=== PATIENT | female | born 1950 | race Caucasian/White ===

== ENCOUNTER 2020-01-03 11:23 | Inpatient (IN) | payer MEDICARE, MEDICAID ==
[~2020-01-03] VITALS: Ht 154.9 cm; Wt 124.0 kg
[2020-01-03 12:15] LABS: BARBITURATES NEG (NEG); BENZODIAZEPINES NEG (NEG); CANNABINOIDS NEG (NEG); COCAINE NEG (NEG); METHADONE NEG (NEG); OPIATES NEG (NEG); PHENCYCLIDINE NEG (NEG)
[2020-01-03 12:16] LABS: AMPHETAMINE/METHAMPHETAMINE NEG (NEG)
[2020-01-03 12:16] LABS: BASO % 0 % (0-3); EOS # 0.3 x10^3/uL (0.0-0.7); EOS % 4 % (0-3); HEMOGLOBIN 13.1 g/dL (12.0-15.5); LYMPH % 13 % (24-48); MEAN CORPUSCULAR HEMOGLOBIN 30 pg (25-35); MEAN CORPUSCULAR HGB CONC 33 g/dL (31-37); MEAN CORPUSCULAR VOLUME 93 fL (79-100); MONO # 0.6 x10^3/uL (0.0-1.1); MONO % 8 % (0-9); NEUT # 5.6 x10^3uL (1.8-7.7); NEUT % 75 % (31-73); PLATELET COUNT 199 x10^3/uL (140-400); RED BLOOD COUNT 4.32 x10^6/uL (3.50-5.40); RED CELL DISTRIBUTION WIDTH 14.8 % (11.5-14.5); WHITE BLOOD COUNT 7.5 x10^3/uL (4.0-11.0)
[2020-01-03 12:20] LABS: CALCIUM 8.3 mg/dL (8.5-10.1); CREATININE 0.8 mg/dL (0.6-1.0); GFR 71.5; POTASSIUM 3.3 mmol/L (3.5-5.1)
--- NOTE | 2020-01-03 12:27 | PHYS DOC ---
Past History Past Medical History: Arthritis, Cancer, Constipation, Depression, GERD, Hypertension, Hypothyroid, IBS, Schizophrenia, Other Additional Past Medical Histor: uterian cancer Past Surgical History: Appendectomy, Tonsillectomy, Other Additional Past Surgical Histo: exploratory abd; cystocele; uncertain if had hysterectomy Smoking: Non-smoker Alcohol Use: None Drug Use: None Adult General Chief Complaint Chief Complaint: PSYCH EVALUATION HPI HPI Patient is a pleasant 69-year-old female who presents to the ED for medical clearance before admission to the [facility] unit. Patient states that her only complaint is regarding a small skin tear on the right lower extremity that occurred as a result of a fall approximately 1 month prior. Patient is morbidly obese with chronic venous stasis and lower extremity edema at baseline. She wears 3 L O2 by nasal cannula at baseline and is currently at her baseline without increase of shortness of breath, work of breathing, or cough. She currently denies chest pain, patient's, fever, chills, urinary complaints, or changes in bowel or bladder habits. She denies active or passive suicidal ideation or homicidal ideation. She denies auditory or visual hallucination. Review of Systems Review of Systems Constitutional: Denies fever or chills Eyes: Denies redness or eye pain HENT: Denies nasal congestion or sore throat Respiratory: Denies cough or increase in shortness of breath Cardiovascular: Denies chest pain or palpitations GI: Denies abdominal pain, nausea, or vomiting : Denies dysuria or hematuria Musculoskeletal: Reports chronic back and joint pain. Reports chronic lower extremity edema. Integument: Reports right lower extremity skin tear. Denies rash. Neurologic: Denies headache, focal weakness or sensory changes Complete systems were reviewed and found to be within normal limits, except as documented in this note. Allergies Allergies Allergies Coded Allergies Type Severity Reaction Last Updated Verified Penicillins Allergy Unknown 01/03/20 Yes Sulfa (Sulfonamide Antibiotics) Allergy Unknown 01/03/20 Yes Physical Exam Physical Exam Constitutional: Morbidly obese female in hospital bed. Patient is pleasant and conversational during exam. In no acute distress and nontoxic in appearance HENT: Normocephalic, atraumatic, oropharynx moist Eyes: Conjunctiva normal, no discharge Cardiovascular: Heart rate normal, regular rhythm Lungs & Thorax: Diminished at bases,. No wheezing present. Poor inspiratory effort. No acute respiratory distress Abdomen: Soft, no tenderness Skin: Small skin tear noted to the lateral aspect of right leg. Dressing in place. Mild drainage present. Extremities: Bilateral lower extremity edema with discoloration consistent with chronic venous stasis dermatitis. Neurologic: Alert and oriented, no focal deficits noted Psychologic: Affect normal, judgment normal Current Patient Data Vital Signs Vital Signs Date Time Temp Pulse Resp B/P (MAP) Pulse Ox O2 Delivery O2 Flow Rate FiO2 01/03/20 11:37 98.3 77 18 145/81 (102) 98 Room Air EKG EKG 1157: Normal sinus rhythm with rate of 85. Normal axis. QT 374. QTC 445. QRS 86. No ST segment elevation or depression. Radiology/Procedures Radiology/Procedures PROCEDURE: CHEST AP ONLY CHEST AP ONLY History: Cough Comparison: None. Findings: Single view of the chest is submitted. There is mild right perihilar opacity which may be mild infiltrate. There is no dependent pleural fluid or pneumothorax. Cardiac silhouette is borderline in size. There is some degenerative change of the acromioclavicular joints bilaterally. Impression: 1. There is right perihilar opacity which may be infiltrate for which short-term follow-up treatment such as in 2-3 months may be beneficial. Electronically signed by: Domenic Gaspar MD (01/03/2020 12:56 PM) [id number] Course & Med Decision Making Course & Med Decision Making Pertinent Labs and Imaging studies reviewed. (See chart for details) Female presents to ED for medical clearance from [facility] with plan for admittance to [facility]. Nontoxic. EKG stable. Labs obtained and posted to chart. Hypokalemia addressed. UA with signs of infection. Empiric antibiotic given. Patient deemed medically cleared for inpatient psychiatric services. Will continued planned admission to senior behavioral unit for admission for further evaluation and treatment. with Dr. Morrow. Discussed findings and plan with patient, who acknowledges understanding and agreement. Dragon Disclaimer Dragon Disclaimer This electronic medical record was generated, in whole or in part, using a voice recognition dictation system. Departure Departure: Impression: Primary Impression: Medical clearance for psychiatric admission Additional Impressions: Hypokalemia Acute UTI Disposition: ADMITTED INPATIENT ([facility]) Condition: STABLE Referrals: CAS NICOLE DO (PCP) Problem Qualifiers CLARA KOHLER DO Jan 03, 2020 12:27
[2020-01-03 12:30] LABS: ACETAMIN < 2.0 mcg/mL (10-30); SALIC 0.9 mg/dL (2.8-20.0)
[2020-01-03 12:32] LABS: BILIRUBIN,URINE NEG (NEG); CLARITY,URINE CLEAR; COLOR,URINE YELLOW; GLUCOSE,URINE NEG (NEG)
[2020-01-03 12:33] LABS: BACTERIA,URINE 0 /HPF (0-FEW); NITRITE,URINE NEG (NEG); RBC,URINE OCC /HPF (0-2); SQUAMOUS EPITHELIAL CELL,UR MANY /LPF; UROBILINOGEN,URINE 0.2 mg/dL (0.2 mg/dL)
[2020-01-03 12:36] LABS: ALBUMIN 3.2 g/dL (3.4-5.0); ALBUMIN/GLOBULIN RATIO 0.8 (1.0-1.7); TOTAL BILIRUBIN 0.2 mg/dL (0.2-1.0); TOTAL PROTEIN 7.3 g/dL (6.4-8.2)
--- NOTE | 2020-01-03 12:59 | RAD ---
CHEST AP ONLY History: Cough Comparison: None. Findings: Single view of the chest is submitted. There is mild right perihilar opacity which may be mild infiltrate. There is no dependent pleural fluid or pneumothorax. Cardiac silhouette is borderline in size. There is some degenerative change of the acromioclavicular joints bilaterally. Impression: 1. There is right perihilar opacity which may be infiltrate for which short-term follow-up treatment such as in 2-3 months may be beneficial. Electronically signed by: Domenic Gaspar MD (01/03/2020 12:56 PM) [id number]
[2020-01-03] MEDS ORDERED: CEPHALEXIN 250 MG CAPSULE PO ONE (13:00)
[2020-01-03] MEDS ORDERED: POTASSIUM CHLORIDE 20 MEQ TABLET.ER. PO ONE ×2 (13:15)
--- NOTE | 2020-01-03 13:30 | EKG ---
[address] [address] Test Date: 2020-01-03 Test Time: 11:57:19 Pat Name: JASON FERMIN Department: Room: Gender: F [employer] Recovery: : 1950 Requested By: CLARA KOHLER Order Number: [id number] Reading MD: Carrillo Sanz Measurements Intervals [place] Rate: 85 P: 20 CO: 118 QRS: 16 QRSD: 86 T: 56 QT: 374 QTc: 445 Interpretive Statements SINUS RHYTHM NORMAL ECG Electronically Signed On 01-27-2020 8:36:43 CDT by Carrillo Sanz
[2020-01-03] MEDS: POLYVINYL ALCOHOL 1.4% OPHTH SOLUTION 15ML BOTTLE. OU SCH ×2 (14:00→21:00)
[2020-01-03] MEDS ORDERED: ACETAMINOPHEN 325 MG TABLET PO PRN (14:00)
[2020-01-03] MEDS: ACETAMINOPHEN 325 MG TABLET PO SCH ×2 (14:00→21:34)
[2020-01-03] MEDS ORDERED: MAG HYDROX/AL HYDROX/SIMETH 30 ML ORAL.SUSP PO PRN (14:00)
[2020-01-03] MEDS ORDERED: POLY15DR27 EACHEYE (14:01)
[2020-01-03] MEDS ORDERED: LEVO50TA5 PO (14:20)
[2020-01-03] MEDS ORDERED: TOPI100T8 PO (14:20)
[2020-01-03] MEDS ORDERED: METO5TAB4 PO (14:20)
[2020-01-03] MEDS ORDERED: POTA20TA4 PO (14:20)
[2020-01-03] MEDS ORDERED: LORA10TA55 PO (14:20)
[2020-01-03] MEDS ORDERED: ASPI81TA50 PO (14:20)
[2020-01-03] MEDS ORDERED: QUET100T4 PO (14:20)
[2020-01-03] MEDS ORDERED: ACET325T9 PO ×2 (14:20)
[2020-01-03] MEDS ORDERED: DULO60CA98 PO (14:20)
[2020-01-03] MEDS ORDERED: BENZ1TAB5 PO (14:20)
[2020-01-03] MEDS ORDERED: DIPH25CA58 PO (14:20)
[2020-01-03] MEDS ORDERED: LINA145C PO (14:20)
[2020-01-03] MEDS ORDERED: SPIR25TA5 PO (14:20)
[2020-01-03] MEDS ORDERED: MIRT30TA93 PO (14:20)
[2020-01-03] MEDS ORDERED: LATA2.5D3 EACHEYE (14:20)
[2020-01-03] MEDS ORDERED: MAG355OR12 PO (14:20)
[2020-01-03] MEDS ORDERED: MAGNESIUM HYDROXIDE 2,400 MG/30 ML ORAL.SUSP. PO PRN (14:30)
[2020-01-03] MEDS ORDERED: METHYL SALICYLATE/MENTHOL TOPICAL OINTMENT 57GM TUBE. TP PRN (14:30)
[2020-01-03 15:45] VITALS: BP 154/66
[2020-01-03 16:21] VITALS: BP 154/66
[2020-01-03] MEDS: LUBIPROSTONE 24 MCG CAPSULE PO SCH (18:00)
--- NOTE | 2020-01-03 21:25 | PDOC ---
Exam Note: David Note: Please also refer to the separate dictated note~for this date of service dictated separately. Discussed the patient with Nursing staff reviewed the chart.~Reviewed interim history and current functioning. Reviewed vital signs,~Labs/ Radiology~and current medications noted below. Continue current treatment with the changes noted in the dictated addendum note Assessment: Vital Signs/I&O: Vital Signs Date Time Temp Pulse Resp B/P (MAP) Pulse Ox O2 Delivery O2 Flow Rate FiO2 01/03/20 16:21 97.7 77 20 154/66 (95) 100 Room Air 3.0 Labs: Laboratory Tests Test 01/03/20 11:45 01/03/20 11:50 01/03/20 12:04 Urine Collection Type Unknown Urine Color Yellow Urine Clarity Clear Urine pH 7.0 Urine Specific [place] 1.015 Urine Protein Neg (NEG-TRACE) Urine Glucose (UA) Neg mg/dL (NEG) Urine Ketones (Stick) Neg mg/dL (NEG) Urine Blood Neg (NEG) Urine Nitrite Neg (NEG) Urine Bilirubin Neg (NEG) Urine Urobilinogen Dipstick 0.2 mg/dL (0.2 mg/dL) Urine Leukocyte Esterase Trace (NEG) Urine RBC Occ /HPF (0-2) Urine WBC 11-20 /HPF (0-4) Urine Squamous Epithelial Cells Many /LPF Urine Bacteria 0 /HPF (0-FEW) Urine Opiates Screen Neg (NEG) Urine Methadone Screen Neg (NEG) Urine Barbiturates Neg (NEG) Urine Phencyclidine Screen Neg (NEG) Urine Amphetamine/Methamphetamine Neg (NEG) Urine Benzodiazepines Screen Neg (NEG) Urine Cocaine Screen Neg (NEG) Urine Cannabinoids Screen Neg (NEG) Urine Ethyl Alcohol Neg (NEG) White Blood Count 7.5 x10^3/uL (4.0-11.0) Red Blood Count 4.32 x10^6/uL (3.50-5.40) Hemoglobin 13.1 g/dL (12.0-15.5) Hematocrit 40.0 % (36.0-47.0) Mean Corpuscular Volume 93 fL (79-100) Mean Corpuscular Hemoglobin 30 pg (25-35) Mean Corpuscular Hemoglobin Concent 33 g/dL (31-37) Red Cell Distribution Width 14.8 % (11.5-14.5) H Platelet Count 199 x10^3/uL (140-400) Neutrophils (%) (Auto) 75 % (31-73) H Lymphocytes (%) (Auto) 13 % (24-48) L Monocytes (%) (Auto) 8 % (0-9) Eosinophils (%) (Auto) 4 % (0-3) H Basophils (%) (Auto) 0 % (0-3) Neutrophils # (Auto) 5.6 x10^3uL (1.8-7.7) Lymphocytes # (Auto) 1.0 x10^3/uL (1.0-4.8) Monocytes # (Auto) 0.6 x10^3/uL (0.0-1.1) Eosinophils # (Auto) 0.3 x10^3/uL (0.0-0.7) Basophils # (Auto) 0.0 x10^3/uL (0.0-0.2) Sodium Level 138 mmol/L (136-145) Potassium Level 3.3 mmol/L (3.5-5.1) L Chloride Level 98 mmol/L (98-107) Carbon Dioxide Level 31 mmol/L (21-32) Anion Gap 9 (6-14) Blood Urea Nitrogen 14 mg/dL (7-20) Creatinine 0.8 mg/dL (0.6-1.0) Estimated GFR (Cockcroft-Gault) 71.5 BUN/Creatinine Ratio 18 (6-20) Glucose Level 94 mg/dL (70-99) Calcium Level 8.3 mg/dL (8.5-10.1) L Magnesium Level 2.0 mg/dL (1.8-2.4) Total Bilirubin 0.2 mg/dL (0.2-1.0) Aspartate Amino Transferase (AST) 18 U/L (15-37) Alanine Aminotransferase (ALT) 18 U/L (14-59) Alkaline Phosphatase 78 U/L (46-116) Creatine Kinase 105 U/L (26-192) Creatine Kinase MB (Mass) 2.3 ng/mL (0.0-3.6) Creatine Kinase MB Relative Index 2.2 % (0-4) Troponin I Quantitative 0.049 ng/mL (0-0.055) Total Protein 7.3 g/dL (6.4-8.2) Albumin 3.2 g/dL (3.4-5.0) L Albumin/Globulin Ratio 0.8 (1.0-1.7) L Salicylates Level 0.9 mg/dL (2.8-20.0) L Salicylate Last Dose Date Unknown Salicylate Last Dose Time Unknown Acetaminophen Level < 2.0 mcg/mL (10-30) L Acetaminophen Last Dose Date Unknown Acetaminophen Last Dose Time Unknown Ethyl Alcohol Level < 10 mg/dL (0-10) Prothrombin Time 10.2 SEC (9.4-11.4) Prothrombin Time INR 1.0 (0.9-1.1) Activated Partial Thromboplast Time 27 SEC (23-33) Current Medications: Meds: Current Medications Medications (Trade) Dose Ordered Sig/Carlos Route PRN Reason Start Time Stop Time Status Last Admin Dose Admin Cephalexin HCl (Keflex) 500 mg 1X ONCE PO 01/03/20 13:00 01/03/20 13:01 DC 01/03/20 13:17 Potassium Chloride (Klor-Con) 40 meq 1X ONCE PO 01/03/20 13:15 01/03/20 13:16 DC 01/03/20 13:18 Lubiprostone (Amitiza) 24 mcg BIDWMEALS PO 01/03/20 18:00 01/03/20 18:00 I have reviewed the current psychotropics carefully including drug interactions. Risk benefit ratio favors no change other than as noted in my dictated progress note. Diagnosis: Problems: (1) Medical clearance for psychiatric admission (2) Anxiety disorder (3) Schizoaffective disorder, chronic condition with acute exacerbation (4) Impulse control disorder TERRENCE DANIEL MD Jan 03, 2020 21:25
[2020-01-03] MEDS: QUEtiapine 100 MG TABLET. PO SCH (21:34)
[2020-01-03] MEDS: TOPIRAMATE 100 MG TABLET. PO SCH (21:34)
[2020-01-03] MEDS: DULoxetine HCL 60 MG CAPSULE.DR PO SCH (21:34)
[2020-01-03] MEDS: MIRTAZAPINE ODT 30 MG TAB.RAPDIS. PO SCH (21:34)
[2020-01-03] MEDS: BENZTROPINE MESYLATE 1 MG TABLET PO SCH (21:34)
[2020-01-03] MEDS: LATANOPROST 0.005% OPHTH SOLUTION 2.5ML BOTTLE. OU SCH (21:34)
[2020-01-04 05:07] LABS: HEMOGLOBIN A1C 5.5 % (4.8-5.6)
[2020-01-04] MEDS: LEVOTHYROXINE 50 MCG TABLET PO SCH (06:17)
[2020-01-04 06:36] VITALS: BP 136/81
[2020-01-04 08:07] LABS: THYROXINE 9.4 ug/dL (4.5-12.0)
[2020-01-04] MEDS: ACETAMINOPHEN 325 MG TABLET PO SCH ×3 (08:43→21:24)
[2020-01-04] MEDS: ASPIRIN ENTERIC COATED 81 MG TABLET.DR. PO SCH (08:43)
[2020-01-04] MEDS: LUBIPROSTONE 24 MCG CAPSULE PO SCH ×2 (08:43→17:00)
[2020-01-04] MEDS: QUEtiapine 100 MG TABLET. PO SCH ×2 (08:43→21:25)
[2020-01-04] MEDS: TOPIRAMATE 100 MG TABLET. PO SCH ×2 (08:43→21:22)
[2020-01-04] MEDS: POLYVINYL ALCOHOL 1.4% OPHTH SOLUTION 15ML BOTTLE. OU SCH ×3 (08:44→21:30)
[2020-01-04] MEDS: SPIRONOLACTONE 25 MG TABLET PO SCH (08:44)
[2020-01-04] MEDS: BENZTROPINE MESYLATE 1 MG TABLET PO SCH ×2 (08:44→21:37)
[2020-01-04] MEDS: CETIRIZINE HCL 10 MG TABLET PO SCH (08:44)
[2020-01-04] MEDS ORDERED: POTASSIUM CHLORIDE 20 MEQ TABLET.ER. PO SCH (09:00)
[2020-01-04 10:15] LABS: THYROID STIM HORMONE (TSH) 2.314 uIU/mL (0.358-3.740)
[2020-01-04] MEDS: POTASSIUM CHLORIDE 20 MEQ TABLET.ER. PO SCH ×2 (13:03→21:29)
--- NOTE | 2020-01-04 14:14 | CONS ---
DATE OF CONSULTATION: REASON FOR CONSULTATION: Medical management. HISTORY OF PRESENT ILLNESS: The patient is a 69-year-old female patient, a resident at [facility], who was admitted on account of increased anger, verbal aggression towards staff, refusing cares, argumentative, urinating on the floor, marked mood lability, threatening staff and peers, all this in a background of schizophrenia and major depressive disorder. Medically, she has multiple medical problems including hypertension, gastroesophageal reflux disease, irritable bowel syndrome, constipation, osteoporosis, glaucoma, hypothyroidism, hypokalemia, hypocalcemia and gait abnormality and muscle weakness. PAST PSYCHIATRIC HISTORY: Significant for major depressive disorder as well as schizophrenia. PAST SURGICAL HISTORY: Unremarkable. ALLERGIES: SHE IS ALLERGIC TO PENICILLIN, SULFA DRUGS AND ERYTHROMYCIN. MEDICATIONS: She is currently on following medications: She is on diphenhydramine 50 mg every 6 hours, loratadine 10 mg daily, spironolactone 25 mg daily, aspirin 81 mg once a day, acetaminophen 650 mg every 4 hours as needed, topiramate 150 mg twice a day for migraine headache, duloxetine 60 mg at bedtime, mirtazapine 30 mg at bedtime, Seroquel 100 mg twice a day, benztropine mesylate 1 mg twice a day, potassium chloride 40 mEq once a day, metolazone 5 mg once a week, latanoprost 1 drop to both eyes at bedtime, artificial tears 1 drop to both eyes 3 times a day, Maalox 30 mL every 4 hours, linaclotide for Linzess 145 mcg once a day, levothyroxine sodium 50 mcg once a day. FAMILY HISTORY: Noncontributory. SOCIAL HISTORY: She has been a resident at [facility] for almost 10 years. She does not smoke or drink alcohol. She said that she worked for about 5 years for a [employer]. PHYSICAL EXAMINATION: GENERAL: When I saw her, she was sitting comfortably in her wheelchair, in no apparent respiratory distress. No pallor, jaundice, cyanosis or thyromegaly. No jugular venous distention. No lower limb edema. She does have chronic bilateral lower extremity lymphedema. VITAL SIGNS: Her heart rate was 82, blood pressure 136/81, temperature was 97.8, respiratory rate was 18 and oxygen saturation was 95% on 2 liters of oxygen. HEAD, EYES, EARS, NOSE AND THROAT: Showed normocephalic, atraumatic. NECK: Supple. CARDIAC: Normal first and second heart sounds. No gallop or murmur. CHEST: Clear to auscultation. No crepitation or rhonchi. ABDOMEN: Markedly distended, soft, nontender. NEUROLOGIC: She is awake, alert, responding appropriately. All cranial nerves intact. She moves upper extremities to much greater extent than lower extremities. She is mostly bed-bound. She is able to ambulate with a walker with assistance. LABORATORY DATA: Her lab work showed a white cell count 7500, hemoglobin 13, hematocrit 40, MCV 93 and platelet count 199,000. Her prothrombin time, INR and aPTT were normal. Her chemistry showed that her serum sodium was 138, potassium 3.3, chloride 98, bicarbonate 31, anion gap of 9, BUN 14, creatinine 0.8, estimated GFR was 71 mL per minute. Her glucose was 94. Calcium was 8.3, magnesium was 2. Total bilirubin, AST, ALT, alkaline phosphatase were normal. Total protein was 7.3, albumin was 3.2. Her hemoglobin A1c was 5.5%. Serum iron was 26, TIBC was 231 and iron saturation was 111, all consistent with anemia of chronic disease. Her serum triglycerides 150, total cholesterol 122, LDL cholesterol 55, VLDL was 30, HDL cholesterol 37, the ratio was 3. TSH, total T4 and total T3 are all within normal range. Her urinalysis showed the urine was yellow, clear with a pH of 7, specific gravity of 1.015. The urine was negative for protein, glucose, ketones, blood, nitrite. There is a trace of leukocyte esterase. Occasional rbc's, 11-20 wbc's, and no bacteria. Her toxic screen was essentially negative. IMPRESSION: In summary, this is a 69-year-old female patient, a resident at [facility], who was admitted on account of increased anger, verbal aggression towards staff, refusing cares, argumentative, urinating on the floor with marked mood lability and threatening staff and peers, all this in a background of schizophrenia and major depressive disorder. Medically, she has multiple medical problems; however, she generally seemed to be stable. She does have hypokalemia despite being on 40 mEq of potassium chloride daily; however, her calcium is normal, although she carries a diagnosis of hypothyroidism, she is both clinically and biochemically euthyroid. PLAN: My plan is to increase her potassium may be to 3 times a day and other than that she seemed to be medically stable. I will follow all her lab works that are still pending at the time of this dictation and make any necessary recommendation. Thank you, Dr. Rico for allowing me to participate in the care of this patient. JENNIFER ARRIAGA MD DR: YOANA/macario JOB#: [id number] / [id number]
[2020-01-04 15:57] VITALS: BP 149/81
--- NOTE | 2020-01-04 21:19 | PDOC ---
Exam Note: David Note: Please also refer to the separate dictated note~for this date of service dictated separately.~Patient seen individually. Discussed the patient with Nursing staff reviewed the chart.~Reviewed interim history and current functioning. Reviewed vital signs,~Labs/ Radiology~and current medications noted below. Continue current treatment with the changes noted in the dictated addendum note Assessment: Vital Signs/I&O: Vital Signs Date Time Temp Pulse Resp B/P (MAP) Pulse Ox O2 Delivery O2 Flow Rate FiO2 01/04/20 15:57 97.4 89 16 149/81 (103) 98 01/04/20 06:36 Nasal Cannula 2.0 I & O 01/03/20 01/03/20 01/04/20 15:00 23:00 07:00 Intake Total 360 ml Balance 360 ml Current Medications: Meds: Current Medications Medications (Trade) Dose Ordered Sig/Carlos Route PRN Reason Start Time Stop Time Status Last Admin Dose Admin Aspirin (Aspirin Enteric Coated) 81 mg DAILY PO 01/04/20 09:00 01/04/20 08:43 Levothyroxine Sodium (Synthroid) 50 mcg DAILY06 PO 01/04/20 06:00 01/04/20 06:17 Potassium Chloride (Klor-Con) 40 meq DAILY PO 01/04/20 09:00 01/04/20 12:18 DC 01/04/20 08:44 Spironolactone (Aldactone) 25 mg DAILY PO 01/04/20 09:00 01/04/20 08:44 Cetirizine HCl (ZyrTEC) 10 mg DAILY PO 01/04/20 09:00 01/04/20 08:44 Potassium Chloride (Klor-Con) 20 meq TID PO 01/04/20 14:00 01/04/20 13:03 I have reviewed the current psychotropics carefully including drug interactions. Risk benefit ratio favors no change other than as noted in my dictated progress note. Diagnosis: Problems: (1) Anxiety disorder (2) Schizoaffective disorder, chronic condition with acute exacerbation (3) Impulse control disorder TERRENCE DANIEL MD Jan 04, 2020 21:19
[2020-01-04] MEDS: MIRTAZAPINE ODT 30 MG TAB.RAPDIS. PO SCH (21:24)
[2020-01-04] MEDS: DULoxetine HCL 60 MG CAPSULE.DR PO SCH (21:30)
[2020-01-04] MEDS: LATANOPROST 0.005% OPHTH SOLUTION 2.5ML BOTTLE. OU SCH (21:30)
--- NOTE | 2020-01-04 21:54 | HP ---
ADMIT DATE: 01/03/2020 PSYCHIATRIC ADMISSION HISTORY/EVALUATION The patient was seen individually evening of 01/03/2020. IDENTIFYING DATA: The patient is a 69-year-old female referred to us from [facility] by Dr. Lowry, her primary care physician on account of increasing anger, verbal aggression towards staff, refusing cares, argumentative, urinating on the floor, having marked mood lability, threatening staff and peers. This is within the context of a diagnosis of schizophrenia versus schizoaffective disorder, bipolar type. She had failed outpatient psychiatric interventions. Behaviors were deemed dangerous, unmanageable at the facility, resulting in this referral. CHIEF COMPLAINT: "I am okay." HISTORY OF PRESENT ILLNESS: The patient has a long history of schizoaffective disorder, bipolar type. She has been residing at the above facility for some time, but recently getting more agitated with marked mood lability, sleep and appetite changes, paranoia, agitation and aggression. No active suicidal or homicidal ideation. Cognitively, she is reasonably intact. PAST PSYCHIATRIC HISTORY: As above. MEDICAL HISTORY: Hypertension, GERD, irritable bowel syndrome, chronic constipation, osteoporosis, frequent falls, left knee pain, CHF, glaucoma, hypothyroidism, hypokalemia, hypocalcemia, gait abnormality and muscle weakness. ACCU-CHEKS: Negative. DIET: Regular. CODE STATUS: Full code. ALLERGIES: PENICILLIN and SULFA. Ambulates in wheelchair, transfers herself. CURRENT PSYCHOTROPICS: Cogentin 1 mg b.i.d., Cymbalta 60 mg at bedtime, Remeron 30 mg at bedtime, Seroquel 100 mg b.i.d. FAMILY HISTORY: Noncontributory. SOCIAL HISTORY: No history of alcohol, drug abuse, physical, sexual or elder abuse. She is not known to be a perpetrator. REACTION TO HOSPITALIZATION: The patient accepting of it. ASSETS: Supportive living at the above facility. MENTAL STATUS EXAMINATION: The patient was seen individually evening of 01/03/2020. She is in a wheelchair, oriented to herself, situations. Speech is coherent, has some latency. Abstraction fair, computation impaired, language function intact, attention span short. Mood and affect remains somewhat labile and she is paranoid, suspicious and distractible. No active suicidal or homicidal ideation. LABORATORY DATA: Reviewed. IMPRESSION: Schizoaffective disorder, bipolar type, mixed with psychotic features; anxiety disorder, unspecified; impulse control disorder. Rest as above. PLAN: Admit to Geropsychiatry Unit at [facility]. The patient will be seen daily individually from a psychiatric standpoint by myself, medical followup with Dr. Bragg. May consider reducing Cogentin given her history of chronic constipation. May consider adding a mood stabilizer with her schizoaffective disorder, bipolar type diagnosis and then adjusting Seroquel. We will make all these decisions post baseline assessment. TERRENCE DANIEL MD DR: GILDA/macario JOB#: [id number] / [id number]
[2020-01-05] MEDS: LEVOTHYROXINE 50 MCG TABLET PO SCH (06:19)
[2020-01-05 06:25] VITALS: BP_SYST 106; BP_SYST 157; BP_DIAS 62; BP_DIAS 87
[2020-01-05] MEDS: ASPIRIN ENTERIC COATED 81 MG TABLET.DR. PO SCH (08:17)
[2020-01-05] MEDS: TOPIRAMATE 100 MG TABLET. PO SCH ×2 (08:17→20:27)
[2020-01-05] MEDS: POTASSIUM CHLORIDE 20 MEQ TABLET.ER. PO SCH ×3 (08:18→20:29)
[2020-01-05] MEDS: DIVALPROEX 125 MG CAP.SPRINK PO SCH ×2 (08:18→20:29)
[2020-01-05] MEDS: ACETAMINOPHEN 325 MG TABLET PO SCH ×3 (08:18→20:26)
[2020-01-05] MEDS: QUEtiapine 100 MG TABLET. PO SCH ×2 (08:18→20:28)
[2020-01-05] MEDS: CETIRIZINE HCL 10 MG TABLET PO SCH (08:19)
[2020-01-05] MEDS: BENZTROPINE MESYLATE 1 MG TABLET PO SCH ×2 (08:19→20:28)
[2020-01-05] MEDS: SPIRONOLACTONE 25 MG TABLET PO SCH (08:19)
[2020-01-05] MEDS: POLYVINYL ALCOHOL 1.4% OPHTH SOLUTION 15ML BOTTLE. OU SCH ×3 (09:00→20:26)
[2020-01-05] MEDS: LUBIPROSTONE 24 MCG CAPSULE PO SCH ×2 (12:27→17:09)
[2020-01-05 15:33] VITALS: BP 136/85
[2020-01-05] MEDS: LATANOPROST 0.005% OPHTH SOLUTION 2.5ML BOTTLE. OU SCH (20:25)
[2020-01-05] MEDS: MIRTAZAPINE ODT 30 MG TAB.RAPDIS. PO SCH (20:28)
[2020-01-05] MEDS: DULoxetine HCL 60 MG CAPSULE.DR PO SCH (20:29)
--- NOTE | 2020-01-05 22:13 | PN ---
DATE: 01/04/2020 PSYCHIATRIC PROGRESS NOTE This late entry 01/04/2020 covers elements not covered in my initial note. SUBJECTIVE: I met with the patient evening of 01/04/2020. Per OSMANI Lopez, the patient slept 8-1/4 hours previous night. She has been helpful with her ADLs. REVIEW OF SYSTEMS: Ambulation impaired, in wheelchair. No CV, , pulmonary, eye, ENT system symptoms on review. MENTAL STATUS EXAM: Reasonably oriented. Speech is coherent, met with her at length in her room. Abstraction fair, computation impaired, language function intact, attention span short. Mood and affect somewhat anxious, slightly paranoid. LABORATORY DATA: Reviewed. IMPRESSION: Schizoaffective disorder, bipolar type, mixed with psychotic features. Rest unchanged. PLAN: She is on no mood stabilizer. We will start Depakote 250 b.i.d. Check CBC, CMP, valproic acid level in 3 days. She is on Cogentin 1 mg b.i.d. as a history of chronic constipation. No clear indication for the Cogentin. We will reduce to 0.5 mg twice a day. Maintain Seroquel 100 mg b.i.d., Remeron 30 mg at bedtime for now. Adjust further as clinically indicated. She does get a little short of breath, is on O2 at 2 liters during the day, 3 liters at night. MAN Dilan DANIEL MD DR: GILDA/macario JOB#: [id number] / [id number]
--- NOTE | 2020-01-05 22:40 | PDOC ---
Exam Note: David Note: Please also refer to the separate dictated note~for this date of service dictated separately.~Patient seen individually. Discussed the patient with Nursing staff reviewed the chart.~Reviewed interim history and current functioning. Reviewed vital signs,~Labs/ Radiology~and current medications noted below. Continue current treatment with the changes noted in the dictated addendum note Assessment: Vital Signs/I&O: Vital Signs Date Time Temp Pulse Resp B/P (MAP) Pulse Ox O2 Delivery O2 Flow Rate FiO2 01/05/20 15:33 98.2 87 18 136/85 (102) 98 01/05/20 06:25 2.0 01/04/20 06:36 Nasal Cannula I & O 0 01/04/20 01/04/20 01/05/20 15:00 23:00 07:00 Intake Total 600 ml 0 ml 400 ml Balance 600 ml 0 ml 400 ml Current Medications: Meds: Current Medications Medications (Trade) Dose Ordered Sig/Carlos Route PRN Reason Start Time Stop Time Status Last Admin Dose Admin Divalproex Sodium (Depakote Sprinkles) 250 mg BID PO 01/05/20 09:00 01/05/20 20:29 I have reviewed the current psychotropics carefully including drug interactions. Risk benefit ratio favors no change other than as noted in my dictated progress note. Diagnosis: Problems: (1) Acute UTI (2) Medical clearance for psychiatric admission (3) Anxiety disorder (4) Schizoaffective disorder, chronic condition with acute exacerbation (5) Impulse control disorder TERRENCE DANIEL MD Jan 05, 2020 22:40
[2020-01-06] MEDS: diphenhydrAMINE HCL 25 MG CAPSULE PO PRN (05:59)
[2020-01-06] MEDS: LEVOTHYROXINE 50 MCG TABLET PO SCH (05:59)
[2020-01-06 06:24] VITALS: BP 139/82
[2020-01-06] MEDS: DIVALPROEX 125 MG CAP.SPRINK PO SCH ×2 (08:38→20:14)
[2020-01-06] MEDS: POTASSIUM CHLORIDE 20 MEQ TABLET.ER. PO SCH ×3 (08:38→20:13)
[2020-01-06] MEDS: CETIRIZINE HCL 10 MG TABLET PO SCH (08:39)
[2020-01-06] MEDS: TOPIRAMATE 100 MG TABLET. PO SCH ×2 (08:39→20:15)
[2020-01-06] MEDS: QUEtiapine 100 MG TABLET. PO SCH ×2 (08:39→20:15)
[2020-01-06] MEDS: SPIRONOLACTONE 25 MG TABLET PO SCH (08:39)
[2020-01-06] MEDS: ACETAMINOPHEN 325 MG TABLET PO SCH ×3 (08:39→20:16)
[2020-01-06] MEDS: POLYVINYL ALCOHOL 1.4% OPHTH SOLUTION 15ML BOTTLE. OU SCH ×3 (08:40→20:12)
[2020-01-06] MEDS: ASPIRIN ENTERIC COATED 81 MG TABLET.DR. PO SCH (08:40)
[2020-01-06] MEDS: LUBIPROSTONE 24 MCG CAPSULE PO SCH ×2 (08:40→17:29)
[2020-01-06] MEDS: BENZTROPINE MESYLATE 1 MG TABLET PO SCH ×2 (08:40→20:13)
[2020-01-06 16:15] VITALS: BP 170/84
[2020-01-06] MEDS: LATANOPROST 0.005% OPHTH SOLUTION 2.5ML BOTTLE. OU SCH (20:12)
[2020-01-06] MEDS: DULoxetine HCL 60 MG CAPSULE.DR PO SCH (20:14)
[2020-01-06] MEDS: MIRTAZAPINE ODT 30 MG TAB.RAPDIS. PO SCH (20:15)
--- NOTE | 2020-01-06 20:38 | PN ---
DATE: 01/05/2020 PSYCHIATRIC PROGRESS NOTE This late entry 01/05/2020 covers the elements not covered in my initial note. SUBJECTIVE: I met with the patient in the evening of 01/05/2020. Per OSMANI Stoddard, the patient slept 5-1/2 hours previous night. She has been somewhat withdrawn, anxious, restless, somewhat obsessive, spends much time in her room, which is where I met with her. REVIEW OF SYSTEMS: Ambulation impaired, in wheelchair. No CV, , pulmonary, eye system symptoms on review. Complains of some tiredness, difficulty ambulating. Reliability fair. MENTAL STATUS EXAM: Oriented to herself and situation. Speech has some latency, coherent. Abstraction fair, computation impaired, language function intact, attention span short. Mood and affect withdrawn. LABORATORY DATA: Reviewed. IMPRESSION: Schizoaffective disorder, bipolar type, mixed. Rest unchanged. PLAN: No change from initial note. TERRENCE DANIEL MD DR: GILDA/macario JOB#: [id number] / [id number]
--- NOTE | 2020-01-06 21:47 | PDOC ---
Exam Note: David Note: Please also refer to the separate dictated note~for this date of service dictated separately.~Patient seen individually. Discussed the patient with Nursing staff reviewed the chart.~Reviewed interim history and current functioning. Reviewed vital signs,~Labs/ Radiology~and current medications noted below. Continue current treatment with the changes noted in the dictated addendum note Assessment: Vital Signs/I&O: Vital Signs Date Time Temp Pulse Resp B/P (MAP) Pulse Ox O2 Delivery O2 Flow Rate FiO2 01/06/20 16:15 98.0 88 16 170/84 (112) 96 2.0 01/04/20 06:36 Nasal Cannula I & O 01/05/20 01/05/20 01/06/20 15:00 23:00 07:00 Intake Total 600 ml 360 ml 100 ml Balance 600 ml 360 ml 100 ml Current Medications: Meds: Current Medications Medications (Trade) Dose Ordered Sig/Carlos Route PRN Reason Start Time Stop Time Status Last Admin Dose Admin Quetiapine Fumarate (SEROquel) 200 mg QHS PO 01/06/20 21:00 01/06/20 20:15 I have reviewed the current psychotropics carefully including drug interactions. Risk benefit ratio favors no change other than as noted in my dictated progress note. Diagnosis: Problems: (1) Anxiety disorder (2) Schizoaffective disorder, chronic condition with acute exacerbation (3) Impulse control disorder (4) Schizoaffective disorder, bipolar type TERRENCE DANIEL MD Jan 06, 2020 21:47
[2020-01-07 06:26] VITALS: BP 145/81
[2020-01-07] MEDS: LEVOTHYROXINE 50 MCG TABLET PO SCH (06:37)
[2020-01-07] MEDS: TOPIRAMATE 100 MG TABLET. PO SCH ×2 (07:23→21:09)
[2020-01-07] MEDS: ACETAMINOPHEN 325 MG TABLET PO SCH ×3 (07:24→21:08)
[2020-01-07] MEDS: SPIRONOLACTONE 25 MG TABLET PO SCH (07:25)
[2020-01-07] MEDS: CETIRIZINE HCL 10 MG TABLET PO SCH (07:25)
[2020-01-07] MEDS: POTASSIUM CHLORIDE 20 MEQ TABLET.ER. PO SCH ×3 (07:25→21:10)
[2020-01-07] MEDS: BENZTROPINE MESYLATE 1 MG TABLET PO SCH ×2 (07:26→21:10)
[2020-01-07] MEDS: LUBIPROSTONE 24 MCG CAPSULE PO SCH ×2 (07:26→17:22)
[2020-01-07] MEDS: ASPIRIN ENTERIC COATED 81 MG TABLET.DR. PO SCH (07:26)
[2020-01-07] MEDS: DIVALPROEX 125 MG CAP.SPRINK PO SCH ×2 (07:26→21:10)
[2020-01-07] MEDS: POLYVINYL ALCOHOL 1.4% OPHTH SOLUTION 15ML BOTTLE. OU SCH ×3 (07:27→21:11)
[2020-01-07 16:06] VITALS: BP 149/67
[2020-01-07] MEDS ORDERED: NYSTATIN TOPICAL POWDER 15GM BOTTLE. TP PRN (17:30)
--- NOTE | 2020-01-07 20:05 | PN ---
DATE: 01/06/2020 PSYCHIATRIC PROGRESS NOTE This late entry 01/06/2020 covers elements not covered in my initial note. SUBJECTIVE: I met with the patient evening of 01/06/2020. Per OSMANI Melendez, the patient slept 10 hours previous night. She has been anxious, restless at times, more so with cares, somewhat withdrawn at other times, had bowel movement x 1. Somewhat sedated during the day questionably due to Seroquel partly. REVIEW OF SYSTEMS: Ambulation impaired, in wheelchair. No CV, , pulmonary, eye system symptoms on review. MENTAL STATUS EXAM: Reasonably oriented. Speech has some latency, coherent. Abstraction fair, computation impaired, language function intact, attention span short. Mood and affect somewhat withdrawn, labile at times. LABORATORY DATA: Reviewed. IMPRESSION: Unchanged from initial note. PLAN: Change Seroquel from 100 mg b.i.d. to 200 mg at bedtime due to daytime sedation. Rest unchanged from initial note including Cymbalta, Remeron. Cogentin has been reduced. TERRENCE DANIEL MD DR: GILDA/macario JOB#: [id number] / [id number]
[2020-01-07] MEDS: MIRTAZAPINE ODT 30 MG TAB.RAPDIS. PO SCH (21:08)
[2020-01-07] MEDS: DULoxetine HCL 60 MG CAPSULE.DR PO SCH (21:08)
[2020-01-07] MEDS: QUEtiapine 100 MG TABLET. PO SCH (21:08)
[2020-01-07] MEDS: LATANOPROST 0.005% OPHTH SOLUTION 2.5ML BOTTLE. OU SCH (21:11)
--- NOTE | 2020-01-07 21:42 | PDOC ---
Exam Note: David Note: Please also refer to the separate dictated note~for this date of service dictated separately.~Patient seen individually. Discussed the patient with Nursing staff reviewed the chart.~Reviewed interim history and current functioning. Reviewed vital signs,~Labs/ Radiology~and current medications noted below. Continue current treatment with the changes noted in the dictated addendum note Assessment: Vital Signs/I&O: Vital Signs Date Time Temp Pulse Resp B/P (MAP) Pulse Ox O2 Delivery O2 Flow Rate FiO2 01/07/20 16:06 97.1 89 16 149/67 (94) 96 01/06/20 16:15 2.0 01/04/20 06:36 Nasal Cannula I & O 0 01/06/20 01/06/20 01/07/20 15:00 23:00 07:00 Intake Total 840 ml 340 ml Balance 840 ml 340 ml Current Medications: I have reviewed the current psychotropics carefully including drug interactions. Risk benefit ratio favors no change other than as noted in my dictated progress note. Diagnosis: Problems: (1) Schizoaffective disorder, bipolar type (2) Anxiety disorder (3) Schizoaffective disorder, chronic condition with acute exacerbation (4) Impulse control disorder TERRENCE DANIEL MD Jan 07, 2020 21:42
[2020-01-08] MEDS: LEVOTHYROXINE 50 MCG TABLET PO SCH (05:40)
[2020-01-08 06:24] VITALS: BP 153/80
[2020-01-08 06:49] LABS: BASO % 1 % (0-3); EOS # 0.2 x10^3/uL (0.0-0.7); EOS % 5 % (0-3); HEMATOCRIT 40.8 % (36.0-47.0); HEMOGLOBIN 13.1 g/dL (12.0-15.5); LYMPH # 0.9 x10^3/uL (1.0-4.8); LYMPH % 19 % (24-48); MEAN CORPUSCULAR HEMOGLOBIN 30 pg (25-35); MEAN CORPUSCULAR HGB CONC 32 g/dL (31-37); MEAN CORPUSCULAR VOLUME 95 fL (79-100); MONO # 0.2 x10^3/uL (0.0-1.1); MONO % 5 % (0-9); NEUT # 3.3 x10^3uL (1.8-7.7); NEUT % 70 % (31-73); PLATELET COUNT 164 x10^3/uL (140-400); RED BLOOD COUNT 4.32 x10^6/uL (3.50-5.40); RED CELL DISTRIBUTION WIDTH 14.9 % (11.5-14.5); WHITE BLOOD COUNT 4.7 x10^3/uL (4.0-11.0)
[2020-01-08 07:06] LABS: ALBUMIN 2.8 g/dL (3.4-5.0); ALBUMIN/GLOBULIN RATIO 0.7 (1.0-1.7); ALK PHOS 73 U/L (46-116); ALT (SGPT) 14 U/L (14-59); ANION GAP 4 (6-14); AST (SGOT) 12 U/L (15-37); BLOOD UREA NITROGEN 16 mg/dL (7-20); BUN/CREATININE RATIO 20 (6-20); CALCIUM 8.2 mg/dL (8.5-10.1); CARBON DIOXIDE 32 mmol/L (21-32); CHLORIDE 106 mmol/L (98-107); CREATININE 0.8 mg/dL (0.6-1.0); GFR 71.5; GLUCOSE 147 mg/dL (70-99); POTASSIUM 4.2 mmol/L (3.5-5.1); SODIUM 142 mmol/L (136-145); TOTAL BILIRUBIN 0.2 mg/dL (0.2-1.0); TOTAL PROTEIN 6.7 g/dL (6.4-8.2)
[2020-01-08 07:07] LABS: VAL ACID 22 mcg/mL (50-100)
[2020-01-08] MEDS: LUBIPROSTONE 24 MCG CAPSULE PO SCH ×2 (08:39→17:23)
[2020-01-08] MEDS: DIVALPROEX 125 MG CAP.SPRINK PO SCH ×2 (08:40→20:00)
[2020-01-08] MEDS: POTASSIUM CHLORIDE 20 MEQ TABLET.ER. PO SCH ×3 (08:40→20:01)
[2020-01-08] MEDS: POLYVINYL ALCOHOL 1.4% OPHTH SOLUTION 15ML BOTTLE. OU SCH ×3 (08:40→20:03)
[2020-01-08] MEDS: CETIRIZINE HCL 10 MG TABLET PO SCH (08:41)
[2020-01-08] MEDS: ASPIRIN ENTERIC COATED 81 MG TABLET.DR. PO SCH (08:41)
[2020-01-08] MEDS: SPIRONOLACTONE 25 MG TABLET PO SCH (08:41)
[2020-01-08] MEDS: TOPIRAMATE 100 MG TABLET. PO SCH ×2 (08:41→20:02)
[2020-01-08] MEDS: ACETAMINOPHEN 325 MG TABLET PO SCH ×3 (08:41→20:01)
[2020-01-08] MEDS: BENZTROPINE MESYLATE 1 MG TABLET PO SCH ×2 (08:41→20:03)
[2020-01-08] MEDS: metOLazone 5 MG TABLET PO SCH (08:42)
--- NOTE | 2020-01-08 13:26 | PN ---
DATE: 01/07/2020 PSYCHIATRIC PROGRESS NOTE This late entry 01/07/2020 covers elements not covered in my initial note. SUBJECTIVE: I met with the patient evening of 01/07/2020. Per OSMANI Hoover, the patient slept 6-1/4 hours previous night. She has been restless, attention seeking in the morning, listening to music on her tablet in the afternoon, did better, attended groups. We will check labs morning of 01/08/2020 to adjust the Depakote. REVIEW OF SYSTEMS: Ambulation impaired, in wheelchair. No CV, , pulmonary, eye, ENT system symptoms on review. MENTAL STATUS EXAM: Oriented to herself and situation. Speech is coherent, has some latency. Abstraction fair, computation impaired, language function intact, attention span short. Mood and affect somewhat anxious, labile. LABORATORY DATA: Reviewed. IMPRESSION: Schizoaffective disorder, bipolar type, mixed with psychotic features; anxiety disorder, unspecified. Rest unchanged. PLAN: Check labs and then make further adjustments in her psychotropics. Rest unchanged for now. TERRENCE DANIEL MD DR: GILDA/macario JOB#: [id number] / [id number]
[2020-01-08 15:41] VITALS: BP 138/83
[2020-01-08] MEDS: MIRTAZAPINE ODT 30 MG TAB.RAPDIS. PO SCH (20:01)
[2020-01-08] MEDS: QUEtiapine 100 MG TABLET. PO SCH (20:01)
[2020-01-08] MEDS: DULoxetine HCL 60 MG CAPSULE.DR PO SCH (20:01)
[2020-01-08] MEDS: LATANOPROST 0.005% OPHTH SOLUTION 2.5ML BOTTLE. OU SCH (20:03)
--- NOTE | 2020-01-08 21:55 | PDOC ---
Exam Note: David Note: Please also refer to the separate dictated note~for this date of service dictated separately.~Patient seen individually. Discussed the patient with Nursing staff reviewed the chart.~Reviewed interim history and current functioning. Reviewed vital signs,~Labs/ Radiology~and current medications noted below. Continue current treatment with the changes noted in the dictated addendum note Assessment: Vital Signs/I&O: Vital Signs Date Time Temp Pulse Resp B/P (MAP) Pulse Ox O2 Delivery O2 Flow Rate FiO2 01/08/20 15:41 97.6 84 18 138/83 (101) 96 01/06/20 16:15 2.0 01/04/20 06:36 Nasal Cannula I & O 01/07/20 01/07/20 01/08/20 15:00 23:00 07:00 Intake Total 1080 ml 340 ml Balance 1080 ml 340 ml Labs: Laboratory Tests Test 01/08/20 06:39 White Blood Count 4.7 x10^3/uL (4.0-11.0) Red Blood Count 4.32 x10^6/uL (3.50-5.40) Hemoglobin 13.1 g/dL (12.0-15.5) Hematocrit 40.8 % (36.0-47.0) Mean Corpuscular Volume 95 fL (79-100) Mean Corpuscular Hemoglobin 30 pg (25-35) Mean Corpuscular Hemoglobin Concent 32 g/dL (31-37) Red Cell Distribution Width 14.9 % (11.5-14.5) H Platelet Count 164 x10^3/uL (140-400) Neutrophils (%) (Auto) 70 % (31-73) Lymphocytes (%) (Auto) 19 % (24-48) L Monocytes (%) (Auto) 5 % (0-9) Eosinophils (%) (Auto) 5 % (0-3) H Basophils (%) (Auto) 1 % (0-3) Neutrophils # (Auto) 3.3 x10^3uL (1.8-7.7) Lymphocytes # (Auto) 0.9 x10^3/uL (1.0-4.8) L Monocytes # (Auto) 0.2 x10^3/uL (0.0-1.1) Eosinophils # (Auto) 0.2 x10^3/uL (0.0-0.7) Basophils # (Auto) 0.0 x10^3/uL (0.0-0.2) Sodium Level 142 mmol/L (136-145) Potassium Level 4.2 mmol/L (3.5-5.1) Chloride Level 106 mmol/L (98-107) Carbon Dioxide Level 32 mmol/L (21-32) Anion Gap 4 (6-14) L Blood Urea Nitrogen 16 mg/dL (7-20) Creatinine 0.8 mg/dL (0.6-1.0) Estimated GFR (Cockcroft-Gault) 71.5 BUN/Creatinine Ratio 20 (6-20) Glucose Level 147 mg/dL (70-99) H Calcium Level 8.2 mg/dL (8.5-10.1) L Total Bilirubin 0.2 mg/dL (0.2-1.0) Aspartate Amino Transferase (AST) 12 U/L (15-37) L Alanine Aminotransferase (ALT) 14 U/L (14-59) Alkaline Phosphatase 73 U/L (46-116) Total Protein 6.7 g/dL (6.4-8.2) Albumin 2.8 g/dL (3.4-5.0) L Albumin/Globulin Ratio 0.7 (1.0-1.7) L Valproic Acid Level 22 mcg/mL (50-100) L Valproic Acid Last Dose Date 01/07/20 Valproic Acid Last Dose Time 2100 Current Medications: Meds: Current Medications Medications (Trade) Dose Ordered Sig/Carlos Route PRN Reason Start Time Stop Time Status Last Admin Dose Admin Metolazone (Zaroxolyn) 5 mg WEEKLY PO 01/08/20 09:00 01/08/20 08:42 Divalproex Sodium (Depakote Sprinkles) 500 mg BID PO 01/08/20 21:00 01/08/20 20:00 I have reviewed the current psychotropics carefully including drug interactions. Risk benefit ratio favors no change other than as noted in my dictated progress note. Diagnosis: Problems: (1) Schizoaffective disorder, bipolar type (2) Anxiety disorder (3) Schizoaffective disorder, chronic condition with acute exacerbation (4) Impulse control disorder TERRENCE DANIEL MD Jan 08, 2020 21:54
[2020-01-09] MEDS: LEVOTHYROXINE 50 MCG TABLET PO SCH (05:11)
[2020-01-09 07:00] VITALS: BP 142/80
[2020-01-09] MEDS: POTASSIUM CHLORIDE 20 MEQ TABLET.ER. PO SCH ×3 (08:17→20:36)
[2020-01-09] MEDS: ASPIRIN ENTERIC COATED 81 MG TABLET.DR. PO SCH (08:17)
[2020-01-09] MEDS: BENZTROPINE MESYLATE 1 MG TABLET PO SCH ×2 (08:18→20:36)
[2020-01-09] MEDS: LUBIPROSTONE 24 MCG CAPSULE PO SCH ×2 (08:18→16:58)
[2020-01-09] MEDS: POLYVINYL ALCOHOL 1.4% OPHTH SOLUTION 15ML BOTTLE. OU SCH ×3 (08:18→20:33)
[2020-01-09] MEDS: ACETAMINOPHEN 325 MG TABLET PO SCH ×3 (08:18→20:35)
[2020-01-09] MEDS: SPIRONOLACTONE 25 MG TABLET PO SCH (08:18)
[2020-01-09] MEDS: DIVALPROEX 125 MG CAP.SPRINK PO SCH ×2 (08:18→20:37)
[2020-01-09] MEDS: CETIRIZINE HCL 10 MG TABLET PO SCH (08:19)
[2020-01-09] MEDS: TOPIRAMATE 100 MG TABLET. PO SCH ×2 (08:19→20:34)
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
[2020-01-09 16:35] VITALS: BP 135/77
[2020-01-09] MEDS: QUEtiapine 100 MG TABLET. PO SCH (20:33)
[2020-01-09] MEDS: LATANOPROST 0.005% OPHTH SOLUTION 2.5ML BOTTLE. OU SCH (20:33)
[2020-01-09] MEDS: DULoxetine HCL 60 MG CAPSULE.DR PO SCH (20:33)
[2020-01-09] MEDS: MIRTAZAPINE ODT 30 MG TAB.RAPDIS. PO SCH (20:36)
--- NOTE | 2020-01-09 21:46 | PDOC ---
Exam Note: David Note: Please also refer to the separate dictated note~for this date of service dictated separately.~Patient seen individually. Discussed the patient with Nursing staff reviewed the chart.~Reviewed interim history and current functioning. Reviewed vital signs,~Labs/ Radiology~and current medications noted below. Continue current treatment with the changes noted in the dictated addendum note Assessment: Vital Signs/I&O: Vital Signs Date Time Temp Pulse Resp B/P (MAP) Pulse Ox O2 Delivery O2 Flow Rate FiO2 01/09/20 16:35 98.2 82 20 135/77 (96) 96 01/06/20 16:15 2.0 01/04/20 06:36 Nasal Cannula I & O 0 01/08/20 01/08/20 01/09/20 15:00 23:00 07:00 Intake Total 1140 ml 900 ml Balance 1140 ml 900 ml Current Medications: I have reviewed the current psychotropics carefully including drug interactions. Risk benefit ratio favors no change other than as noted in my dictated progress note. Diagnosis: Problems: (1) Schizoaffective disorder, bipolar type (2) Acute UTI (3) Medical clearance for psychiatric admission (4) Anxiety disorder (5) Schizoaffective disorder, chronic condition with acute exacerbation (6) Impulse control disorder TERRENCE DANIEL MD Jan 09, 2020 21:46
[2020-01-10] MEDS: LEVOTHYROXINE 50 MCG TABLET PO SCH (05:03)
[2020-01-10 05:30] VITALS: BP 137/91
[2020-01-10] MEDS: LUBIPROSTONE 24 MCG CAPSULE PO SCH ×2 (08:18→17:42)
[2020-01-10] MEDS: POLYVINYL ALCOHOL 1.4% OPHTH SOLUTION 15ML BOTTLE. OU SCH ×3 (08:18→20:23)
[2020-01-10] MEDS: CETIRIZINE HCL 10 MG TABLET PO SCH (08:19)
[2020-01-10] MEDS: DIVALPROEX 125 MG CAP.SPRINK PO SCH ×2 (08:19→20:24)
[2020-01-10] MEDS: ACETAMINOPHEN 325 MG TABLET PO SCH ×3 (08:19→20:25)
[2020-01-10] MEDS: POTASSIUM CHLORIDE 20 MEQ TABLET.ER. PO SCH ×3 (08:20→20:24)
[2020-01-10] MEDS: SPIRONOLACTONE 25 MG TABLET PO SCH (08:20)
[2020-01-10] MEDS: TOPIRAMATE 100 MG TABLET. PO SCH ×2 (08:20→20:26)
[2020-01-10] MEDS: ASPIRIN ENTERIC COATED 81 MG TABLET.DR. PO SCH (08:21)
[2020-01-10] MEDS: BENZTROPINE MESYLATE 1 MG TABLET PO SCH ×2 (08:21→20:25)
[2020-01-10 15:46] VITALS: BP 146/68
[2020-01-10] MEDS: LATANOPROST 0.005% OPHTH SOLUTION 2.5ML BOTTLE. OU SCH (20:23)
[2020-01-10] MEDS: DULoxetine HCL 60 MG CAPSULE.DR PO SCH (20:24)
[2020-01-10] MEDS: QUEtiapine 100 MG TABLET. PO SCH (20:25)
[2020-01-10] MEDS: MIRTAZAPINE ODT 30 MG TAB.RAPDIS. PO SCH (20:26)
[2020-01-10] MEDS: POLYVINYL ALCOHOL/POVIDONE/PF OPHTH SOLUTION DROPERETTE. OU SCH (21:00)
--- NOTE | 2020-01-10 21:31 | PDOC ---
Exam Note: David Note: Please also refer to the separate dictated note~for this date of service dictated separately.~Patient seen individually. Discussed the patient with Nursing staff reviewed the chart.~Reviewed interim history and current functioning. Reviewed vital signs,~Labs/ Radiology~and current medications noted below. Continue current treatment with the changes noted in the dictated addendum note Assessment: Vital Signs/I&O: Vital Signs Date Time Temp Pulse Resp B/P (MAP) Pulse Ox O2 Delivery O2 Flow Rate FiO2 01/10/20 15:46 97.6 61 16 146/68 (94) 92 01/10/20 05:30 Nasal Cannula 2.0 I & O 01/09/20 01/09/20 01/10/20 15:00 23:00 07:00 Intake Total 960 ml 600 ml Balance 960 ml 600 ml Current Medications: I have reviewed the current psychotropics carefully including drug interactions. Risk benefit ratio favors no change other than as noted in my dictated progress note. Diagnosis: Problems: (1) Schizoaffective disorder, bipolar type (2) Acute UTI (3) Anxiety disorder (4) Schizoaffective disorder, chronic condition with acute exacerbation (5) Impulse control disorder TERRENCE DANIEL MD Jan 10, 2020 21:31
--- NOTE | 2020-01-10 23:33 | PN ---
DATE: 01/08/2020 PSYCHIATRIC PROGRESS NOTE This late entry 01/08/2020 covers elements not covered in my initial note. SUBJECTIVE: I met with the patient in the evening in her room. Per OSMANI Melendez, the patient slept 8-1/4 hours previous night. She has been somewhat withdrawn, sleepy at times. Valproic acid level 22, on Depakote 250 b.i.d., we will increase to 500 b.i.d. Check CBC, CMP, valproic acid level, ammonia level in 3 days. Adjust to reach therapeutic level. She continues to be somewhat paranoid with ongoing mood lability. REVIEW OF SYSTEMS: Ambulation impaired, in wheelchair. No CV, , PULMONARY, EYE system symptoms on review. MENTAL STATUS EXAM: Reasonably oriented. Speech is coherent, abstraction fair, computation impaired, language function intact, attention span short. Mood and affect somewhat withdrawn. LABORATORY DATA: Reviewed. IMPRESSION: Schizoaffective disorder, bipolar type, mixed with psychotic features. Rest unchanged. PLAN: No change from initial note other than what is noted above. MAN Dilan DANIEL MD DR: GILDA/macario JOB#: [id number] / [id number]
[2020-01-11] MEDS: LEVOTHYROXINE 50 MCG TABLET PO SCH (06:00)
[2020-01-11] MEDS: LUBIPROSTONE 24 MCG CAPSULE PO SCH ×2 (08:00→16:56)
[2020-01-11] MEDS: ASPIRIN ENTERIC COATED 81 MG TABLET.DR. PO SCH (09:00)
[2020-01-11] MEDS: POLYVINYL ALCOHOL/POVIDONE/PF OPHTH SOLUTION DROPERETTE. OU SCH ×3 (09:00→19:23)
[2020-01-11] MEDS: DIVALPROEX 125 MG CAP.SPRINK PO SCH ×2 (09:00→19:21)
[2020-01-11] MEDS: BENZTROPINE MESYLATE 1 MG TABLET PO SCH ×2 (09:00→19:22)
[2020-01-11] MEDS: POTASSIUM CHLORIDE 20 MEQ TABLET.ER. PO SCH ×3 (09:00→19:23)
[2020-01-11] MEDS: POLYVINYL ALCOHOL 1.4% OPHTH SOLUTION 15ML BOTTLE. OU SCH ×3 (09:00→19:20)
[2020-01-11] MEDS: TOPIRAMATE 100 MG TABLET. PO SCH ×2 (09:00→19:21)
[2020-01-11] MEDS: CETIRIZINE HCL 10 MG TABLET PO SCH (09:00)
[2020-01-11] MEDS: ACETAMINOPHEN 325 MG TABLET PO SCH ×3 (09:00→19:23)
[2020-01-11] MEDS: SPIRONOLACTONE 25 MG TABLET PO SCH (09:00)
--- NOTE | 2020-01-11 09:01 | PN ---
DATE: 01/10/2020 PSYCHIATRIC PROGRESS NOTE This late entry 01/10/2020 covers the elements not covered in my initial note. SUBJECTIVE: I met with the patient in the evening at length in her room. She slept 9 hours previous night. She appears somewhat obsessive, particular about things, wanting them exactly the way she does. Her oxygen was disconnected. She was quite upset about this, nursing staff did replace it per OSMANI Morin. REVIEW OF SYSTEMS: Ambulation impaired, in wheelchair, shortness of breath. No CV, GI, , eye system symptoms on review. MENTAL STATUS EXAM: Reasonably oriented. Speech has some latency, coherent. Abstraction fair, computation impaired, language function intact. Mood and affect somewhat labile, anxious. LABORATORY DATA: Reviewed. IMPRESSION: Unchanged from initial note. PLAN: No change from initial note. She remains on oxygen 3 L at night, 2 liters during the day. TERRENCE DANIEL MD DR: GILDA/macario JOB#: [id number] / [id number]
--- NOTE | 2020-01-11 09:01 | PN ---
DATE: 01/09/2020 PSYCHIATRIC PROGRESS NOTE This late entry January 08 covers elements not covered in my initial note. SUBJECTIVE: I met with the patient evening of January 08 and staffed at treatment team meeting earlier in the day and snf staff attended this conference. Reviewed the patient's history, diagnosis, current medications, discharge plans. Appetite 75%, sleeping average 7 hours, compliant with medications, yelling at staff at times, urinated on the floor. She does well when she is given a ken[place] to hear music and play games on. REVIEW OF SYSTEMS: Ambulation impaired, in wheelchair. Vague somatic symptoms. No CV, , pulmonary, eye system symptoms on review. MENTAL STATUS EXAM: Oriented to herself and situation. Speech is coherent. Abstraction fair. Computation impaired. Language function intact. Mood and affect remain somewhat labile. LABORATORY DATA: Reviewed. IMPRESSION: Unchanged from initial note. PLAN: No change from initial note. Depakote is being adjusted since the last level was subtherapeutic at 22 on January 07. Repeat labs on January 11. Rest unchanged from initial note. MAN Dilan DANIEL MD DR: GILDA/macario JOB#: [id number] / [id number]
[2020-01-11] MEDS: diphenhydrAMINE HCL 25 MG CAPSULE PO PRN (15:39)
[2020-01-11 16:30] VITALS: BP 127/82
[2020-01-11] MEDS: LATANOPROST 0.005% OPHTH SOLUTION 2.5ML BOTTLE. OU SCH (19:20)
[2020-01-11] MEDS: QUEtiapine 100 MG TABLET. PO SCH (19:21)
[2020-01-11] MEDS: MIRTAZAPINE ODT 30 MG TAB.RAPDIS. PO SCH (19:22)
[2020-01-11] MEDS: DULoxetine HCL 60 MG CAPSULE.DR PO SCH (19:22)
--- NOTE | 2020-01-11 21:49 | PN ---
DATE: 01/11/2020 SUBJECTIVE: The patient was seen today, met with the staff, chart reviewed and also covering for Dr. Rico. The patient has morbid obesity, having problems with ADLs. The patient has a tendency to become aggressive towards staff and also exhibiting significant mood swings and also exhibiting obsessive compulsive behaviors. The patient has difficulty walking and uses wheelchair. The patient is constantly having shortness of breath. OBSERVATION: Temperature 97.5, blood pressure 128/81, pulse 72, respirations 12, O2 sat 96%. Slept about 7 hours last night. The patient's appetite is fair. MEDICATIONS: The patient's current medications include Depakote 500 mg twice a day, Seroquel 200 mg at night, Cogentin 0.5 mg b.i.d., Topamax 150 mg b.i.d., mirtazapine 30 mg at night, Cymbalta 60 mg at night. The patient's lab reviewed. The patient denies of any side effects to medications. OBSERVATION: VITAL SIGNS: Temperature 97.5, blood pressure 128/81, pulse 72, respirations 20, O2 sat 96%. ASSESSMENT: Schizoaffective disorder, bipolar type, generalized anxiety disorder. PLAN: Continue with the treatment. LENGTH OF STAY: 5-7 days. TUYET PETTY MD DR: LATESHA/macario JOB#: [id number] / [id number]
[2020-01-12] MEDS: LEVOTHYROXINE 50 MCG TABLET PO SCH (05:25)
[2020-01-12 05:30] VITALS: BP 154/83
[2020-01-12 07:39] LABS: BASO % 1 % (0-3); EOS # 0.3 x10^3/uL (0.0-0.7); EOS % 6 % (0-3); HEMATOCRIT 40.5 % (36.0-47.0); HEMOGLOBIN 13.4 g/dL (12.0-15.5); LYMPH # 0.8 x10^3/uL (1.0-4.8); LYMPH % 18 % (24-48); MEAN CORPUSCULAR HEMOGLOBIN 31 pg (25-35); MEAN CORPUSCULAR HGB CONC 33 g/dL (31-37); MEAN CORPUSCULAR VOLUME 93 fL (79-100); MONO # 0.4 x10^3/uL (0.0-1.1); MONO % 9 % (0-9); NEUT % 67 % (31-73); PLATELET COUNT 147 x10^3/uL (140-400); RED BLOOD COUNT 4.37 x10^6/uL (3.50-5.40); RED CELL DISTRIBUTION WIDTH 14.5 % (11.5-14.5); WHITE BLOOD COUNT 4.4 x10^3/uL (4.0-11.0)
[2020-01-12 07:46] LABS: ALBUMIN 2.9 g/dL (3.4-5.0); ALBUMIN/GLOBULIN RATIO 0.7 (1.0-1.7); CALCIUM 8.3 mg/dL (8.5-10.1); CREATININE 0.8 mg/dL (0.6-1.0); GFR 71.5; TOTAL BILIRUBIN 0.2 mg/dL (0.2-1.0); TOTAL PROTEIN 6.8 g/dL (6.4-8.2)
[2020-01-12 08:12] LABS: VAL ACID 46 mcg/mL (50-100)
[2020-01-12] MEDS: POLYVINYL ALCOHOL/POVIDONE/PF OPHTH SOLUTION DROPERETTE. OU SCH ×3 (09:06→20:23)
[2020-01-12] MEDS: LATANOPROST 0.005% OPHTH SOLUTION 2.5ML BOTTLE. OU SCH ×2 (09:06→13:10)
[2020-01-12] MEDS: POTASSIUM CHLORIDE 20 MEQ TABLET.ER. PO SCH ×3 (09:07→20:26)
[2020-01-12] MEDS: DIVALPROEX 125 MG CAP.SPRINK PO SCH ×2 (09:07→20:23)
[2020-01-12] MEDS: ACETAMINOPHEN 325 MG TABLET PO SCH ×3 (09:07→20:25)
[2020-01-12] MEDS: POLYVINYL ALCOHOL 1.4% OPHTH SOLUTION 15ML BOTTLE. OU SCH ×3 (09:07→20:23)
[2020-01-12] MEDS: SPIRONOLACTONE 25 MG TABLET PO SCH (09:07)
[2020-01-12] MEDS: BENZTROPINE MESYLATE 1 MG TABLET PO SCH ×2 (09:08→20:24)
[2020-01-12] MEDS: LUBIPROSTONE 24 MCG CAPSULE PO SCH ×2 (09:08→17:17)
[2020-01-12] MEDS: ASPIRIN ENTERIC COATED 81 MG TABLET.DR. PO SCH (09:08)
[2020-01-12] MEDS: TOPIRAMATE 100 MG TABLET. PO SCH ×2 (09:08→20:24)
[2020-01-12] MEDS: CETIRIZINE HCL 10 MG TABLET PO SCH (09:08)
[2020-01-12 15:40] VITALS: BP 131/74
[2020-01-12] MEDS: MIRTAZAPINE ODT 30 MG TAB.RAPDIS. PO SCH (20:23)
[2020-01-12] MEDS: DULoxetine HCL 60 MG CAPSULE.DR PO SCH (20:27)
[2020-01-12] MEDS: QUEtiapine 100 MG TABLET. PO SCH (20:27)
--- NOTE | 2020-01-12 23:47 | PN ---
DATE: 01/12/2020 SUBJECTIVE: The patient was seen today, met with the staff, chart reviewed, also covering for Dr. Rico. Staff reports no major behavior problems. She is cooperative with the staff and compliant with the medications and assessments. OBSERVATION: VITAL SIGNS: Temperature 97.6, blood pressure 154/83, pulse 77, respirations 20, O2 sat 98%. GENERAL: Slept about 6 hours last night. The patient denies of any physical complaints. The patient's appetite improved. The patient denies of any side effects to the medications. CURRENT MEDICATIONS: Include Depakote 500 mg b.i.d. p.o., Seroquel ____ mg at night, Cogentin 0.5 mg b.i.d., Topamax 100 mg b.i.d., mirtazapine 30 mg at night and Cymbalta 60 mg at night. ASSESSMENT: 1. Schizoaffective disorder, bipolar type. 2. Generalized anxiety disorder. PLAN: Continue with the treatment. LENGTH OF STAY: 5-7 days. TUYET PETTY MD DR: LATESHA/macario JOB#: [id number] / [id number]
[2020-01-13] MEDS: LEVOTHYROXINE 50 MCG TABLET PO SCH (05:22)
[2020-01-13 06:00] VITALS: BP 147/78
[2020-01-13] MEDS: LUBIPROSTONE 24 MCG CAPSULE PO SCH ×2 (08:56→16:43)
[2020-01-13] MEDS: POLYVINYL ALCOHOL/POVIDONE/PF OPHTH SOLUTION DROPERETTE. OU SCH ×3 (08:56→20:07)
[2020-01-13] MEDS: DIVALPROEX 125 MG CAP.SPRINK PO SCH ×2 (08:56→20:08)
[2020-01-13] MEDS: ASPIRIN ENTERIC COATED 81 MG TABLET.DR. PO SCH (08:57)
[2020-01-13] MEDS: POLYVINYL ALCOHOL 1.4% OPHTH SOLUTION 15ML BOTTLE. OU SCH ×3 (08:57→20:07)
[2020-01-13] MEDS: TOPIRAMATE 100 MG TABLET. PO SCH ×2 (08:57→20:10)
[2020-01-13] MEDS: BENZTROPINE MESYLATE 1 MG TABLET PO SCH ×2 (08:57→20:11)
[2020-01-13] MEDS: SPIRONOLACTONE 25 MG TABLET PO SCH (08:57)
[2020-01-13] MEDS: LATANOPROST 0.005% OPHTH SOLUTION 2.5ML BOTTLE. OU SCH (08:57)
[2020-01-13] MEDS: POTASSIUM CHLORIDE 20 MEQ TABLET.ER. PO SCH ×3 (08:57→20:09)
[2020-01-13] MEDS: ACETAMINOPHEN 325 MG TABLET PO SCH ×3 (08:57→20:10)
[2020-01-13] MEDS: CETIRIZINE HCL 10 MG TABLET PO SCH (08:57)
[2020-01-13 16:38] VITALS: BP 149/82
[2020-01-13] MEDS: DULoxetine HCL 60 MG CAPSULE.DR PO SCH (20:09)
[2020-01-13] MEDS: MIRTAZAPINE ODT 30 MG TAB.RAPDIS. PO SCH (20:09)
[2020-01-13] MEDS: QUEtiapine 100 MG TABLET. PO SCH (20:11)
--- NOTE | 2020-01-13 21:54 | PDOC ---
Exam Note: David Note: Please also refer to the separate dictated note~for this date of service dictated separately.~Patient seen individually. Discussed the patient with Nursing staff reviewed the chart.~Reviewed interim history and current functioning. Reviewed vital signs,~Labs/ Radiology~and current medications noted below. Continue current treatment with the changes noted in the dictated addendum note Assessment: Vital Signs/I&O: Vital Signs Date Time Temp Pulse Resp B/P (MAP) Pulse Ox O2 Delivery O2 Flow Rate FiO2 01/13/20 16:38 98.1 79 20 149/82 (104) 98 01/12/20 05:30 Room Air 01/11/20 16:30 2.0 I & O 01/12/20 01/12/20 01/13/20 15:00 23:00 07:00 Intake Total 720 ml 480 ml 120 ml Balance 720 ml 480 ml 120 ml Current Medications: Meds: Current Medications Medications (Trade) Dose Ordered Sig/Carlos Route PRN Reason Start Time Stop Time Status Last Admin Dose Admin Divalproex Sodium (Depakote Sprinkles) 750 mg QHS PO 01/13/20 21:00 01/13/20 20:08 I have reviewed the current psychotropics carefully including drug interactions. Risk benefit ratio favors no change other than as noted in my dictated progress note. Diagnosis: Problems: (1) Schizoaffective disorder, bipolar type (2) Hypokalemia (3) Anxiety disorder (4) Schizoaffective disorder, chronic condition with acute exacerbation (5) Impulse control disorder TERRENCE DANIEL MD Jan 13, 2020 21:54
[2020-01-14] MEDS: LEVOTHYROXINE 50 MCG TABLET PO SCH (05:46)
[2020-01-14 05:47] VITALS: BP 138/83
[2020-01-14] MEDS: ACETAMINOPHEN 325 MG TABLET PO SCH ×3 (09:56→20:40)
[2020-01-14] MEDS: POLYVINYL ALCOHOL 1.4% OPHTH SOLUTION 15ML BOTTLE. OU SCH ×3 (09:56→20:41)
[2020-01-14] MEDS: LUBIPROSTONE 24 MCG CAPSULE PO SCH ×2 (09:57→17:34)
[2020-01-14] MEDS: TOPIRAMATE 100 MG TABLET. PO SCH ×2 (09:57→20:41)
[2020-01-14] MEDS: ASPIRIN ENTERIC COATED 81 MG TABLET.DR. PO SCH (09:57)
[2020-01-14] MEDS: BENZTROPINE MESYLATE 1 MG TABLET PO SCH ×2 (09:58→20:42)
[2020-01-14] MEDS: POTASSIUM CHLORIDE 20 MEQ TABLET.ER. PO SCH ×3 (09:58→20:41)
[2020-01-14] MEDS: SPIRONOLACTONE 25 MG TABLET PO SCH (09:59)
[2020-01-14] MEDS: POLYVINYL ALCOHOL/POVIDONE/PF OPHTH SOLUTION DROPERETTE. OU SCH ×3 (09:59→20:42)
[2020-01-14] MEDS: CETIRIZINE HCL 10 MG TABLET PO SCH (09:59)
[2020-01-14] MEDS: DIVALPROEX 125 MG CAP.SPRINK PO SCH ×2 (10:02→20:40)
[2020-01-14 16:04] VITALS: BP 163/86
[2020-01-14] MEDS: DULoxetine HCL 60 MG CAPSULE.DR PO SCH (20:41)
[2020-01-14] MEDS: QUEtiapine 100 MG TABLET. PO SCH (20:41)
[2020-01-14] MEDS: LATANOPROST 0.005% OPHTH SOLUTION 2.5ML BOTTLE. OU SCH (20:41)
[2020-01-14] MEDS: MIRTAZAPINE ODT 30 MG TAB.RAPDIS. PO SCH (20:42)
--- NOTE | 2020-01-14 21:47 | PDOC ---
Exam Note: David Note: Please also refer to the separate dictated note~for this date of service dictated separately.~Patient seen individually. Discussed the patient with Nursing staff reviewed the chart.~Reviewed interim history and current functioning. Reviewed vital signs,~Labs/ Radiology~and current medications noted below. Continue current treatment with the changes noted in the dictated addendum note Assessment: Vital Signs/I&O: Vital Signs Date Time Temp Pulse Resp B/P (MAP) Pulse Ox O2 Delivery O2 Flow Rate FiO2 01/14/20 16:04 98.2 82 16 163/86 (111) 100 2.0 01/14/20 05:47 Nasal Cannula I & O 01/13/20 01/13/20 01/14/20 15:00 23:00 07:00 Intake Total 840 ml 220 ml Balance 840 ml 220 ml Current Medications: Meds: Current Medications Medications (Trade) Dose Ordered Sig/Carlos Route PRN Reason Start Time Stop Time Status Last Admin Dose Admin Divalproex Sodium (Depakote Sprinkles) 500 mg DAILY PO 01/14/20 09:00 01/14/20 10:02 I have reviewed the current psychotropics carefully including drug interactions. Risk benefit ratio favors no change other than as noted in my dictated progress note. Diagnosis: Problems: (1) Schizoaffective disorder, bipolar type (2) Medical clearance for psychiatric admission (3) Anxiety disorder (4) Schizoaffective disorder, chronic condition with acute exacerbation (5) Impulse control disorder TERRENCE DANIEL MD Jan 14, 2020 21:47
[2020-01-15] MEDS: LEVOTHYROXINE 50 MCG TABLET PO SCH (04:59)
[2020-01-15 05:54] VITALS: BP 135/83
[2020-01-15] MEDS: DIVALPROEX 125 MG CAP.SPRINK PO SCH ×2 (08:27→20:25)
[2020-01-15] MEDS: ASPIRIN ENTERIC COATED 81 MG TABLET.DR. PO SCH (08:27)
[2020-01-15] MEDS: ACETAMINOPHEN 325 MG TABLET PO SCH ×3 (08:28→20:26)
[2020-01-15] MEDS: TOPIRAMATE 100 MG TABLET. PO SCH ×2 (08:28→20:28)
[2020-01-15] MEDS: POTASSIUM CHLORIDE 20 MEQ TABLET.ER. PO SCH ×3 (08:28→20:25)
[2020-01-15] MEDS: POLYVINYL ALCOHOL 1.4% OPHTH SOLUTION 15ML BOTTLE. OU SCH ×3 (08:29→20:27)
[2020-01-15] MEDS: SPIRONOLACTONE 25 MG TABLET PO SCH (08:29)
[2020-01-15] MEDS: POLYVINYL ALCOHOL/POVIDONE/PF OPHTH SOLUTION DROPERETTE. OU SCH ×3 (08:29→20:28)
[2020-01-15] MEDS: LUBIPROSTONE 24 MCG CAPSULE PO SCH ×2 (08:29→17:40)
[2020-01-15] MEDS: metOLazone 5 MG TABLET PO SCH (08:30)
[2020-01-15] MEDS: CETIRIZINE HCL 10 MG TABLET PO SCH (08:30)
[2020-01-15] MEDS: BENZTROPINE MESYLATE 1 MG TABLET PO SCH ×2 (08:30→20:26)
--- NOTE | 2020-01-15 09:45 | PN ---
DATE: 01/13/2020 PSYCHIATRIC PROGRESS NOTE This late entry 01/13/2020 covers elements not covered in my initial note. SUBJECTIVE: I met with the patient evening of 01/13/2020 and reviewed information from Dr. Camacho who covered for me over the past couple of days. Previous evening, the patient was quite agitated in the shower, was in a onesie. Continues to have mood lability, some paranoia and anxiety. REVIEW OF SYSTEMS: Ambulation impaired, in wheelchair. No CV, , pulmonary, eye system symptoms on review. She has vague somatic symptoms. MENTAL STATUS EXAM: Oriented to herself and situation. Speech coherent, can be pressured at times. Abstraction fair, computation impaired, language function intact, attention span short. Mood and affect remains somewhat grandiose, labile. LABORATORY DATA: Reviewed. IMPRESSION: Schizoaffective disorder, bipolar type, mixed with psychotic features. Rest unchanged anxiety disorder, unspecified. PLAN: Valproic acid level is 46 on Depakote 500 b.i.d. We will increase to 500 a.m., 750 at bedtime. Check CBC, CMP, valproic acid level in 3 days. Continue rest of the psychotropics unchanged. TERRENCE DANIEL MD DR: GILDA/macario JOB#: [id number] / [id number]
[2020-01-15] MEDS: diphenhydrAMINE HCL 25 MG CAPSULE PO PRN ×2 (13:41→20:34)
[2020-01-15 16:38] VITALS: BP 144/82
--- NOTE | 2020-01-15 19:54 | PN ---
DATE: 01/14/2020 PSYCHIATRIC PROGRESS NOTE This late entry January 13, covers elements not covered in my initial note. SUBJECTIVE: I met with the patient evening of January 13. Per OSMANI De La Rosa, the patient slept 9 hours previous night. She has been paranoid, delusional, believes staff, have been dragging her around, refuses showers. REVIEW OF SYSTEMS: Ambulation impaired, in wheelchair. No CV, , pulmonary, eye system symptoms on review. She has vague somatic symptoms. MENTAL STATUS EXAM: Oriented to herself, situation. Speech coherent, can be pressured at times. Abstraction fair, computation impaired, language function intact, attention span short. Mood and affect remain somewhat grandiose, labile. LABORATORY DATA: Reviewed. IMPRESSION: Schizoaffective disorder, bipolar type, mixed with psychotic features versus bipolar disorder, mixed with psychotic features. Rest unchanged. PLAN: Continue psychotropics from initial note. Adjust the Seroquel further as clinically indicated. Depakote is being adjusted. Repeat valproic acid level to reach therapeutic level. MAN Dilan DANIEL MD DR: GILDA/macario JOB#: [id number] / [id number]
[2020-01-15] MEDS: LATANOPROST 0.005% OPHTH SOLUTION 2.5ML BOTTLE. OU SCH (20:25)
[2020-01-15] MEDS: MIRTAZAPINE ODT 30 MG TAB.RAPDIS. PO SCH (20:26)
[2020-01-15] MEDS: DULoxetine HCL 30 MG CAPSULE.DR PO SCH (20:26)
[2020-01-15] MEDS: QUEtiapine 100 MG TABLET. PO SCH (20:27)
[2020-01-15] MEDS: NYSTATIN TOPICAL POWDER 15GM BOTTLE. TP SCH (20:28)
--- NOTE | 2020-01-15 22:07 | PDOC ---
Exam Note: David Note: Please also refer to the separate dictated note~for this date of service dictated separately.~Patient seen individually. Discussed the patient with Nursing staff reviewed the chart.~Reviewed interim history and current functioning. Reviewed vital signs,~Labs/ Radiology~and current medications noted below. Continue current treatment with the changes noted in the dictated addendum note Assessment: Vital Signs/I&O: Vital Signs Date Time Temp Pulse Resp B/P (MAP) Pulse Ox O2 Delivery O2 Flow Rate FiO2 01/15/20 16:38 98.1 93 16 144/82 (102) 98 2.0 01/14/20 05:47 Nasal Cannula I & O 01/14/20 01/14/20 01/15/20 15:00 23:00 07:00 Intake Total 1080 ml 100 ml Balance 1080 ml 100 ml Current Medications: Meds: Current Medications Medications (Trade) Dose Ordered Sig/Carlos Route PRN Reason Start Time Stop Time Status Last Admin Dose Admin Nystatin (Nystop) 1 lala BID TP 01/15/20 21:00 01/15/20 20:28 Duloxetine HCl (Cymbalta) 30 mg QHS PO 01/15/20 21:00 01/15/20 20:26 Quetiapine Fumarate (SEROquel) 250 mg QHS PO 01/15/20 21:00 01/15/20 20:27 I have reviewed the current psychotropics carefully including drug interactions. Risk benefit ratio favors no change other than as noted in my dictated progress note. Diagnosis: Problems: (1) Schizoaffective disorder, bipolar type (2) Medical clearance for psychiatric admission (3) Anxiety disorder (4) Schizoaffective disorder, chronic condition with acute exacerbation (5) Impulse control disorder TERRENCE DANIEL MD Jan 15, 2020 22:07
[2020-01-16] MEDS: LEVOTHYROXINE 50 MCG TABLET PO SCH (04:55)
[2020-01-16 05:54] VITALS: BP 145/83
[2020-01-16] MEDS: DIVALPROEX 125 MG CAP.SPRINK PO SCH ×2 (09:37→20:46)
[2020-01-16] MEDS: ASPIRIN ENTERIC COATED 81 MG TABLET.DR. PO SCH (09:38)
[2020-01-16] MEDS: LUBIPROSTONE 24 MCG CAPSULE PO SCH ×2 (09:38→17:20)
[2020-01-16] MEDS: BENZTROPINE MESYLATE 1 MG TABLET PO SCH ×2 (09:38→20:45)
[2020-01-16] MEDS: POLYVINYL ALCOHOL/POVIDONE/PF OPHTH SOLUTION DROPERETTE. OU SCH ×3 (09:39→20:44)
[2020-01-16] MEDS: TOPIRAMATE 100 MG TABLET. PO SCH ×2 (09:39→20:46)
[2020-01-16] MEDS: CETIRIZINE HCL 10 MG TABLET PO SCH (09:40)
[2020-01-16] MEDS: ACETAMINOPHEN 325 MG TABLET PO SCH ×3 (09:40→20:45)
[2020-01-16] MEDS: POLYVINYL ALCOHOL 1.4% OPHTH SOLUTION 15ML BOTTLE. OU SCH ×3 (09:41→20:44)
[2020-01-16] MEDS: NYSTATIN TOPICAL POWDER 15GM BOTTLE. TP SCH ×2 (09:41→20:44)
[2020-01-16] MEDS: SPIRONOLACTONE 25 MG TABLET PO SCH (09:41)
[2020-01-16] MEDS: POTASSIUM CHLORIDE 20 MEQ TABLET.ER. PO SCH ×3 (09:41→20:45)
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
[2020-01-16 16:03] VITALS: BP 166/76
[2020-01-16] MEDS: LATANOPROST 0.005% OPHTH SOLUTION 2.5ML BOTTLE. OU SCH (20:44)
[2020-01-16] MEDS: MIRTAZAPINE ODT 30 MG TAB.RAPDIS. PO SCH (20:46)
[2020-01-16] MEDS: QUEtiapine 100 MG TABLET. PO SCH (20:46)
[2020-01-16] MEDS: DULoxetine HCL 30 MG CAPSULE.DR PO SCH (20:46)
--- NOTE | 2020-01-16 23:05 | PDOC ---
Exam Note: David Note: Please also refer to the separate dictated note~for this date of service dictated separately.~Patient seen individually. Discussed the patient with Nursing staff reviewed the chart.~Reviewed interim history and current functioning. Reviewed vital signs,~Labs/ Radiology~and current medications noted below. Continue current treatment with the changes noted in the dictated addendum note Assessment: Vital Signs/I&O: Vital Signs Date Time Temp Pulse Resp B/P (MAP) Pulse Ox O2 Delivery O2 Flow Rate FiO2 01/16/20 16:03 98.4 76 18 166/76 (106) 97 01/15/20 16:38 2.0 01/14/20 05:47 Nasal Cannula I & O0 01/15/20 01/15/20 01/16/20 15:00 23:00 07:00 Intake Total 840 ml 700 ml Balance 840 ml 700 ml Current Medications: I have reviewed the current psychotropics carefully including drug interactions. Risk benefit ratio favors no change other than as noted in my dictated progress note. Diagnosis: Problems: (1) Schizoaffective disorder, bipolar type (2) Medical clearance for psychiatric admission (3) Anxiety disorder (4) Schizoaffective disorder, chronic condition with acute exacerbation (5) Impulse control disorder TERRENCE DANIEL MD Jan 16, 2020 23:05
[2020-01-17] MEDS: LEVOTHYROXINE 50 MCG TABLET PO SCH (05:14)
[2020-01-17 06:27] VITALS: BP 149/81
[2020-01-17 07:00] LABS: BASO % 1 % (0-3); EOS # 0.2 x10^3/uL (0.0-0.7); EOS % 3 % (0-3); HEMATOCRIT 39.7 % (36.0-47.0); LYMPH # 0.9 x10^3/uL (1.0-4.8); LYMPH % 12 % (24-48); MEAN CORPUSCULAR HEMOGLOBIN 31 pg (25-35); MEAN CORPUSCULAR HGB CONC 33 g/dL (31-37); MEAN CORPUSCULAR VOLUME 93 fL (79-100); MONO # 0.5 x10^3/uL (0.0-1.1); MONO % 7 % (0-9); NEUT # 5.8 x10^3uL (1.8-7.7); NEUT % 77 % (31-73); PLATELET COUNT 133 x10^3/uL (140-400); RED BLOOD COUNT 4.27 x10^6/uL (3.50-5.40); RED CELL DISTRIBUTION WIDTH 14.9 % (11.5-14.5); WHITE BLOOD COUNT 7.5 x10^3/uL (4.0-11.0)
[2020-01-17 07:13] LABS: ALBUMIN 2.8 g/dL (3.4-5.0); ALBUMIN/GLOBULIN RATIO 0.7 (1.0-1.7); ALK PHOS 67 U/L (46-116); ALT (SGPT) 16 U/L (14-59); ANION GAP 2 (6-14); AST (SGOT) 15 U/L (15-37); BLOOD UREA NITROGEN 14 mg/dL (7-20); BUN/CREATININE RATIO 18 (6-20); CARBON DIOXIDE 36 mmol/L (21-32); CHLORIDE 98 mmol/L (98-107); CREATININE 0.8 mg/dL (0.6-1.0); GFR 71.5; GLUCOSE 91 mg/dL (70-99); POTASSIUM 3.4 mmol/L (3.5-5.1); SODIUM 136 mmol/L (136-145); TOTAL BILIRUBIN 0.3 mg/dL (0.2-1.0); TOTAL PROTEIN 6.7 g/dL (6.4-8.2)
[2020-01-17 07:14] LABS: VAL ACID 58 mcg/mL (50-100)
[2020-01-17] MEDS: DIVALPROEX 125 MG CAP.SPRINK PO SCH ×2 (08:22→20:51)
[2020-01-17] MEDS: NYSTATIN TOPICAL POWDER 15GM BOTTLE. TP SCH ×2 (08:22→20:47)
[2020-01-17] MEDS: TOPIRAMATE 100 MG TABLET. PO SCH ×2 (08:23→20:47)
[2020-01-17] MEDS: LUBIPROSTONE 24 MCG CAPSULE PO SCH ×2 (08:23→17:07)
[2020-01-17] MEDS: CETIRIZINE HCL 10 MG TABLET PO SCH (08:23)
[2020-01-17] MEDS: POTASSIUM CHLORIDE 20 MEQ TABLET.ER. PO SCH ×3 (08:23→20:49)
[2020-01-17] MEDS: ACETAMINOPHEN 325 MG TABLET PO SCH ×3 (08:24→20:49)
[2020-01-17] MEDS: ASPIRIN ENTERIC COATED 81 MG TABLET.DR. PO SCH (08:24)
[2020-01-17] MEDS: SPIRONOLACTONE 25 MG TABLET PO SCH (08:24)
[2020-01-17] MEDS: POLYVINYL ALCOHOL/POVIDONE/PF OPHTH SOLUTION DROPERETTE. OU SCH ×3 (08:24→20:47)
[2020-01-17] MEDS: BENZTROPINE MESYLATE 1 MG TABLET PO SCH ×2 (08:24→20:50)
[2020-01-17] MEDS: POLYVINYL ALCOHOL 1.4% OPHTH SOLUTION 15ML BOTTLE. OU SCH ×3 (08:25→20:47)
[2020-01-17] MEDS: diphenhydrAMINE HCL 25 MG CAPSULE PO PRN (11:14)
--- NOTE | 2020-01-17 11:44 | PN ---
DATE: 01/15/2020 PSYCHIATRIC PROGRESS NOTE This late entry 01/15/2020 covers elements not covered in my initial note. SUBJECTIVE: I met with the patient evening of 01/15/2020. Per OSMANI De La Rosa, the patient slept 5-1/4 hours previous night. She has been somewhat anxious, restless, believes her legs are going to fall off, being somewhat sarcastic with nursing staff, wanting Benadryl to help with this. REVIEW OF SYSTEMS: Ambulation impaired, in wheelchair. No CV, , pulmonary, eye system symptoms on review. MENTAL STATUS EXAM: Oriented to herself and situation. Speech is coherent, abstraction fair, computation impaired, language function intact. Mood and affect withdrawn. LABORATORY DATA: Reviewed. IMPRESSION: Schizoaffective disorder, bipolar type, mixed with psychotic features. Rest unchanged. PLAN: The Cymbalta 60 mg a day could be worsening her hypomanic symptoms, we will reduce to 30 mg a day, increase Seroquel to 250 mg at bedtime. Rest unchanged for now. TERRENCE DANIEL MD DR: GILDA/macario JOB#: [id number] / [id number]
--- NOTE | 2020-01-17 11:47 | PN ---
DATE: 01/16/2020 PSYCHIATRIC PROGRESS NOTE This late entry January 15 covers elements not covered in my initial note. SUBJECTIVE: I met with the patient evening of January 15. The patient was also staffed at a treatment team meeting with the entire team in the morning with Reddy, Social Service staff from [facility] attending the conference. Per OSMANI De La Rosa, the patient is sleeping average 6-1/4 hours, slept 8 hours previous night. Appetite 100%, somewhat sarcastic, argumentative, but better on January 15. REVIEW OF SYSTEMS: Ambulation impaired, in wheelchair. No CV, , pulmonary, eye system symptoms on review. MENTAL STATUS EXAM: Oriented reasonably. Speech has some latency, coherent. Abstraction fair. Computation impaired. Language function intact. Attention span short. Mood and affect somewhat labile. LABORATORY DATA: Reviewed. IMPRESSION: Unchanged from initial note. PLAN: No change from initial note. MAN Dilan DANIEL MD DR: GILDA/macario JOB#: [id number] / [id number]
[2020-01-17 16:39] VITALS: BP 154/78
[2020-01-17] MEDS: LATANOPROST 0.005% OPHTH SOLUTION 2.5ML BOTTLE. OU SCH (20:47)
[2020-01-17] MEDS: MIRTAZAPINE ODT 30 MG TAB.RAPDIS. PO SCH (20:50)
[2020-01-17] MEDS: DULoxetine HCL 30 MG CAPSULE.DR PO SCH (20:50)
[2020-01-17] MEDS: QUEtiapine 100 MG TABLET. PO SCH (20:51)
--- NOTE | 2020-01-17 23:02 | PDOC ---
Exam Note: David Note: Please also refer to the separate dictated note~for this date of service dictated separately. Discussed the patient with Nursing staff reviewed the chart.~Reviewed interim history and current functioning. Reviewed vital signs,~Labs/ Radiology~and current medications noted below. Continue current treatment with the changes noted in the dictated addendum note Assessment: Vital Signs/I&O: Vital Signs Date Time Temp Pulse Resp B/P (MAP) Pulse Ox O2 Delivery O2 Flow Rate FiO2 01/17/20 16:39 99.1 92 18 154/78 (103) 91 01/17/20 06:27 Nasal Cannula 2.0 I & O 01/16/20 01/16/20 01/17/20 15:00 23:00 07:00 Intake Total 840 ml 720 ml Balance 840 ml 720 ml Labs: Laboratory Tests Test 01/17/20 06:49 White Blood Count 7.5 x10^3/uL (4.0-11.0) Red Blood Count 4.27 x10^6/uL (3.50-5.40) Hemoglobin 13.0 g/dL (12.0-15.5) Hematocrit 39.7 % (36.0-47.0) Mean Corpuscular Volume 93 fL (79-100) Mean Corpuscular Hemoglobin 31 pg (25-35) Mean Corpuscular Hemoglobin Concent 33 g/dL (31-37) Red Cell Distribution Width 14.9 % (11.5-14.5) H Platelet Count 133 x10^3/uL (140-400) L Neutrophils (%) (Auto) 77 % (31-73) H Lymphocytes (%) (Auto) 12 % (24-48) L Monocytes (%) (Auto) 7 % (0-9) Eosinophils (%) (Auto) 3 % (0-3) Basophils (%) (Auto) 1 % (0-3) Neutrophils # (Auto) 5.8 x10^3uL (1.8-7.7) Lymphocytes # (Auto) 0.9 x10^3/uL (1.0-4.8) L Monocytes # (Auto) 0.5 x10^3/uL (0.0-1.1) Eosinophils # (Auto) 0.2 x10^3/uL (0.0-0.7) Basophils # (Auto) 0.0 x10^3/uL (0.0-0.2) Sodium Level 136 mmol/L (136-145) Potassium Level 3.4 mmol/L (3.5-5.1) L Chloride Level 98 mmol/L (98-107) Carbon Dioxide Level 36 mmol/L (21-32) H Anion Gap 2 (6-14) L Blood Urea Nitrogen 14 mg/dL (7-20) Creatinine 0.8 mg/dL (0.6-1.0) Estimated GFR (Cockcroft-Gault) 71.5 BUN/Creatinine Ratio 18 (6-20) Glucose Level 91 mg/dL (70-99) Calcium Level 8.0 mg/dL (8.5-10.1) L Total Bilirubin 0.3 mg/dL (0.2-1.0) Aspartate Amino Transferase (AST) 15 U/L (15-37) Alanine Aminotransferase (ALT) 16 U/L (14-59) Alkaline Phosphatase 67 U/L (46-116) Ammonia 10 mcmol/L (11-34) L Total Protein 6.7 g/dL (6.4-8.2) Albumin 2.8 g/dL (3.4-5.0) L Albumin/Globulin Ratio 0.7 (1.0-1.7) L Valproic Acid Level 58 mcg/mL (50-100) Valproic Acid Last Dose Date 01/16/20 Valproic Acid Last Dose Time 2100 Current Medications: I have reviewed the current psychotropics carefully including drug interactions. Risk benefit ratio favors no change other than as noted in my dictated progress note. Diagnosis: Problems: (1) Schizoaffective disorder, bipolar type (2) Medical clearance for psychiatric admission (3) Anxiety disorder (4) Schizoaffective disorder, chronic condition with acute exacerbation (5) Impulse control disorder TERRENCE DANIEL MD Jan 17, 2020 23:02
[2020-01-18] MEDS: LEVOTHYROXINE 50 MCG TABLET PO SCH (05:57)
[2020-01-18 06:57] VITALS: BP 117/72
[2020-01-18] MEDS ORDERED: POTASSIUM CHLORIDE 20 MEQ TABLET.ER. PO ONE (08:30)
[2020-01-18] MEDS: LUBIPROSTONE 24 MCG CAPSULE PO SCH ×2 (08:40→17:00)
[2020-01-18] MEDS: CETIRIZINE HCL 10 MG TABLET PO SCH (08:40)
[2020-01-18] MEDS: ASPIRIN ENTERIC COATED 81 MG TABLET.DR. PO SCH (08:40)
[2020-01-18] MEDS: DIVALPROEX 125 MG CAP.SPRINK PO SCH ×2 (08:41→20:59)
[2020-01-18] MEDS: ACETAMINOPHEN 325 MG TABLET PO SCH ×3 (08:41→20:58)
[2020-01-18] MEDS: BENZTROPINE MESYLATE 1 MG TABLET PO SCH ×2 (08:41→20:55)
[2020-01-18] MEDS: SPIRONOLACTONE 25 MG TABLET PO SCH (08:41)
[2020-01-18] MEDS: POTASSIUM CHLORIDE 20 MEQ TABLET.ER. PO SCH ×3 (08:42→20:56)
[2020-01-18] MEDS: NYSTATIN TOPICAL POWDER 15GM BOTTLE. TP SCH ×2 (08:43→20:53)
[2020-01-18] MEDS: POLYVINYL ALCOHOL 1.4% OPHTH SOLUTION 15ML BOTTLE. OU SCH ×3 (08:43→20:53)
[2020-01-18] MEDS: POLYVINYL ALCOHOL/POVIDONE/PF OPHTH SOLUTION DROPERETTE. OU SCH ×3 (08:43→20:54)
[2020-01-18] MEDS: TOPIRAMATE 100 MG TABLET. PO SCH ×2 (08:43→20:58)
[2020-01-18] MEDS ORDERED: ONDANSETRON ODT 4 MG TAB.RAPDIS PO PRN (15:45)
[2020-01-18 16:09] VITALS: BP 113/84
[2020-01-18] MEDS: diphenhydrAMINE HCL 25 MG CAPSULE PO PRN (17:01)
[2020-01-18 18:21] LABS: INFLUENZA A PATIENT NEGATIVE (NEGATIVE); INFLUENZA B PATIENT NEGATIVE (NEGATIVE)
[2020-01-18 18:26] LABS: RSV PATIENT NEGATIVE (NEGATIVE)
[2020-01-18] MEDS: LATANOPROST 0.005% OPHTH SOLUTION 2.5ML BOTTLE. OU SCH (20:53)
[2020-01-18] MEDS: DULoxetine HCL 30 MG CAPSULE.DR PO SCH (20:55)
[2020-01-18] MEDS: QUEtiapine 100 MG TABLET. PO SCH (20:56)
[2020-01-18] MEDS: MIRTAZAPINE ODT 30 MG TAB.RAPDIS. PO SCH (20:57)
--- NOTE | 2020-01-18 22:45 | PDOC ---
Exam Note: David Note: Please also refer to the separate dictated note~for this date of service dictated separately. Discussed the patient with Nursing staff reviewed the chart.~Reviewed interim history and current functioning. Reviewed vital signs,~Labs/ Radiology~and current medications noted below. Continue current treatment with the changes noted in the dictated addendum note Assessment: Vital Signs/I&O: Vital Signs Date Time Temp Pulse Resp B/P (MAP) Pulse Ox O2 Delivery O2 Flow Rate FiO2 01/18/20 16:09 99.5 88 20 113/84 (94) 94 01/17/20 06:27 Nasal Cannula 2.0 I & O 01/17/20 01/17/20 01/18/20 15:00 23:00 07:00 Intake Total 720 ml 240 ml 120 ml Balance 720 ml 240 ml 120 ml Labs: Laboratory Tests Test 01/18/20 17:15 Influenza Type A (Rapid) Negative (NEGATIVE) Influenza Type B (Rapid) Negative (NEGATIVE) POC RSV Rapid Screen Negative (NEGATIVE) Group A Streptococcus Rapid Negative (NEGATIVE) Current Medications: Meds: Current Medications Medications (Trade) Dose Ordered Sig/Carlos Route PRN Reason Start Time Stop Time Status Last Admin Dose Admin Potassium Chloride (Klor-Con) 40 meq 1X ONCE PO 01/18/20 08:30 01/18/20 08:32 DC 01/18/20 08:42 Ondansetron HCl (Zofran Odt) 4 mg PRN Q8HRS PRN PO NAUSEA/VOMITING 01/18/20 15:45 01/18/20 17:00 I have reviewed the current psychotropics carefully including drug interactions. Risk benefit ratio favors no change other than as noted in my dictated progress note. Diagnosis: Problems: (1) Schizoaffective disorder, bipolar type (2) Hypokalemia (3) Acute UTI (4) Medical clearance for psychiatric admission (5) Anxiety disorder (6) Schizoaffective disorder, chronic condition with acute exacerbation (7) Impulse control disorder TERRENCE DANIEL MD Jan 18, 2020 22:45
[2020-01-19] MEDS: diphenhydrAMINE HCL 25 MG CAPSULE PO PRN (04:03)
[2020-01-19] MEDS: LEVOTHYROXINE 50 MCG TABLET PO SCH (05:20)
[2020-01-19 06:13] VITALS: BP 138/80
[2020-01-19] MEDS: HYDROcodone/APAP 5/325MG 1 TAB TABLET PO PRN (06:17)
[2020-01-19] MEDS: CETIRIZINE HCL 10 MG TABLET PO SCH (09:01)
[2020-01-19] MEDS: POTASSIUM CHLORIDE 20 MEQ TABLET.ER. PO SCH ×3 (09:01→20:47)
[2020-01-19] MEDS: ASPIRIN ENTERIC COATED 81 MG TABLET.DR. PO SCH (09:01)
[2020-01-19] MEDS: DIVALPROEX 125 MG CAP.SPRINK PO SCH ×2 (09:01→20:48)
[2020-01-19] MEDS: BENZTROPINE MESYLATE 1 MG TABLET PO SCH ×2 (09:01→20:45)
[2020-01-19] MEDS: SPIRONOLACTONE 25 MG TABLET PO SCH (09:02)
[2020-01-19] MEDS: POLYVINYL ALCOHOL 1.4% OPHTH SOLUTION 15ML BOTTLE. OU SCH ×3 (09:02→20:44)
[2020-01-19] MEDS: LUBIPROSTONE 24 MCG CAPSULE PO SCH ×2 (09:02→16:58)
[2020-01-19] MEDS: ACETAMINOPHEN 325 MG TABLET PO SCH ×3 (09:02→20:47)
[2020-01-19] MEDS: POLYVINYL ALCOHOL/POVIDONE/PF OPHTH SOLUTION DROPERETTE. OU SCH ×3 (09:02→20:46)
[2020-01-19] MEDS: TOPIRAMATE 100 MG TABLET. PO SCH ×2 (09:02→20:48)
[2020-01-19] MEDS: NYSTATIN TOPICAL POWDER 15GM BOTTLE. TP SCH ×2 (09:03→20:44)
[2020-01-19 16:33] VITALS: BP 98/60
--- NOTE | 2020-01-19 17:27 | RAD ---
EXAM: CHEST 1 VIEW History: Low oxygen saturation COMPARISON: 01/03/2020 TECHNIQUE: Single portable radiograph of the chest FINDINGS: The cardiac silhouette is unremarkable. Minimal bibasilar lung atelectasis or infiltrates. The costophrenic sulci are clear and well demarcated. IMPRESSION: Minimal bibasilar lung atelectasis or infiltrates. Electronically signed by: Ramses Claire MD (01/19/2020 5:24 PM) [id number]
[2020-01-19] MEDS: LATANOPROST 0.005% OPHTH SOLUTION 2.5ML BOTTLE. OU SCH (20:44)
[2020-01-19] MEDS: QUEtiapine 100 MG TABLET. PO SCH (20:45)
[2020-01-19] MEDS: MIRTAZAPINE ODT 30 MG TAB.RAPDIS. PO SCH (20:46)
[2020-01-19] MEDS: DULoxetine HCL 30 MG CAPSULE.DR PO SCH (20:46)
--- NOTE | 2020-01-19 21:50 | PDOC ---
Exam Note: David Note: Please also refer to the separate dictated note~for this date of service dictated separately. Discussed the patient with Nursing staff reviewed the chart.~Reviewed interim history and current functioning. Reviewed vital signs,~Labs/ Radiology~and current medications noted below. Continue current treatment with the changes noted in the dictated addendum note Assessment: Vital Signs/I&O: Vital Signs Date Time Temp Pulse Resp B/P (MAP) Pulse Ox O2 Delivery O2 Flow Rate FiO2 01/19/20 16:33 98.8 80 20 98/60 (73) 95 Room Air 3.0 I & O 01/18/20 01/18/20 01/19/20 15:00 23:00 07:00 Intake Total 240 ml 200 ml Balance 240 ml 200 ml Current Medications: I have reviewed the current psychotropics carefully including drug interactions. Risk benefit ratio favors no change other than as noted in my dictated progress note. Diagnosis: Problems: (1) Schizoaffective disorder, bipolar type (2) Medical clearance for psychiatric admission (3) Anxiety disorder (4) Schizoaffective disorder, chronic condition with acute exacerbation (5) Impulse control disorder (6) Acute UTI TERRENCE DAINEL MD Jan 19, 2020 21:50
[2020-01-20] MEDS: LEVOTHYROXINE 50 MCG TABLET PO SCH (05:17)
[2020-01-20 05:39] VITALS: BP 102/59
[2020-01-20] MEDS: DIVALPROEX 125 MG CAP.SPRINK PO SCH ×2 (10:08→21:50)
[2020-01-20] MEDS: LUBIPROSTONE 24 MCG CAPSULE PO SCH ×2 (10:08→17:07)
[2020-01-20] MEDS: BENZTROPINE MESYLATE 1 MG TABLET PO SCH ×2 (10:09→21:49)
[2020-01-20] MEDS: ASPIRIN ENTERIC COATED 81 MG TABLET.DR. PO SCH (10:09)
[2020-01-20] MEDS: CETIRIZINE HCL 10 MG TABLET PO SCH (10:09)
[2020-01-20] MEDS: ACETAMINOPHEN 325 MG TABLET PO SCH ×3 (10:09→21:48)
[2020-01-20] MEDS: TOPIRAMATE 100 MG TABLET. PO SCH ×2 (10:10→21:49)
[2020-01-20] MEDS: POTASSIUM CHLORIDE 20 MEQ TABLET.ER. PO SCH ×3 (10:10→21:48)
[2020-01-20] MEDS: SPIRONOLACTONE 25 MG TABLET PO SCH (10:11)
[2020-01-20] MEDS: POLYVINYL ALCOHOL 1.4% OPHTH SOLUTION 15ML BOTTLE. OU SCH ×2 (10:11→12:58)
[2020-01-20] MEDS: NYSTATIN TOPICAL POWDER 15GM BOTTLE. TP SCH ×2 (10:11→21:50)
[2020-01-20] MEDS: POLYVINYL ALCOHOL/POVIDONE/PF OPHTH SOLUTION DROPERETTE. OU SCH ×3 (10:11→21:49)
[2020-01-20] MEDS: NYSTATIN 100,000 UNIT/GM TOPICAL CREAM 15GM TUBE. TP SCH ×2 (12:56→21:49)
[2020-01-20 16:24] VITALS: BP 135/71
[2020-01-20] MEDS: MIRTAZAPINE ODT 30 MG TAB.RAPDIS. PO SCH (21:47)
[2020-01-20] MEDS: DULoxetine HCL 30 MG CAPSULE.DR PO SCH (21:47)
[2020-01-20] MEDS: QUEtiapine 100 MG TABLET. PO SCH (21:48)
[2020-01-20] MEDS: LATANOPROST 0.005% OPHTH SOLUTION 2.5ML BOTTLE. OU SCH (21:51)
--- NOTE | 2020-01-20 21:55 | PDOC ---
Exam Note: David Note: Please also refer to the separate dictated note~for this date of service dictated separately. Discussed the patient with Nursing staff reviewed the chart.~Reviewed interim history and current functioning. Reviewed vital signs,~Labs/ Radiology~and current medications noted below. Continue current treatment with the changes noted in the dictated addendum note Assessment: Vital Signs/I&O: Vital Signs Date Time Temp Pulse Resp B/P (MAP) Pulse Ox O2 Delivery O2 Flow Rate FiO2 01/20/20 16:24 98.0 77 16 135/71 (92) 91 2.0 01/19/20 16:33 Room Air I & O 01/19/20 01/19/20 01/20/20 15:00 23:00 07:00 Intake Total 480 ml Balance 480 ml Current Medications: Meds: Current Medications Medications (Trade) Dose Ordered Sig/Carlos Route PRN Reason Start Time Stop Time Status Last Admin Dose Admin Nystatin (Mycostatin) 1 lala BID TP 01/20/20 11:15 01/20/20 21:49 I have reviewed the current psychotropics carefully including drug interactions. Risk benefit ratio favors no change other than as noted in my dictated progress note. Diagnosis: Problems: (1) Schizoaffective disorder, bipolar type (2) Anxiety disorder (3) Schizoaffective disorder, chronic condition with acute exacerbation (4) Impulse control disorder TERRENCE DANIEL MD Jan 20, 2020 21:55
[2020-01-21] MEDS: LEVOTHYROXINE 50 MCG TABLET PO SCH (05:40)
[2020-01-21 06:23] VITALS: BP 128/79
[2020-01-21] MEDS: SPIRONOLACTONE 25 MG TABLET PO SCH (09:28)
[2020-01-21] MEDS: CETIRIZINE HCL 10 MG TABLET PO SCH (09:28)
[2020-01-21] MEDS: DIVALPROEX 125 MG CAP.SPRINK PO SCH ×2 (09:28→21:24)
[2020-01-21] MEDS: POTASSIUM CHLORIDE 20 MEQ TABLET.ER. PO SCH ×3 (09:29→21:25)
[2020-01-21] MEDS: BENZTROPINE MESYLATE 1 MG TABLET PO SCH ×2 (09:29→21:24)
[2020-01-21] MEDS: LUBIPROSTONE 24 MCG CAPSULE PO SCH ×2 (09:29→16:36)
[2020-01-21] MEDS: ACETAMINOPHEN 325 MG TABLET PO SCH ×3 (09:29→21:23)
[2020-01-21] MEDS: ASPIRIN ENTERIC COATED 81 MG TABLET.DR. PO SCH (09:30)
[2020-01-21] MEDS: NYSTATIN 100,000 UNIT/GM TOPICAL CREAM 15GM TUBE. TP SCH ×2 (09:31→21:24)
[2020-01-21] MEDS: POLYVINYL ALCOHOL/POVIDONE/PF OPHTH SOLUTION DROPERETTE. OU SCH ×3 (09:31→21:24)
[2020-01-21] MEDS: NYSTATIN TOPICAL POWDER 15GM BOTTLE. TP SCH ×2 (09:32→21:25)
[2020-01-21] MEDS: TOPIRAMATE 100 MG TABLET. PO SCH ×2 (09:37→21:25)
[2020-01-21 15:41] VITALS: BP 131/72
[2020-01-21] MEDS: QUEtiapine 100 MG TABLET. PO SCH (21:23)
[2020-01-21] MEDS: MIRTAZAPINE ODT 30 MG TAB.RAPDIS. PO SCH (21:24)
[2020-01-21] MEDS: DULoxetine HCL 30 MG CAPSULE.DR PO SCH (21:25)
[2020-01-21] MEDS: LATANOPROST 0.005% OPHTH SOLUTION 2.5ML BOTTLE. OU SCH (23:01)
[2020-01-22] MEDS: LEVOTHYROXINE 50 MCG TABLET PO SCH ×2 (05:39→06:00)
[2020-01-22 06:02] VITALS: BP 117/67
--- NOTE | 2020-01-22 06:58 | PDOC ---
Exam Note: David Note: This is a late entry for 01/17/2020. Currently, the unit is shutdown for any admissions and discharges as directed by the Centers for Disease Control (CDC) and the [facility] of Health and Environment ([facility]) because of Coronavirus (COVID-19) exposure on the unit. S/O: This is a Telepsychiatry Progress Note. This note covers elements not covered in my initial note. The patient was reviewed with nursing staff, reviewed the chart and TeleHealth Services provided for this date for the patient. She slept 5-3/4 hours. She has been cooperative on the unit. Per nursing report she is doing better. ROS: Ambulation impaired in wheelchair. No CV, , Eye system symptoms on review. Does complain of itchy eyes. MSE: Oriented to herself and situation. Speech is coherent. Abstraction fair. Computation impaired. Language function intact. Mood and affect somewhat withdrawn, anxious. Labs: Reviewed. Imp: Schizoaffective disorder bipolar type mixed with psychotic features. An xiety disorder unspecified. Impulse control disorder unspecified. Plan: Continue psychotropics from initial note. Assessment: Vital Signs/I&O: Vital Signs Date Time Temp Pulse Resp B/P (MAP) Pulse Ox O2 Delivery O2 Flow Rate FiO2 01/22/20 06:02 97.4 69 22 117/67 (84) 93 01/21/20 15:41 3.0 01/19/20 16:33 Room Air I & O 01/21/20 01/21/20 01/22/20 15:00 23:00 07:00 Intake Total 600 ml 360 ml Balance 600 ml 360 ml Current Medications: I have reviewed the current psychotropics carefully including drug interactions. Risk benefit ratio favors no change other than as noted in my dictated progress note. Diagnosis: Problems: (1) Schizoaffective disorder, bipolar type (2) Anxiety disorder (3) Schizoaffective disorder, chronic condition with acute exacerbation (4) Impulse control disorder TERRENCE DANIEL MD Jan 22, 2020 06:58
--- NOTE | 2020-01-22 07:32 | PDOC ---
Exam Note: David Note: This is a late entry for 01/18/2020. Currently, the unit is shutdown for any admissions and discharges as directed by the Centers for Disease Control (CDC) and the [facility] of [facility] and Environment ([facility]) because of Coronavirus (COVID-19) exposure on the unit. S/O: This note covers elements not covered in my initial note. The patient was reviewed with nursing staff, reviewed the chart and TeleHealth Services provided for this date for the patient. Discussed with Nora KEEN. She slept 6 hours. She has been spending much time in her room, has had some diarrhea. Temperature was 99.5 degrees. Given the Coronavirus exposure on the unit, we will go ahead and check her throat and nasopharyngeal swab for COVID-19. Later temperature was 98.5 degrees but she takes scheduled Tylenol 3 times a day for pain. ROS: Ambulation impaired in wheelchair. No CV, , Eye system symptoms on review. Remains on 3L oxygen. MSE: Oriented to herself and situation. Speech is coherent. Abstraction fair. Computation impaired. Language function intact. Mood and affect somewhat withdrawn, anxious. Labs: Reviewed. Imp: Schizoaffective disorder bipolar type mixed with psychotic features. Anxiety disorder unspecified. Impulse control disorder unspecified. Plan: Continue psychotropics from initial note. Assessment: Vital Signs/I&O: Vital Signs Date Time Temp Pulse Resp B/P (MAP) Pulse Ox O2 Delivery O2 Flow Rate FiO2 01/22/20 06:02 97.4 69 22 117/67 (84) 93 01/21/20 15:41 3.0 01/19/20 16:33 Room Air I & O 01/21/20 01/21/20 01/22/20 15:00 23:00 07:00 Intake Total 600 ml 360 ml Balance 600 ml 360 ml Current Medications: I have reviewed the current psychotropics carefully including drug interactions. Risk benefit ratio favors no change other than as noted in my dictated progress note. Diagnosis: Problems: (1) Schizoaffective disorder, bipolar type (2) Anxiety disorder (3) Schizoaffective disorder, chronic condition with acute exacerbation (4) Impulse control disorder TERRENCE DANIEL MD Jan 22, 2020 07:32
--- NOTE | 2020-01-22 08:01 | PDOC ---
Exam Note: David Note: This is a late entry for 01/19/2020. Currently, the unit is shutdown for any admissions and discharges as directed by the Centers for Disease Control (CDC) and the [facility] of Health and Environment ([facility]) because of Coronavirus (COVID-19) exposure on the unit. S/O: This note covers elements not covered in my initial note. The patient was reviewed with nursing staff, reviewed the chart and TeleHealth Services provided for this date for the patient. Discussed with Nora KEEN. She complains shortness of breath. Breath sounds were somewhat diminished, right lower lobe per nursing report and her O2 saturations dropped into the high, into the low 90s on 3L oxygen. We will check a chest x-ray. At the time of this dictation chest x-ray was non-significant. ROS: Ambulation impaired in wheelchair. No CV, , Eye system symptoms on review. MSE: Oriented to herself and situation. Speech is coherent. Abstraction fair. Computation impaired. Language function intact. Mood and affect somewhat withdrawn, anxious. Labs: Reviewed. Imp: Schizoaffective disorder bipolar type mixed with psychotic features. Anxiety disorder unspecified. Impulse control disorder unspecified. Plan: Continue psychotropics from initial note. Assessment: Vital Signs/I&O: Vital Signs Date Time Temp Pulse Resp B/P (MAP) Pulse Ox O2 Delivery O2 Flow Rate FiO2 01/22/20 06:02 97.4 69 22 117/67 (84) 93 01/21/20 15:41 3.0 01/19/20 16:33 Room Air I & O 01/21/20 01/21/20 01/22/20 15:00 23:00 07:00 Intake Total 600 ml 360 ml Balance 600 ml 360 ml Current Medications: I have reviewed the current psychotropics carefully including drug interactions. Risk benefit ratio favors no change other than as noted in my dictated progress note. Diagnosis: Problems: (1) Schizoaffective disorder, bipolar type (2) Anxiety disorder (3) Schizoaffective disorder, chronic condition with acute exacerbation (4) Impulse control disorder TERRENCE DANIEL MD Jan 22, 2020 08:01
--- NOTE | 2020-01-22 08:30 | PDOC ---
Exam Note: David Note: This is a late entry for 01/20/2020. Currently, the unit is shutdown for any admissions and discharges as directed by the Centers for Disease Control (CDC) and the [facility] ([facility]) because of Coronavirus (COVID-19) exposure on the unit. S/O: This note covers elements not covered in my initial note. The patient was reviewed with nursing staff, reviewed the chart and TeleHealth Services provided for this date for the patient. Discussed with Nora KEEN. ROS: Ambulation impaired in wheelchair. No CV, , Eye system symptoms on review. MSE: Oriented to herself and situation. Speech is coherent. Abstraction fair. Computation impaired. Language function intact. Mood and affect somewhat withdrawn, anxious. Labs: Reviewed. Imp: Schizoaffective disorder bipolar type mixed with psychotic features. Anxiety disorder unspecified. Impulse control disorder unspecified. Plan: Continue psychotropics from initial note. Assessment: Vital Signs/I&O: Vital Signs Date Time Temp Pulse Resp B/P (MAP) Pulse Ox O2 Delivery O2 Flow Rate FiO2 01/22/20 06:02 97.4 69 22 117/67 (84) 93 01/21/20 15:41 3.0 01/19/20 16:33 Room Air I & O 01/21/20 01/21/20 01/22/20 14:59 22:59 06:59 Intake Total 600 ml 360 ml Balance 600 ml 360 ml Current Medications: I have reviewed the current psychotropics carefully including drug interactions. Risk benefit ratio favors no change other than as noted in my dictated progress note. Diagnosis: Problems: (1) Schizoaffective disorder, bipolar type (2) Anxiety disorder (3) Schizoaffective disorder, chronic condition with acute exacerbation (4) Impulse control disorder TERRENCE DANIEL MD Jan 22, 2020 08:30
--- NOTE | 2020-01-22 08:58 | PDOC ---
Exam Note: David Note: This is a late entry for 01/21/2020. Currently, the unit is shutdown for any admissions and discharges as directed by the Centers for Disease Control (CDC) and the [facility] ([facility]) because of Coronavirus (COVID-19) exposure on the unit. S/O: This note covers elements not covered in my initial note. The patient was reviewed with nursing staff, reviewed the chart and TeleHealth Services provided for this date for the patient. She was seen on a video-conferencing call coordinated with Addi KEEN, nursing staff on the unit whose appropriately protected with personal protective equipment and mask on the unit. Discussed with OSMANI Lou. Slept 5-1/2 hours isolating in her room. Her O2 sat is 99% on 3L oxygen. ROS: Shortness of breath, impaired ambulation in a wheelchair. No CV, , system symptoms on review. MSE: Oriented to herself and situation. Speech is coherent. Abstraction fair. Computation impaired. Language function intact. Mood and affect somewhat withdrawn, anxious. Labs: Reviewed. Imp: Schizoaffective disorder bipolar type mixed with psychotic features. Anxiety disorder unspecified. Impulse control disorder unspecified. Plan: Continue psychotropics from initial note. Assessment: Vital Signs/I&O: Vital Signs Date Time Temp Pulse Resp B/P (MAP) Pulse Ox O2 Delivery O2 Flow Rate FiO2 01/22/20 06:02 97.4 69 22 117/67 (84) 93 01/21/20 15:41 3.0 01/19/20 16:33 Room Air I & O 01/21/20 01/21/20 01/22/20 15:00 23:00 07:00 Intake Total 600 ml 360 ml Balance 600 ml 360 ml Current Medications: I have reviewed the current psychotropics carefully including drug interactions. Risk benefit ratio favors no change other than as noted in my dictated progress note. Diagnosis: Problems: (1) Schizoaffective disorder, bipolar type (2) Hypokalemia (3) Medical clearance for psychiatric admission (4) Anxiety disorder (5) Schizoaffective disorder, chronic condition with acute exacerbation (6) Impulse control disorder TERRENCE DANIEL MD Jan 22, 2020 08:58
[2020-01-22] MEDS: TOPIRAMATE 100 MG TABLET. PO SCH ×2 (11:05→20:33)
[2020-01-22] MEDS: POLYVINYL ALCOHOL/POVIDONE/PF OPHTH SOLUTION DROPERETTE. OU SCH ×3 (11:05→20:33)
[2020-01-22] MEDS: NYSTATIN 100,000 UNIT/GM TOPICAL CREAM 15GM TUBE. TP SCH ×2 (11:06→20:32)
[2020-01-22] MEDS: NYSTATIN TOPICAL POWDER 15GM BOTTLE. TP SCH ×2 (11:06→20:32)
[2020-01-22] MEDS: CETIRIZINE HCL 10 MG TABLET PO SCH (11:07)
[2020-01-22] MEDS: LUBIPROSTONE 24 MCG CAPSULE PO SCH ×2 (11:07→18:00)
[2020-01-22] MEDS: SPIRONOLACTONE 25 MG TABLET PO SCH (11:07)
[2020-01-22] MEDS: BENZTROPINE MESYLATE 1 MG TABLET PO SCH ×2 (11:08→20:35)
[2020-01-22] MEDS: DIVALPROEX 125 MG CAP.SPRINK PO SCH ×2 (11:08→20:32)
[2020-01-22] MEDS: ACETAMINOPHEN 325 MG TABLET PO SCH ×3 (11:08→20:34)
[2020-01-22] MEDS: ASPIRIN ENTERIC COATED 81 MG TABLET.DR. PO SCH (11:08)
[2020-01-22] MEDS: metOLazone 5 MG TABLET PO SCH (11:09)
[2020-01-22] MEDS: POTASSIUM CHLORIDE 20 MEQ TABLET.ER. PO SCH ×3 (11:11→20:34)
[2020-01-22 16:24] VITALS: BP 139/80
[2020-01-22] MEDS: LATANOPROST 0.005% OPHTH SOLUTION 2.5ML BOTTLE. OU SCH (20:32)
[2020-01-22] MEDS: MIRTAZAPINE ODT 30 MG TAB.RAPDIS. PO SCH (20:34)
[2020-01-22] MEDS: QUEtiapine 100 MG TABLET. PO SCH (20:34)
[2020-01-22] MEDS: DULoxetine HCL 30 MG CAPSULE.DR PO SCH (20:34)
[2020-01-22] MEDS: diphenhydrAMINE HCL 25 MG CAPSULE PO PRN (20:36)
--- NOTE | 2020-01-22 23:21 | PDOC ---
Exam Note: David Note: S/O: This note covers elements not covered in my initial note. The patient was reviewed with nursing staff, reviewed the chart. Discussed with OSMANI Luo. Patient slept 7 hours previous night. Patient remains on isolation consequent to the exposure to COVID-19 and throat swab is awaited. She refused Synthroid in the morning, more cooperative later in the day. ROS: Ambulation impaired in a wheelchair. No CV, , Eye system symptoms on review. She is short of breath, remains on 3L oxygen. MSE: Oriented reasonably. Speech is coherent. Abstraction fair. Computation impaired. Language function intact. Mood and affect somewhat improved. Labs: Reviewed. Imp: Schizoaffective disorder bipolar type mixed with psychotic features. Anxiety disorder unspecified. Impulse control disorder unspecified. Plan: Unchanged from initial note. She remains in isolation till we get screen returned for the Coronavirus (COVID-19). Assessment: Vital Signs/I&O: Vital Signs Date Time Temp Pulse Resp B/P (MAP) Pulse Ox O2 Delivery O2 Flow Rate FiO2 01/22/20 16:24 98.3 84 18 139/80 (99) 96 Nasal Cannula 3.0 I & O 01/21/20 01/21/20 01/22/20 15:00 23:00 07:00 Intake Total 600 ml 360 ml Balance 600 ml 360 ml Current Medications: I have reviewed the current psychotropics carefully including drug interactions. Risk benefit ratio favors no change other than as noted in my dictated progress note. Diagnosis: Problems: (1) Schizoaffective disorder, bipolar type (2) Anxiety disorder (3) Schizoaffective disorder, chronic condition with acute exacerbation (4) Impulse control disorder TERRENCE DANIEL MD Jan 22, 2020 23:21
[2020-01-23] MEDS: LEVOTHYROXINE 50 MCG TABLET PO SCH (06:02)
[2020-01-23 06:32] VITALS: BP 121/77
[2020-01-23] MEDS: SPIRONOLACTONE 25 MG TABLET PO SCH (10:17)
[2020-01-23] MEDS: ACETAMINOPHEN 325 MG TABLET PO SCH ×3 (10:17→21:15)
[2020-01-23] MEDS: POTASSIUM CHLORIDE 20 MEQ TABLET.ER. PO SCH ×3 (10:17→21:14)
[2020-01-23] MEDS: LUBIPROSTONE 24 MCG CAPSULE PO SCH ×2 (10:17→17:00)
[2020-01-23] MEDS: BENZTROPINE MESYLATE 1 MG TABLET PO SCH ×2 (10:18→21:15)
[2020-01-23] MEDS: TOPIRAMATE 100 MG TABLET. PO SCH ×2 (10:19→21:14)
[2020-01-23] MEDS: POLYVINYL ALCOHOL/POVIDONE/PF OPHTH SOLUTION DROPERETTE. OU SCH ×3 (10:19→21:13)
[2020-01-23] MEDS: CETIRIZINE HCL 10 MG TABLET PO SCH (10:19)
[2020-01-23] MEDS: NYSTATIN TOPICAL POWDER 15GM BOTTLE. TP SCH ×2 (10:19→21:16)
[2020-01-23] MEDS: NYSTATIN 100,000 UNIT/GM TOPICAL CREAM 15GM TUBE. TP SCH ×2 (10:19→21:00)
[2020-01-23] MEDS: DIVALPROEX 125 MG CAP.SPRINK PO SCH ×2 (10:19→21:16)
[2020-01-23] MEDS: ASPIRIN ENTERIC COATED 81 MG TABLET.DR. PO SCH (10:19)
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
[2020-01-23 16:28] VITALS: BP 137/82
[2020-01-23] MEDS: LATANOPROST 0.005% OPHTH SOLUTION 2.5ML BOTTLE. OU SCH (21:13)
[2020-01-23] MEDS: MIRTAZAPINE ODT 30 MG TAB.RAPDIS. PO SCH (21:14)
[2020-01-23] MEDS: DULoxetine HCL 30 MG CAPSULE.DR PO SCH (21:15)
[2020-01-23] MEDS: QUEtiapine 100 MG TABLET. PO SCH (21:15)
[2020-01-23] MEDS: diphenhydrAMINE HCL 25 MG CAPSULE PO PRN (21:57)
--- NOTE | 2020-01-23 23:57 | PDOC ---
Exam Note: David Note: S/O: This note covers elements not covered in my initial note. Discussed the patient with nursing staff, reviewed the chart. In the morning, the patient had treatment team meeting with the entire team nursing staff, social service staff and myself. Appetite 100%. Sleeping average 6-1/4 hours. She remains is olative, often urinates on the floor, compliant with medications. ROS: Ambulation impaired in a wheelchair. Has shortness of breath on 3L oxygen. No CV, , Pulmonary system symptoms on review. MSE: Oriented reasonably. Speech has some latency, coherent. Abstraction fair. Computation impaired. Language function intact. Mood and affect lability improved. Labs: Reviewed. Imp: Schizoaffective disorder, bipolar type mixed with psychotic features versus bipolar disorder mixed with psychotic features. Rest unchanged. Plan: Check chemistry profile in the morning. Continue psychotropics mentioned and listed in my note. Assessment: Vital Signs/I&O: Vital Signs Date Time Temp Pulse Resp B/P (MAP) Pulse Ox O2 Delivery O2 Flow Rate FiO2 01/23/20 16:28 98.2 98 16 137/82 (100) 96 Nasal Cannula 3.0 I & O 01/22/20 01/22/20 01/23/20 15:00 23:00 07:00 Intake Total 480 ml 480 ml Balance 480 ml 480 ml Current Medications: I have reviewed the current psychotropics carefully including drug interactions. Risk benefit ratio favors no change other than as noted in my dictated progress note. Diagnosis: Problems: (1) Schizoaffective disorder, bipolar type (2) Medical clearance for psychiatric admission (3) Anxiety disorder (4) Schizoaffective disorder, chronic condition with acute exacerbation (5) Impulse control disorder TERRENCE DANIEL MD Jan 23, 2020 23:57
[2020-01-24] MEDS: LEVOTHYROXINE 50 MCG TABLET PO SCH (05:09)
[2020-01-24 06:56] VITALS: BP 120/76
[2020-01-24 07:00] LABS: BASO % 1 % (0-3); EOS # 0.3 x10^3/uL (0.0-0.7); EOS % 5 % (0-3); HEMATOCRIT 42.7 % (36.0-47.0); HEMOGLOBIN 13.5 g/dL (12.0-15.5); LYMPH # 1.4 x10^3/uL (1.0-4.8); LYMPH % 25 % (24-48); MEAN CORPUSCULAR HEMOGLOBIN 30 pg (25-35); MEAN CORPUSCULAR HGB CONC 32 g/dL (31-37); MEAN CORPUSCULAR VOLUME 95 fL (79-100); MONO # 0.6 x10^3/uL (0.0-1.1); MONO % 10 % (0-9); NEUT # 3.4 x10^3uL (1.8-7.7); NEUT % 60 % (31-73); PLATELET COUNT 164 x10^3/uL (140-400); RED BLOOD COUNT 4.52 x10^6/uL (3.50-5.40); RED CELL DISTRIBUTION WIDTH 15.4 % (11.5-14.5); WHITE BLOOD COUNT 5.7 x10^3/uL (4.0-11.0)
[2020-01-24 07:14] LABS: ALBUMIN 2.6 g/dL (3.4-5.0); ALBUMIN/GLOBULIN RATIO 0.6 (1.0-1.7); CALCIUM 8.3 mg/dL (8.5-10.1); CREATININE 0.9 mg/dL (0.6-1.0); GFR 62.5; POTASSIUM 3.7 mmol/L (3.5-5.1); TOTAL BILIRUBIN 0.1 mg/dL (0.2-1.0)
[2020-01-24] MEDS: NYSTATIN 100,000 UNIT/GM TOPICAL CREAM 15GM TUBE. TP SCH ×2 (08:37→20:37)
[2020-01-24] MEDS: ACETAMINOPHEN 325 MG TABLET PO SCH ×3 (09:14→20:41)
[2020-01-24] MEDS: POLYVINYL ALCOHOL/POVIDONE/PF OPHTH SOLUTION DROPERETTE. OU SCH ×3 (09:14→20:34)
[2020-01-24] MEDS: TOPIRAMATE 100 MG TABLET. PO SCH ×2 (09:15→20:42)
[2020-01-24] MEDS: LUBIPROSTONE 24 MCG CAPSULE PO SCH ×2 (09:15→17:08)
[2020-01-24] MEDS: POTASSIUM CHLORIDE 20 MEQ TABLET.ER. PO SCH ×3 (09:15→20:38)
[2020-01-24] MEDS: ASPIRIN ENTERIC COATED 81 MG TABLET.DR. PO SCH (09:15)
[2020-01-24] MEDS: BENZTROPINE MESYLATE 1 MG TABLET PO SCH ×2 (09:15→20:37)
[2020-01-24] MEDS: SPIRONOLACTONE 25 MG TABLET PO SCH (09:15)
[2020-01-24] MEDS: CETIRIZINE HCL 10 MG TABLET PO SCH (09:15)
[2020-01-24] MEDS: DIVALPROEX 125 MG CAP.SPRINK PO SCH ×2 (09:16→20:40)
[2020-01-24] MEDS: NYSTATIN TOPICAL POWDER 15GM BOTTLE. TP SCH ×2 (09:16→20:35)
[2020-01-24] MEDS ORDERED: ENOXAPARIN 40 MG/0.4 ML SYRINGE. SQ SCH (17:00)
[2020-01-24 18:15] VITALS: BP 148/79
[2020-01-24] MEDS: LATANOPROST 0.005% OPHTH SOLUTION 2.5ML BOTTLE. OU SCH (20:35)
[2020-01-24] MEDS: QUEtiapine 100 MG TABLET. PO SCH (20:39)
[2020-01-24] MEDS: DULoxetine HCL 30 MG CAPSULE.DR PO SCH (20:40)
[2020-01-24] MEDS: MIRTAZAPINE ODT 30 MG TAB.RAPDIS. PO SCH (20:42)
[2020-01-25] MEDS: LEVOTHYROXINE 50 MCG TABLET PO SCH (05:23)
[2020-01-25 06:20] VITALS: BP 129/73
[2020-01-25] MEDS: LUBIPROSTONE 24 MCG CAPSULE PO SCH ×2 (09:51→17:20)
[2020-01-25] MEDS: SPIRONOLACTONE 25 MG TABLET PO SCH (09:51)
[2020-01-25] MEDS: POLYVINYL ALCOHOL/POVIDONE/PF OPHTH SOLUTION DROPERETTE. OU SCH ×3 (09:51→20:13)
[2020-01-25] MEDS: ASPIRIN ENTERIC COATED 81 MG TABLET.DR. PO SCH (09:52)
[2020-01-25] MEDS: DIVALPROEX 125 MG CAP.SPRINK PO SCH ×2 (09:52→20:13)
[2020-01-25] MEDS: POTASSIUM CHLORIDE 20 MEQ TABLET.ER. PO SCH ×3 (09:52→20:16)
[2020-01-25] MEDS: BENZTROPINE MESYLATE 1 MG TABLET PO SCH ×2 (09:52→20:14)
[2020-01-25] MEDS: ACETAMINOPHEN 325 MG TABLET PO SCH ×3 (09:53→20:16)
[2020-01-25] MEDS: TOPIRAMATE 100 MG TABLET. PO SCH ×2 (09:53→20:14)
[2020-01-25] MEDS: CETIRIZINE HCL 10 MG TABLET PO SCH (09:54)
[2020-01-25] MEDS: NYSTATIN 100,000 UNIT/GM TOPICAL CREAM 15GM TUBE. TP SCH ×2 (09:54→20:18)
[2020-01-25] MEDS: NYSTATIN TOPICAL POWDER 15GM BOTTLE. TP SCH ×2 (09:54→20:18)
[2020-01-25] MEDS: diphenhydrAMINE HCL 25 MG CAPSULE PO PRN ×2 (09:55→20:17)
[2020-01-25] MEDS: ENOXAPARIN ** NOTE DOSE ** SYRINGE SQ SCH ×2 (11:00→20:18)
[2020-01-25 16:09] VITALS: BP 127/76
[2020-01-25] MEDS: LATANOPROST 0.005% OPHTH SOLUTION 2.5ML BOTTLE. OU SCH (20:13)
[2020-01-25] MEDS: MIRTAZAPINE ODT 30 MG TAB.RAPDIS. PO SCH (20:15)
[2020-01-25] MEDS: QUEtiapine 100 MG TABLET. PO SCH (20:15)
[2020-01-25] MEDS: DULoxetine HCL 30 MG CAPSULE.DR PO SCH (20:17)
[2020-01-26] MEDS: LEVOTHYROXINE 50 MCG TABLET PO SCH (05:28)
[2020-01-26 05:52] VITALS: BP 146/86
--- NOTE | 2020-01-26 08:08 | PDOC ---
Exam Note: David Note: S/O: This note is a late entry for DOS 01/24/2020 covers elements not covered in my initial note. Discussed the patient with nursing staff, reviewed the chart. Discussed with Sneha KEEN. Patient is on the restricted unit due to COVID- 19 screen being awaited. I met with the patient in the evening via audio-visual coordinated with Addi KEEN. ROS: No CV, , Pulmonary, Eye system symptoms on review. Gait unsteady in wheelchair. MSE: Oriented to herself and situation. Speech coherent. Abstraction fair. Computation impaired. Language function intact. Mood and affect lability improved. Labs: Reviewed. Imp: Schizoaffective disorder, bipolar type mixed with psychotic features versu s bipolar disorder mixed with psychotic features. Rest unchanged. Plan: No change from initial note. Assessment: Vital Signs/I&O: Vital Signs Date Time Temp Pulse Resp B/P (MAP) Pulse Ox O2 Delivery O2 Flow Rate FiO2 01/26/20 05:52 97.6 80 20 146/86 (106) 95 Nasal Cannula 2.5 I & O 01/25/20 01/25/20 01/26/20 15:00 23:00 07:00 Intake Total 700 ml 240 ml 360 ml Balance 700 ml 240 ml 360 ml Current Medications: Meds: Current Medications Medications (Trade) Dose Ordered Sig/Carlos Route PRN Reason Start Time Stop Time Status Last Admin Dose Admin Enoxaparin Sodium (Lovenox 60mg Syringe) 60 mg Q12HR SQ 01/25/20 11:00 01/25/20 20:18 I have reviewed the current psychotropics carefully including drug interactions. Risk benefit ratio favors no change other than as noted in my dictated progress note. Diagnosis: Problems: (1) Schizoaffective disorder, bipolar type (2) Anxiety disorder (3) Schizoaffective disorder, chronic condition with acute exacerbation (4) Impulse control disorder TERRENCE DANIEL MD Jan 26, 2020 08:08
[2020-01-26] MEDS: LUBIPROSTONE 24 MCG CAPSULE PO SCH ×2 (08:09→17:30)
[2020-01-26] MEDS: BENZTROPINE MESYLATE 1 MG TABLET PO SCH ×2 (08:10→19:52)
[2020-01-26] MEDS: POLYVINYL ALCOHOL/POVIDONE/PF OPHTH SOLUTION DROPERETTE. OU SCH ×3 (08:10→19:50)
[2020-01-26] MEDS: SPIRONOLACTONE 25 MG TABLET PO SCH (08:10)
[2020-01-26] MEDS: ASPIRIN ENTERIC COATED 81 MG TABLET.DR. PO SCH (08:10)
[2020-01-26] MEDS: POTASSIUM CHLORIDE 20 MEQ TABLET.ER. PO SCH ×3 (08:11→19:51)
[2020-01-26] MEDS: TOPIRAMATE 100 MG TABLET. PO SCH ×2 (08:11→19:54)
[2020-01-26] MEDS: DIVALPROEX 125 MG CAP.SPRINK PO SCH ×2 (08:11→19:51)
[2020-01-26] MEDS: ACETAMINOPHEN 325 MG TABLET PO SCH ×3 (08:12→19:52)
[2020-01-26] MEDS: CETIRIZINE HCL 10 MG TABLET PO SCH (08:12)
[2020-01-26] MEDS: NYSTATIN 100,000 UNIT/GM TOPICAL CREAM 15GM TUBE. TP SCH ×2 (08:13→19:50)
[2020-01-26] MEDS: NYSTATIN TOPICAL POWDER 15GM BOTTLE. TP SCH ×2 (08:13→19:50)
[2020-01-26] MEDS: ENOXAPARIN ** NOTE DOSE ** SYRINGE SQ SCH (08:13)
--- NOTE | 2020-01-26 08:34 | PDOC ---
Exam Note: David Note: S/O: This note is a late entry for DOS 01/25/2020 covers elements not covered in my initial note. Discussed the patient with nursing staff, reviewed the chart. Discussed with Arlyn KEEN. Slept 6-1/4 hours. Met with the patient audio-visually coordinated by Modesta KEEN in the evening. Her COVID-19 screen is negative. She has been anxious, needy, demanding at times, attention seeking but compliant with shower. ROS: I met with her in the evening in her room. Ambulation impaired in wheelchair. No CV, , Pulmonary system symptoms on review. MSE: Oriented to herself and situation. Speech coherent. Abstraction fair. Computation impaired. Language function intact. Attention span short. Mood and affect is somewhat improved. Labs: Reviewed. Imp: Schizoaffective disorder, bipolar type mixed with psychotic features versus bipolar disorder mixed with psychotic features. Rest unchanged. Plan: No change from initial note. Assessment: Vital Signs/I&O: Vital Signs Date Time Temp Pulse Resp B/P (MAP) Pulse Ox O2 Delivery O2 Flow Rate FiO2 01/26/20 05:52 97.6 80 20 146/86 (106) 95 Nasal Cannula 2.5 I & O 0 01/25/20 01/25/20 01/26/20 15:00 23:00 07:00 Intake Total 700 ml 240 ml 360 ml Balance 700 ml 240 ml 360 ml Current Medications: Meds: Current Medications Medications (Trade) Dose Ordered Sig/Carlos Route PRN Reason Start Time Stop Time Status Last Admin Dose Admin Enoxaparin Sodium (Lovenox 60mg Syringe) 60 mg Q12HR SQ 01/25/20 11:00 01/26/20 08:13 I have reviewed the current psychotropics carefully including drug interactions. Risk benefit ratio favors no change other than as noted in my dictated progress note. Diagnosis: Problems: (1) Schizoaffective disorder, bipolar type (2) Anxiety disorder (3) Schizoaffective disorder, chronic condition with acute exacerbation (4) Impulse control disorder TERRENCE DANIEL MD Jan 26, 2020 08:34
[2020-01-26 16:12] VITALS: BP 141/68
[2020-01-26] MEDS: LATANOPROST 0.005% OPHTH SOLUTION 2.5ML BOTTLE. OU SCH (19:50)
[2020-01-26] MEDS: DULoxetine HCL 30 MG CAPSULE.DR PO SCH (19:50)
[2020-01-26] MEDS: MIRTAZAPINE ODT 30 MG TAB.RAPDIS. PO SCH (19:52)
[2020-01-26] MEDS: QUEtiapine 100 MG TABLET. PO SCH (19:53)
--- NOTE | 2020-01-26 22:52 | PDOC ---
Exam Note: David Note: S/O: This note covers elements not covered in my initial note. The patient was seen on TeleHealth rounds evening of 01/26/2020 coordinated and discussed by Lulú KEEN. Discussed the patient with nursing staff, reviewed the chart. The patient has been requesting repeat Benadryl for itching. Per nursing staff she wants to remain sedated and then does not interact very much. We have avoided giving her Benadryl today and if needed we will change it to a non-sedating antihistamine but she is already on Zyrtec. She did sleep 7 hours previous night, has been somewhat needy per nursing report. ROS: Ambulation impaired in wheelchair. No CV, , Pulmonary, Eye system symptoms on review. MSE: Oriented to herself and situation. Speech coherent has some latency. Abstraction fair. Computation impaired. Language function intact. Mood and affect withdrawn. Labs: Reviewed. Imp: Schizoaffective disorder, bipolar type mixed with psychotic features versus bipolar disorder mixed with psychotic features. Rest unchanged. Plan: No change from current list of her psychotropics but if mood lability persists, we may need to increase Seroquel. Assessment: Vital Signs/I&O: Vital Signs Date Time Temp Pulse Resp B/P (MAP) Pulse Ox O2 Delivery O2 Flow Rate FiO2 01/26/20 16:12 98.4 92 20 141/68 (92) 93 Nasal Cannula 2.0 I & O 01/25/20 01/25/20 01/26/20 15:00 23:00 07:00 Intake Total 700 ml 240 ml 360 ml Balance 700 ml 240 ml 360 ml Current Medications: I have reviewed the current psychotropics carefully including drug interactions. Risk benefit ratio favors no change other than as noted in my dictated progress note. Diagnosis: Problems: (1) Schizoaffective disorder, bipolar type (2) Anxiety disorder (3) Schizoaffective disorder, chronic condition with acute exacerbation (4) Impulse control disorder TERRENCE DANIEL MD Jan 26, 2020 22:52
[2020-01-27] MEDS: LEVOTHYROXINE 50 MCG TABLET PO SCH (05:18)
[2020-01-27 06:00] VITALS: BP 134/86
[2020-01-27] MEDS: POLYVINYL ALCOHOL/POVIDONE/PF OPHTH SOLUTION DROPERETTE. OU SCH ×3 (09:02→20:01)
[2020-01-27] MEDS: ASPIRIN ENTERIC COATED 81 MG TABLET.DR. PO SCH (09:02)
[2020-01-27] MEDS: DIVALPROEX 125 MG CAP.SPRINK PO SCH ×2 (09:02→20:06)
[2020-01-27] MEDS: BENZTROPINE MESYLATE 1 MG TABLET PO SCH ×2 (09:02→20:04)
[2020-01-27] MEDS: SPIRONOLACTONE 25 MG TABLET PO SCH (09:02)
[2020-01-27] MEDS: LUBIPROSTONE 24 MCG CAPSULE PO SCH ×2 (09:02→18:00)
[2020-01-27] MEDS: ACETAMINOPHEN 325 MG TABLET PO SCH ×3 (09:03→20:04)
[2020-01-27] MEDS: CETIRIZINE HCL 10 MG TABLET PO SCH (09:03)
[2020-01-27] MEDS: NYSTATIN 100,000 UNIT/GM TOPICAL CREAM 15GM TUBE. TP SCH ×2 (09:03→20:01)
[2020-01-27] MEDS: POTASSIUM CHLORIDE 20 MEQ TABLET.ER. PO SCH ×3 (09:03→20:03)
[2020-01-27] MEDS: NYSTATIN TOPICAL POWDER 15GM BOTTLE. TP SCH ×2 (09:03→20:01)
[2020-01-27] MEDS: TOPIRAMATE 100 MG TABLET. PO SCH ×2 (09:03→20:02)
[2020-01-27 16:06] VITALS: BP 165/84
[2020-01-27] MEDS: LATANOPROST 0.005% OPHTH SOLUTION 2.5ML BOTTLE. OU SCH (20:02)
[2020-01-27] MEDS: MIRTAZAPINE ODT 30 MG TAB.RAPDIS. PO SCH (20:03)
[2020-01-27] MEDS: DULoxetine HCL 30 MG CAPSULE.DR PO SCH (20:05)
[2020-01-27] MEDS: QUEtiapine 100 MG TABLET. PO SCH (20:05)
--- NOTE | 2020-01-27 22:58 | PDOC ---
Exam Note: David Note: S/O: This note covers elements not covered in my initial note. The patient was seen on TeleHealth rounds in the evening coordinated and discussed by Lulú KEEN. Discussed the patient with nursing staff, reviewed the chart. The patient slept 7-1/4 hours previous night. Overall the patient has done reasonably well. Seems to have a sense of humor. ROS: Ambulation impaired in wheelchair. No CV, , Pulmonary, Eye system symptoms on review. MSE: Reasonably oriented. Speech coherent. Abstraction fair. Computation impaired. Language function intact. Attention span short. Mood and affect withdrawn. Labs: Reviewed. Imp: Schizoaffective disorder, bipolar type mixed with psychotic features versus bipolar disorder mixed with psychotic features. Rest unchanged. Plan: Continue psychotropics mentioned in my note and no changes for now. Assessment: Vital Signs/I&O: Vital Signs Date Time Temp Pulse Resp B/P (MAP) Pulse Ox O2 Delivery O2 Flow Rate FiO2 01/27/20 16:06 97.8 87 20 165/84 (111) 92 Room Air 01/26/20 16:12 2.0 I & O 01/26/20 01/26/20 01/27/20 14:59 22:59 06:59 Intake Total 600 ml 540 ml Balance 600 ml 540 ml Current Medications: I have reviewed the current psychotropics carefully including drug interactions. Risk benefit ratio favors no change other than as noted in my dictated progress note. Diagnosis: Problems: (1) Schizoaffective disorder, bipolar type (2) Anxiety disorder (3) Schizoaffective disorder, chronic condition with acute exacerbation (4) Impulse control disorder TERRENCE DANIEL MD Jan 27, 2020 22:58
[2020-01-28] MEDS: LEVOTHYROXINE 50 MCG TABLET PO SCH (05:16)
[2020-01-28 06:20] VITALS: BP 124/77
[2020-01-28] MEDS: ACETAMINOPHEN 325 MG TABLET PO SCH ×3 (08:32→20:19)
[2020-01-28] MEDS: ASPIRIN ENTERIC COATED 81 MG TABLET.DR. PO SCH (08:32)
[2020-01-28] MEDS: CETIRIZINE HCL 10 MG TABLET PO SCH (08:32)
[2020-01-28] MEDS: POTASSIUM CHLORIDE 20 MEQ TABLET.ER. PO SCH ×3 (08:32→20:18)
[2020-01-28] MEDS: LUBIPROSTONE 24 MCG CAPSULE PO SCH ×2 (08:33→17:09)
[2020-01-28] MEDS: TOPIRAMATE 100 MG TABLET. PO SCH ×2 (08:33→20:18)
[2020-01-28] MEDS: DIVALPROEX 125 MG CAP.SPRINK PO SCH ×2 (08:33→20:18)
[2020-01-28] MEDS: POLYVINYL ALCOHOL/POVIDONE/PF OPHTH SOLUTION DROPERETTE. OU SCH ×3 (08:33→20:19)
[2020-01-28] MEDS: NYSTATIN TOPICAL POWDER 15GM BOTTLE. TP SCH ×2 (08:34→20:17)
[2020-01-28] MEDS: BENZTROPINE MESYLATE 1 MG TABLET PO SCH ×2 (08:34→20:19)
[2020-01-28] MEDS: SPIRONOLACTONE 25 MG TABLET PO SCH (08:34)
[2020-01-28] MEDS: NYSTATIN 100,000 UNIT/GM TOPICAL CREAM 15GM TUBE. TP SCH ×2 (08:34→20:17)
[2020-01-28 15:34] VITALS: BP 129/81
[2020-01-28] MEDS: QUEtiapine 100 MG TABLET. PO SCH (20:18)
[2020-01-28] MEDS: MIRTAZAPINE ODT 30 MG TAB.RAPDIS. PO SCH (20:19)
[2020-01-28] MEDS: DULoxetine HCL 30 MG CAPSULE.DR PO SCH (20:19)
[2020-01-28] MEDS: LATANOPROST 0.005% OPHTH SOLUTION 2.5ML BOTTLE. OU SCH (20:23)
--- NOTE | 2020-01-28 22:01 | PDOC ---
Exam Note: David Note: Please also refer to the separate dictated note~for this date of service dictated separately. Discussed the patient with Nursing staff reviewed the chart.~Reviewed interim history and current functioning. Reviewed vital signs,~Labs/ Radiology~and current medications noted below. Continue current treatment with the changes noted in the dictated addendum note Assessment: Vital Signs/I&O: Vital Signs Date Time Temp Pulse Resp B/P (MAP) Pulse Ox O2 Delivery O2 Flow Rate FiO2 01/28/20 15:34 97.9 78 18 129/81 (97) 96 01/28/20 06:20 Nasal Cannula 2.5 I & O 01/27/20 01/27/20 01/28/20 15:00 23:00 07:00 Intake Total 960 ml 720 ml Balance 960 ml 720 ml Current Medications: I have reviewed the current psychotropics carefully including drug interactions. Risk benefit ratio favors no change other than as noted in my dictated progress note. Diagnosis: Problems: (1) Schizoaffective disorder, bipolar type (2) Anxiety disorder (3) Schizoaffective disorder, chronic condition with acute exacerbation (4) Impulse control disorder TERRENCE DANIEL MD Jan 28, 2020 22:01
[2020-01-29] MEDS: LEVOTHYROXINE 50 MCG TABLET PO SCH (06:00)
[2020-01-29 06:24] VITALS: BP 140/81
[2020-01-29] MEDS: metOLazone 5 MG TABLET PO SCH (09:49)
[2020-01-29] MEDS: TOPIRAMATE 100 MG TABLET. PO SCH ×2 (09:49→20:25)
[2020-01-29] MEDS: DIVALPROEX 125 MG CAP.SPRINK PO SCH ×2 (09:50→20:26)
[2020-01-29] MEDS: LUBIPROSTONE 24 MCG CAPSULE PO SCH ×2 (09:51→18:18)
[2020-01-29] MEDS: ACETAMINOPHEN 325 MG TABLET PO SCH ×3 (09:51→20:25)
[2020-01-29] MEDS: CETIRIZINE HCL 10 MG TABLET PO SCH (09:51)
[2020-01-29] MEDS: ASPIRIN ENTERIC COATED 81 MG TABLET.DR. PO SCH (09:51)
[2020-01-29] MEDS: POTASSIUM CHLORIDE 20 MEQ TABLET.ER. PO SCH ×3 (09:51→20:26)
[2020-01-29] MEDS: BENZTROPINE MESYLATE 1 MG TABLET PO SCH ×2 (09:52→20:26)
[2020-01-29] MEDS: NYSTATIN 100,000 UNIT/GM TOPICAL CREAM 15GM TUBE. TP SCH ×2 (09:52→20:35)
[2020-01-29] MEDS: SPIRONOLACTONE 25 MG TABLET PO SCH (09:52)
[2020-01-29] MEDS: NYSTATIN TOPICAL POWDER 15GM BOTTLE. TP SCH ×2 (09:52→20:30)
[2020-01-29] MEDS: POLYVINYL ALCOHOL/POVIDONE/PF OPHTH SOLUTION DROPERETTE. OU SCH ×3 (09:52→20:27)
--- NOTE | 2020-01-29 10:43 | PDOC ---
Exam Note: David Note: S/O: This note is a late entry for DOS 01/28/2020 covers elements not covered in my initial note. The patient was seen on TeleHealth rounds coordinated by Dasha KEEN in the evening. Discussed the patient with nursing staff, reviewed the chart. Nursing report was with Estrella KEEN in the morning. The patient slept 8 hours previous night. She has been spending more time in the dayroom, pleasant, cooperative, has a sense of humor. ROS: Ambulation impaired in wheelchair. No CV, , Pulmonary, Eye system symptoms on review. MSE: Oriented reasonably. Speech has some latency, coherent. Abstraction fair. Computation impaired. Language function intact. Attention span short. Mood and affect withdrawn at times but more forthcoming at other times. Labs: Reviewed. Imp: Schizoaffective disorder, bipolar type mixed with psychotic features versus bipolar disorder mixed with psychotic features. Rest unchanged. Plan: Continue psychotropics mentioned in this note. Adjust as clinically indicated. Assessment: Vital Signs/I&O: Vital Signs Date Time Temp Pulse Resp B/P (MAP) Pulse Ox O2 Delivery O2 Flow Rate FiO2 01/29/20 06:24 97.5 79 18 140/81 (100) 94 01/28/20 06:20 Nasal Cannula 2.5 I & O 01/28/20 01/28/20 01/29/20 15:00 23:00 07:00 Intake Total 960 ml 600 ml Balance 960 ml 600 ml Current Medications: I have reviewed the current psychotropics carefully including drug interactions. Risk benefit ratio favors no change other than as noted in my dictated progress note. Diagnosis: Problems: (1) Schizoaffective disorder, bipolar type (2) Anxiety disorder (3) Schizoaffective disorder, chronic condition with acute exacerbation (4) Impulse control disorder TERRENCE DANIEL MD Jan 29, 2020 10:43
[2020-01-29 15:39] VITALS: BP 135/84
[2020-01-29] MEDS: QUEtiapine 100 MG TABLET. PO SCH (20:23)
[2020-01-29] MEDS: LATANOPROST 0.005% OPHTH SOLUTION 2.5ML BOTTLE. OU SCH (20:24)
[2020-01-29] MEDS: DULoxetine HCL 30 MG CAPSULE.DR PO SCH (20:25)
[2020-01-29] MEDS: MIRTAZAPINE ODT 30 MG TAB.RAPDIS. PO SCH (20:26)
--- NOTE | 2020-01-29 21:58 | PDOC ---
Exam Note: David Note: Please also refer to the separate dictated note~for this date of service dictated separately.~Patient seen individually. Discussed the patient with Nursing staff reviewed the chart.~Reviewed interim history and current functioning. Reviewed vital signs,~Labs/ Radiology~and current medications noted below. Continue current treatment with the changes noted in the dictated addendum note Assessment: Vital Signs/I&O: Vital Signs Date Time Temp Pulse Resp B/P (MAP) Pulse Ox O2 Delivery O2 Flow Rate FiO2 01/29/20 15:39 98.0 85 16 135/84 (101) 95 01/28/20 06:20 Nasal Cannula 2.5 I & O 01/28/20 01/28/20 01/29/20 15:00 23:00 07:00 Intake Total 960 ml 600 ml Balance 960 ml 600 ml Current Medications: I have reviewed the current psychotropics carefully including drug interactions. Risk benefit ratio favors no change other than as noted in my dictated progress note. Diagnosis: Problems: (1) Schizoaffective disorder, bipolar type (2) Anxiety disorder (3) Schizoaffective disorder, chronic condition with acute exacerbation (4) Impulse control disorder TERRENCE DANIEL MD Jan 29, 2020 21:57
[2020-01-30] MEDS: LEVOTHYROXINE 50 MCG TABLET PO SCH (05:00)
[2020-01-30 05:56] VITALS: BP 149/79
[2020-01-30] MEDS: POLYVINYL ALCOHOL/POVIDONE/PF OPHTH SOLUTION DROPERETTE. OU SCH ×3 (09:16→20:03)
[2020-01-30] MEDS: DIVALPROEX 125 MG CAP.SPRINK PO SCH ×2 (09:16→20:05)
[2020-01-30] MEDS: TOPIRAMATE 100 MG TABLET. PO SCH ×2 (09:17→20:05)
[2020-01-30] MEDS: ACETAMINOPHEN 325 MG TABLET PO SCH ×3 (09:18→20:06)
[2020-01-30] MEDS: BENZTROPINE MESYLATE 1 MG TABLET PO SCH ×2 (09:18→20:06)
[2020-01-30] MEDS: SPIRONOLACTONE 25 MG TABLET PO SCH (09:18)
[2020-01-30] MEDS: LUBIPROSTONE 24 MCG CAPSULE PO SCH ×2 (09:18→17:03)
[2020-01-30] MEDS: ASPIRIN ENTERIC COATED 81 MG TABLET.DR. PO SCH (09:18)
[2020-01-30] MEDS: NYSTATIN TOPICAL POWDER 15GM BOTTLE. TP SCH ×2 (09:19→20:07)
[2020-01-30] MEDS: CETIRIZINE HCL 10 MG TABLET PO SCH (09:19)
[2020-01-30] MEDS: NYSTATIN 100,000 UNIT/GM TOPICAL CREAM 15GM TUBE. TP SCH ×2 (09:19→20:07)
[2020-01-30] MEDS: POTASSIUM CHLORIDE 20 MEQ TABLET.ER. PO SCH ×3 (09:19→20:05)
--- NOTE | 2020-01-30 10:38 | PDOC ---
Exam Note: David Note: S/O: This note is a late entry for DOS 01/29/2020 covers elements not covered in my initial note. We have had exposure of COVID-19 on the unit consequent to a staff member. The unit was on lockdown per [facility] ([facility])/Centers for Disease Control (CDC). Three patients had dev eloped fever and other symptoms for which they were screened for the COVID-19, two of which have come back negative, result for one is awaited and one other patient today is running a fever and we are doing a COVID-19 screen for this patient. Per regulations from the CDC/[facility], we are unable to admit or discharge any patients, still all of this is negative and the length of stay has affected not entirely by the clinical situation but by this directive additionally from the [facility]/CDC. The patient was seen on TeleHealth rounds coordinated by Estrella KEEN in the evening. Discussed the patient with nursing staff, reviewed the chart. Nursing report was with Estrella KEEN in the morning. The patient slept 5-1/4 hours previous night. Overall patient has been fairly appropriate on the unit. She is talking about moving into the home with one of the other female patients who will be going home and somewhat limited insight into her inability to take care of herself in such a situation. ROS: Ambulation impaired in wheelchair. No CV, , Pulmonary, Eye system symptoms on review. MSE: Oriented reasonably. Speech coherent. Abstraction fair. Computation impaired. Mood and affect withdrawn improved. She was smiling, quite appropriate during the visit. Labs: Reviewed. Imp: Schizoaffective disorder, bipolar type versus bipolar disorder mixed with psychotic features. Major depressive disorder. Anxiety disorder unspecified. Impulse control disorder unspecified. Plan: No change from initial note. Assessment: Vital Signs/I&O: Vital Signs Date Time Temp Pulse Resp B/P (MAP) Pulse Ox O2 Delivery O2 Flow Rate FiO2 01/30/20 05:56 97.9 80 20 149/79 (102) 95 01/28/20 06:20 Nasal Cannula 2.5 I & O 01/29/20 01/29/20 01/30/20 15:00 23:00 07:00 Intake Total 960 ml 480 ml Balance 960 ml 480 ml Current Medications: I have reviewed the current psychotropics carefully including drug interactions. Risk benefit ratio favors no change other than as noted in my dictated progress note. Diagnosis: Problems: (1) Schizoaffective disorder, bipolar type (2) Anxiety disorder (3) Schizoaffective disorder, chronic condition with acute exacerbation (4) Impulse control disorder TERRENCE DANIEL MD Jan 30, 2020 10:38
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
[2020-01-30 16:02] VITALS: BP 134/83
[2020-01-30] MEDS: LATANOPROST 0.005% OPHTH SOLUTION 2.5ML BOTTLE. OU SCH (20:03)
[2020-01-30] MEDS: MIRTAZAPINE ODT 30 MG TAB.RAPDIS. PO SCH (20:04)
[2020-01-30] MEDS: DULoxetine HCL 30 MG CAPSULE.DR PO SCH (20:05)
[2020-01-30] MEDS: QUEtiapine 100 MG TABLET. PO SCH (20:06)
--- NOTE | 2020-01-30 22:02 | PDOC ---
Exam Note: David Note: Please also refer to the separate dictated note~for this date of service dictated separately.~Patient seen individually. Discussed the patient with Nursing staff reviewed the chart.~Reviewed interim history and current functioning. Reviewed vital signs,~Labs/ Radiology~and current medications noted below. Continue current treatment with the changes noted in the dictated addendum note Assessment: Vital Signs/I&O: Vital Signs Date Time Temp Pulse Resp B/P (MAP) Pulse Ox O2 Delivery O2 Flow Rate FiO2 01/30/20 18:30 98.1 01/30/20 16:02 78 16 134/83 (100) 95 01/28/20 06:20 Nasal Cannula 2.5 I & O 01/29/20 01/29/20 01/30/20 15:00 23:00 07:00 Intake Total 960 ml 480 ml Balance 960 ml 480 ml Current Medications: I have reviewed the current psychotropics carefully including drug interactions. Risk benefit ratio favors no change other than as noted in my dictated progress note. Diagnosis: Problems: (1) Schizoaffective disorder, bipolar type (2) Anxiety disorder (3) Schizoaffective disorder, chronic condition with acute exacerbation (4) Impulse control disorder TERRENCE DANIEL MD Jan 30, 2020 22:02
[2020-01-31] MEDS: LEVOTHYROXINE 50 MCG TABLET PO SCH (05:20)
[2020-01-31 06:12] VITALS: BP 131/77
[2020-01-31] MEDS: DIVALPROEX 125 MG CAP.SPRINK PO SCH ×2 (09:29→21:11)
[2020-01-31] MEDS: POTASSIUM CHLORIDE 20 MEQ TABLET.ER. PO SCH ×3 (09:29→21:11)
[2020-01-31] MEDS: TOPIRAMATE 100 MG TABLET. PO SCH ×2 (09:29→21:12)
[2020-01-31] MEDS: BENZTROPINE MESYLATE 1 MG TABLET PO SCH ×2 (09:29→21:12)
[2020-01-31] MEDS: ASPIRIN ENTERIC COATED 81 MG TABLET.DR. PO SCH (09:29)
[2020-01-31] MEDS: LUBIPROSTONE 24 MCG CAPSULE PO SCH ×2 (09:30→17:22)
[2020-01-31] MEDS: CETIRIZINE HCL 10 MG TABLET PO SCH (09:30)
[2020-01-31] MEDS: ACETAMINOPHEN 325 MG TABLET PO SCH ×3 (09:30→21:11)
[2020-01-31] MEDS: SPIRONOLACTONE 25 MG TABLET PO SCH (09:31)
[2020-01-31] MEDS: POLYVINYL ALCOHOL/POVIDONE/PF OPHTH SOLUTION DROPERETTE. OU SCH ×3 (09:31→21:10)
[2020-01-31] MEDS: NYSTATIN TOPICAL POWDER 15GM BOTTLE. TP SCH ×2 (09:31→21:29)
[2020-01-31] MEDS: NYSTATIN 100,000 UNIT/GM TOPICAL CREAM 15GM TUBE. TP SCH ×2 (09:32→21:29)
--- NOTE | 2020-01-31 12:58 | PDOC ---
Exam Note: David Note: S/O: This note is a late entry for DOS 01/30/2020 covers elements not covered in my initial note. We are still waiting on the COVID-19 screen on two patients before the unit can be opened for admissions and discharges per the [facility] ([facility])/Centers for Disease Control (CDC). Discussed the patient with nursing staff, reviewed the chart. Treatment team meeting was done in the morning with social service staff [facility] in [facility], Estrella KEEN, nursing staff and myself. The patient was seen on audio- visual rounds in the evening with Dasha KEEN. Patient has been calmer, less anxious. She has been talking about taking an apartment for rent with one of the other ladys who is a patient on the unit. We addressed this and that she would be returning back to her fdc. She is compliant with medications. She has had two loose stools, may need workup for C. diff. We will defer her to Dr. Bragg/Dr. Coelho. ROS: Ambulation impaired in wheelchair. No CV, , Pulmonary, Eye system symptoms on review. MSE: Oriented reasonably. Speech coherent. Abstraction fair. Language function intact. She is pleasant, smiling as I met with her in the evening. Labs: Reviewed. Imp: Schizoaffective disorder, bipolar type versus bipolar disorder mixed with psychotic features. Major depressive disorder. Anxiety disorder unspecified. Impulse control disorder unspecified. Plan: No change from initial note with potential transition to fdc once the unit is open after the COVID-19 restrictions are lifted. Assessment: Vital Signs/I&O: Vital Signs Date Time Temp Pulse Resp B/P (MAP) Pulse Ox O2 Delivery O2 Flow Rate FiO2 01/31/20 06:12 97.4 76 20 131/77 (95) 94 01/28/20 06:20 Nasal Cannula 2.5 I & O 01/30/20 01/30/20 01/31/20 15:00 23:00 07:00 Intake Total 600 ml 480 ml Balance 600 ml 480 ml Current Medications: I have reviewed the current psychotropics carefully including drug interactions. Risk benefit ratio favors no change other than as noted in my dictated progress note. Diagnosis: Problems: (1) Schizoaffective disorder, bipolar type (2) Anxiety disorder (3) Schizoaffective disorder, chronic condition with acute exacerbation (4) Impulse control disorder TERRENCE DANIEL MD Jan 31, 2020 12:58
[2020-01-31 16:20] VITALS: BP 133/59
[2020-01-31] MEDS: LATANOPROST 0.005% OPHTH SOLUTION 2.5ML BOTTLE. OU SCH (21:10)
[2020-01-31] MEDS: DULoxetine HCL 30 MG CAPSULE.DR PO SCH (21:11)
[2020-01-31] MEDS: MIRTAZAPINE ODT 30 MG TAB.RAPDIS. PO SCH (21:11)
[2020-01-31] MEDS: QUEtiapine 100 MG TABLET. PO SCH (21:13)
--- NOTE | 2020-01-31 22:03 | PDOC ---
Exam Note: David Note: Please also refer to the separate dictated note~for this date of service dictated separately.~Patient seen individually. Discussed the patient with Nursing staff reviewed the chart.~Reviewed interim history and current functioning. Reviewed vital signs,~Labs/ Radiology~and current medications noted below. Continue current treatment with the changes noted in the dictated addendum note Assessment: Vital Signs/I&O: Vital Signs Date Time Temp Pulse Resp B/P (MAP) Pulse Ox O2 Delivery O2 Flow Rate FiO2 01/31/20 16:20 98.4 60 20 133/59 (83) 97 Nasal Cannula 2.5 I & O 01/30/20 01/30/20 01/31/20 15:00 23:00 07:00 Intake Total 600 ml 480 ml Balance 600 ml 480 ml Current Medications: I have reviewed the current psychotropics carefully including drug interactions. Risk benefit ratio favors no change other than as noted in my dictated progress note. Diagnosis: Problems: (1) Schizoaffective disorder, bipolar type (2) Anxiety disorder (3) Schizoaffective disorder, chronic condition with acute exacerbation (4) Impulse control disorder TERRENCE DANIEL MD Jan 31, 2020 22:03
[2020-02-01] MEDS: LEVOTHYROXINE 50 MCG TABLET PO SCH (05:01)
[2020-02-01 05:53] VITALS: BP 134/84
[2020-02-01] MEDS: POLYVINYL ALCOHOL/POVIDONE/PF OPHTH SOLUTION DROPERETTE. OU SCH ×3 (08:29→20:26)
[2020-02-01] MEDS: LUBIPROSTONE 24 MCG CAPSULE PO SCH ×2 (08:29→17:20)
[2020-02-01] MEDS: ASPIRIN ENTERIC COATED 81 MG TABLET.DR. PO SCH (08:30)
[2020-02-01] MEDS: BENZTROPINE MESYLATE 1 MG TABLET PO SCH ×2 (08:30→20:27)
[2020-02-01] MEDS: POTASSIUM CHLORIDE 20 MEQ TABLET.ER. PO SCH ×3 (08:30→20:27)
[2020-02-01] MEDS: SPIRONOLACTONE 25 MG TABLET PO SCH (08:30)
[2020-02-01] MEDS: TOPIRAMATE 100 MG TABLET. PO SCH ×2 (08:30→20:28)
[2020-02-01] MEDS: DIVALPROEX 125 MG CAP.SPRINK PO SCH ×2 (08:30→20:28)
[2020-02-01] MEDS: CETIRIZINE HCL 10 MG TABLET PO SCH (08:31)
[2020-02-01] MEDS: ACETAMINOPHEN 325 MG TABLET PO SCH ×3 (08:31→20:27)
[2020-02-01] MEDS: NYSTATIN 100,000 UNIT/GM TOPICAL CREAM 15GM TUBE. TP SCH ×2 (08:31→20:29)
[2020-02-01] MEDS: NYSTATIN TOPICAL POWDER 15GM BOTTLE. TP SCH ×2 (08:31→20:26)
[2020-02-01 16:12] VITALS: BP 147/78
[2020-02-01] MEDS: MIRTAZAPINE ODT 30 MG TAB.RAPDIS. PO SCH (20:27)
[2020-02-01] MEDS: DULoxetine HCL 30 MG CAPSULE.DR PO SCH (20:27)
[2020-02-01] MEDS: QUEtiapine 100 MG TABLET. PO SCH (20:28)
[2020-02-01] MEDS: LATANOPROST 0.005% OPHTH SOLUTION 2.5ML BOTTLE. OU SCH (20:29)
--- NOTE | 2020-02-01 21:49 | PDOC ---
Exam Note: David Note: S/O: This note is a late entry for DOS 01/31/2020 covers elements not covered in my initial note. Discussed the patient with nursing staff, reviewed the chart. The patient was seen on audio-visual rounds in the evening with Adid KEEN. Nursing report was with Estrella KEEN. Patient is pleasant and smiling. ROS: Ambulation impaired in wheelchair. No CV, , Pulmonary, Eye system symptoms on review. MSE: Oriented reasonably. Speech coherent. Abstraction fair. Language function intact. Labs: Reviewed. Imp: Schizoaffective disorder, bipolar type versus bipolar disorder mixed with psychotic features. Major depressive disorder. Anxiety disorder unspecified. Impulse control disorder unspecified. Plan: Continue psychotropics unchanged from initial note. Assessment: Vital Signs/I&O: Vital Signs Date Time Temp Pulse Resp B/P (MAP) Pulse Ox O2 Delivery O2 Flow Rate FiO2 02/01/20 16:12 98.7 82 18 147/78 (101) 93 2.0 02/01/20 08:34 Nasal Cannula I & O 01/31/20 01/31/20 02/01/20 15:00 23:00 07:00 Intake Total 840 ml 720 ml Balance 840 ml 720 ml Current Medications: I have reviewed the current psychotropics carefully including drug interactions. Risk benefit ratio favors no change other than as noted in my dictated progress note. Diagnosis: Problems: (1) Schizoaffective disorder, bipolar type (2) Anxiety disorder (3) Schizoaffective disorder, chronic condition with acute exacerbation (4) Impulse control disorder TERRENCE DANIEL MD Feb 01, 2020 21:49
--- NOTE | 2020-02-01 22:01 | PDOC ---
Exam Note: David Note: Please also refer to the separate dictated note~for this date of service dictated separately.~Patient seen individually. Discussed the patient with Nursing staff reviewed the chart.~Reviewed interim history and current functioning. Reviewed vital signs,~Labs/ Radiology~and current medications noted below. Continue current treatment with the changes noted in the dictated addendum note Assessment: Vital Signs/I&O: Vital Signs Date Time Temp Pulse Resp B/P (MAP) Pulse Ox O2 Delivery O2 Flow Rate FiO2 02/01/20 16:12 98.7 82 18 147/78 (101) 93 2.0 02/01/20 08:34 Nasal Cannula I & O 01/31/20 01/31/20 02/01/20 15:00 23:00 07:00 Intake Total 840 ml 720 ml Balance 840 ml 720 ml Current Medications: I have reviewed the current psychotropics carefully including drug interactions. Risk benefit ratio favors no change other than as noted in my dictated progress note. Diagnosis: Problems: (1) Schizoaffective disorder, bipolar type (2) Anxiety disorder (3) Schizoaffective disorder, chronic condition with acute exacerbation (4) Impulse control disorder TERRENCE DANIEL MD Feb 01, 2020 22:01
[2020-02-02] MEDS: LEVOTHYROXINE 50 MCG TABLET PO SCH (05:24)
[2020-02-02 06:06] VITALS: BP 125/82
[2020-02-02 06:32] LABS: BASO % 1 % (0-3); EOS # 0.2 x10^3/uL (0.0-0.7); EOS % 3 % (0-3); HEMATOCRIT 38.7 % (36.0-47.0); HEMOGLOBIN 12.6 g/dL (12.0-15.5); LYMPH # 1.2 x10^3/uL (1.0-4.8); LYMPH % 23 % (24-48); MEAN CORPUSCULAR HEMOGLOBIN 30 pg (25-35); MEAN CORPUSCULAR HGB CONC 33 g/dL (31-37); MEAN CORPUSCULAR VOLUME 93 fL (79-100); MONO # 0.5 x10^3/uL (0.0-1.1); MONO % 10 % (0-9); NEUT # 3.3 x10^3uL (1.8-7.7); NEUT % 63 % (31-73); PLATELET COUNT 125 x10^3/uL (140-400); RED BLOOD COUNT 4.17 x10^6/uL (3.50-5.40); RED CELL DISTRIBUTION WIDTH 14.9 % (11.5-14.5); WHITE BLOOD COUNT 5.3 x10^3/uL (4.0-11.0)
[2020-02-02 06:46] LABS: ALBUMIN 2.5 g/dL (3.4-5.0); ALBUMIN/GLOBULIN RATIO 0.6 (1.0-1.7); CALCIUM 7.9 mg/dL (8.5-10.1); CREATININE 0.8 mg/dL (0.6-1.0); GFR 71.5; MAGNESIUM 1.9 mg/dL (1.8-2.4); POTASSIUM 4.3 mmol/L (3.5-5.1); TOTAL BILIRUBIN 0.3 mg/dL (0.2-1.0); TOTAL PROTEIN 6.7 g/dL (6.4-8.2)
[2020-02-02] MEDS: CETIRIZINE HCL 10 MG TABLET PO SCH (08:43)
[2020-02-02] MEDS: NYSTATIN 100,000 UNIT/GM TOPICAL CREAM 15GM TUBE. TP SCH ×2 (08:43→20:37)
[2020-02-02] MEDS: SPIRONOLACTONE 25 MG TABLET PO SCH (08:44)
[2020-02-02] MEDS: POTASSIUM CHLORIDE 20 MEQ TABLET.ER. PO SCH ×3 (08:44→20:37)
[2020-02-02] MEDS: ACETAMINOPHEN 325 MG TABLET PO SCH ×3 (08:44→20:35)
[2020-02-02] MEDS: ASPIRIN ENTERIC COATED 81 MG TABLET.DR. PO SCH (08:44)
[2020-02-02] MEDS: TOPIRAMATE 100 MG TABLET. PO SCH ×2 (08:45→20:36)
[2020-02-02] MEDS: DIVALPROEX 125 MG CAP.SPRINK PO SCH ×2 (08:45→20:35)
[2020-02-02] MEDS: LUBIPROSTONE 24 MCG CAPSULE PO SCH ×2 (08:46→17:18)
[2020-02-02] MEDS: BENZTROPINE MESYLATE 1 MG TABLET PO SCH ×2 (08:46→20:37)
[2020-02-02] MEDS: POLYVINYL ALCOHOL/POVIDONE/PF OPHTH SOLUTION DROPERETTE. OU SCH ×3 (08:46→20:35)
[2020-02-02] MEDS: NYSTATIN TOPICAL POWDER 15GM BOTTLE. TP SCH ×2 (09:00→20:35)
[2020-02-02 16:03] VITALS: BP 129/82
[2020-02-02] MEDS: LATANOPROST 0.005% OPHTH SOLUTION 2.5ML BOTTLE. OU SCH (20:35)
[2020-02-02] MEDS: DULoxetine HCL 30 MG CAPSULE.DR PO SCH (20:36)
[2020-02-02] MEDS: QUEtiapine 100 MG TABLET. PO SCH (20:36)
[2020-02-02] MEDS: MIRTAZAPINE ODT 30 MG TAB.RAPDIS. PO SCH (20:37)
[2020-02-03] MEDS: LEVOTHYROXINE 50 MCG TABLET PO SCH (05:11)
[2020-02-03 06:20] VITALS: BP 117/73
[2020-02-03] MEDS: NYSTATIN 100,000 UNIT/GM TOPICAL CREAM 15GM TUBE. TP SCH ×2 (08:35→20:46)
[2020-02-03] MEDS: SPIRONOLACTONE 25 MG TABLET PO SCH (08:36)
[2020-02-03] MEDS: POLYVINYL ALCOHOL/POVIDONE/PF OPHTH SOLUTION DROPERETTE. OU SCH ×3 (08:36→20:43)
[2020-02-03] MEDS: NYSTATIN TOPICAL POWDER 15GM BOTTLE. TP SCH ×2 (08:36→20:43)
[2020-02-03] MEDS: TOPIRAMATE 100 MG TABLET. PO SCH ×2 (08:36→20:44)
[2020-02-03] MEDS: ASPIRIN ENTERIC COATED 81 MG TABLET.DR. PO SCH (08:36)
[2020-02-03] MEDS: LUBIPROSTONE 24 MCG CAPSULE PO SCH ×2 (08:36→17:04)
[2020-02-03] MEDS: BENZTROPINE MESYLATE 1 MG TABLET PO SCH ×2 (08:36→20:46)
--- NOTE | 2020-02-03 08:36 | PDOC ---
Exam Note: David Note: S/O: This note is a late entry for DOS 02/01/2020 covers elements not covered in my initial note. Discussed the patient with nursing staff, reviewed the chart. The patient was seen on audio-visual rounds in the evening with Addi KEEN. Nursing report was with Lulú KEEN. Previous night patient was quite irrit able but compliant during the day. ROS: Ambulation impaired in wheelchair. No CV, , Pulmonary, Eye, ENT system symptoms on review. MSE: Oriented reasonably. Speech coherent. Abstraction fair. Computation impaired. Language function intact. Attention span short. Mood and affect somewhat anxious, labile but improved. Labs: Reviewed. Imp: Schizoaffective disorder, bipolar type versus bipolar disorder mixed with psychotic features. Major depressive disorder. Anxiety disorder unspecified. Impulse control disorder unspecified. Plan: Continue psychotropics unchanged from initial note. Assessment: Vital Signs/I&O: Vital Signs Date Time Temp Pulse Resp B/P (MAP) Pulse Ox O2 Delivery O2 Flow Rate FiO2 02/03/20 06:20 98.2 89 20 117/73 (88) 92 2.0 02/01/20 08:34 Nasal Cannula I & O 02/02/20 02/02/20 02/03/20 15:00 23:00 07:00 Intake Total 1200 ml 480 ml 240 ml Balance 1200 ml 480 ml 240 ml Current Medications: I have reviewed the current psychotropics carefully including drug interactions. Risk benefit ratio favors no change other than as noted in my dictated progress note. Diagnosis: Problems: (1) Schizoaffective disorder, bipolar type (2) Acute UTI (3) Anxiety disorder (4) Schizoaffective disorder, chronic condition with acute exacerbation (5) Impulse control disorder TERRENCE DANIEL MD Feb 03, 2020 08:36
[2020-02-03] MEDS: DIVALPROEX 125 MG CAP.SPRINK PO SCH ×2 (08:37→20:45)
[2020-02-03] MEDS: CETIRIZINE HCL 10 MG TABLET PO SCH (08:37)
[2020-02-03] MEDS: POTASSIUM CHLORIDE 20 MEQ TABLET.ER. PO SCH ×3 (08:37→20:45)
[2020-02-03] MEDS: ACETAMINOPHEN 325 MG TABLET PO SCH ×3 (08:37→20:45)
[2020-02-03] MEDS: HYDROcodone/APAP 5/325MG 1 TAB TABLET PO PRN (08:43)
--- NOTE | 2020-02-03 09:02 | PDOC ---
Exam Note: David Note: S/O: This note is a late entry for DOS 02/02/2020covers elements not covered in my initial note. Discussed the patient with nursing staff, reviewed the chart. The patient was seen on audio-visual rounds in the evening with Modesta KEEN. Nursing report was with Jass KEEN. Patient has been somewhat irritable, some what obsessive, wanting her meds in vanilla pudding. ROS: Ambulation impaired in wheelchair. No CV, , Pulmonary, Eye, ENT system symptoms on review. MSE: Oriented reasonably. Speech coherent. Abstraction fair. Computation impaired. Language function intact. Attention span short. Mood and affect somewhat anxious, labile but improved. Labs: Reviewed. Imp: Schizoaffective disorder, bipolar type versus bipolar disorder mixed with psychotic features. Major depressive disorder. Anxiety disorder unspecified. Impulse control disorder unspecified. Plan: Continue psychotropics unchanged from initial note. Assessment: Vital Signs/I&O: Vital Signs Date Time Temp Pulse Resp B/P (MAP) Pulse Ox O2 Delivery O2 Flow Rate FiO2 02/03/20 08:43 92 02/03/20 06:20 98.2 89 20 117/73 (88) 2.0 02/01/20 08:34 Nasal Cannula I & O 02/02/20 02/02/20 02/03/20 14:59 22:59 06:59 Intake Total 1200 ml 480 ml 240 ml Balance 1200 ml 480 ml 240 ml Current Medications: I have reviewed the current psychotropics carefully including drug interactions. Risk benefit ratio favors no change other than as noted in my dictated progress note. Diagnosis: Problems: (1) Schizoaffective disorder, bipolar type (2) Anxiety disorder (3) Schizoaffective disorder, chronic condition with acute exacerbation (4) Impulse control disorder TERRENCE DANIEL MD Feb 03, 2020 09:02
[2020-02-03 15:42] VITALS: BP 115/66
[2020-02-03 17:23] LABS: BILIRUBIN,URINE NEG (NEG); CLARITY,URINE HAZY; COLOR,URINE YELLOW; GLUCOSE,URINE NEG (NEG)
[2020-02-03 17:24] LABS: BACTERIA,URINE MOD /HPF (0-FEW); NITRITE,URINE NEG (NEG); SQUAMOUS EPITHELIAL CELL,UR FEW /LPF; UROBILINOGEN,URINE 0.2 mg/dL (0.2 mg/dL); WBC,URINE >40 /HPF (0-4)
[2020-02-03] MEDS: LATANOPROST 0.005% OPHTH SOLUTION 2.5ML BOTTLE. OU SCH (20:43)
[2020-02-03] MEDS: MIRTAZAPINE ODT 30 MG TAB.RAPDIS. PO SCH (20:44)
[2020-02-03] MEDS: QUEtiapine 100 MG TABLET. PO SCH (20:45)
[2020-02-03] MEDS: DULoxetine HCL 30 MG CAPSULE.DR PO SCH (20:45)
--- NOTE | 2020-02-03 22:08 | RAD ---
CHEST AP ONLY 02/03/2020 9:02 PM INDICATION: Wheezing, productive cough COMPARISON: 01/19/2020 TECHNIQUE: Portable frontal view of the chest is provided. FINDINGS: The cardiomediastinal silhouette is similar in appearance. Unknown metallic density projects over the left mid chest, possibly external to the patient. Lungs are otherwise clear. There are no significant pleural effusions. There is no pulmonary vascular congestion. No pneumothorax. IMPRESSION: There is no acute cardiopulmonary process. Electronically signed by: Stefanie Alfaro MD (02/03/2020 10:05 PM) [facility]
--- NOTE | 2020-02-03 22:14 | PDOC ---
Exam Note: David Note: Please also refer to the separate dictated note~for this date of service dictated separately.~Patient seen individually. Discussed the patient with Nursing staff reviewed the chart.~Reviewed interim history and current functioning. Reviewed vital signs,~Labs/ Radiology~and current medications noted below. Continue current treatment with the changes noted in the dictated addendum note Assessment: Vital Signs/I&O: Vital Signs Date Time Temp Pulse Resp B/P (MAP) Pulse Ox O2 Delivery O2 Flow Rate FiO2 02/03/20 15:42 98.3 71 18 115/66 (82) 94 Nasal Cannula 2.0 I & O 02/02/20 02/02/20 02/03/20 15:00 23:00 07:00 Intake Total 1200 ml 480 ml 240 ml Balance 1200 ml 480 ml 240 ml Labs: Laboratory Tests Test 02/03/20 16:49 Urine Collection Type Void Urine Color Yellow Urine Clarity Hazy Urine pH 7.0 Urine Specific [place] 1.020 Urine Protein Neg (NEG-TRACE) Urine Glucose (UA) Neg mg/dL (NEG) Urine Ketones (Stick) Neg mg/dL (NEG) Urine Blood Trace (NEG) Urine Nitrite Neg (NEG) Urine Bilirubin Neg (NEG) Urine Urobilinogen Dipstick 0.2 mg/dL (0.2 mg/dL) Urine Leukocyte Esterase Mod (NEG) Urine RBC 1-2 /HPF (0-2) Urine WBC >40 /HPF (0-4) Urine Squamous Epithelial Cells Few /LPF Urine Bacteria Mod /HPF (0-FEW) Current Medications: I have reviewed the current psychotropics carefully including drug interactions. Risk benefit ratio favors no change other than as noted in my dictated progress note. Diagnosis: Problems: (1) Schizoaffective disorder, bipolar type (2) Anxiety disorder (3) Schizoaffective disorder, chronic condition with acute exacerbation (4) Impulse control disorder TERRENCE DANIEL MD Feb 03, 2020 22:14
[2020-02-04] MEDS: LEVOTHYROXINE 50 MCG TABLET PO SCH (06:05)
[2020-02-04 06:21] VITALS: BP 139/80
[2020-02-04] MEDS: POLYVINYL ALCOHOL/POVIDONE/PF OPHTH SOLUTION DROPERETTE. OU SCH ×3 (09:17→19:55)
[2020-02-04] MEDS: DIVALPROEX 125 MG CAP.SPRINK PO SCH ×2 (09:17→19:56)
[2020-02-04] MEDS: NYSTATIN TOPICAL POWDER 15GM BOTTLE. TP SCH ×2 (09:17→20:00)
[2020-02-04] MEDS: ACETAMINOPHEN 325 MG TABLET PO SCH ×3 (09:17→19:56)
[2020-02-04] MEDS: POTASSIUM CHLORIDE 20 MEQ TABLET.ER. PO SCH ×3 (09:18→19:57)
[2020-02-04] MEDS: ASPIRIN ENTERIC COATED 81 MG TABLET.DR. PO SCH (09:18)
[2020-02-04] MEDS: LUBIPROSTONE 24 MCG CAPSULE PO SCH ×2 (09:18→17:04)
[2020-02-04] MEDS: TOPIRAMATE 100 MG TABLET. PO SCH ×2 (09:18→19:56)
[2020-02-04] MEDS: BENZTROPINE MESYLATE 1 MG TABLET PO SCH ×2 (09:18→19:56)
[2020-02-04] MEDS: NYSTATIN 100,000 UNIT/GM TOPICAL CREAM 15GM TUBE. TP SCH ×2 (09:19→20:00)
[2020-02-04] MEDS: CETIRIZINE HCL 10 MG TABLET PO SCH (09:19)
[2020-02-04] MEDS: SPIRONOLACTONE 25 MG TABLET PO SCH (09:19)
[2020-02-04 15:44] VITALS: BP 137/83
[2020-02-04] MEDS: LATANOPROST 0.005% OPHTH SOLUTION 2.5ML BOTTLE. OU SCH (19:55)
[2020-02-04] MEDS: DULoxetine HCL 30 MG CAPSULE.DR PO SCH (19:55)
[2020-02-04] MEDS: QUEtiapine 100 MG TABLET. PO SCH (19:55)
[2020-02-04] MEDS: MIRTAZAPINE ODT 30 MG TAB.RAPDIS. PO SCH (19:56)
--- NOTE | 2020-02-04 21:49 | PDOC ---
Exam Note: David Note: Please also refer to the separate dictated note~for this date of service dictated separately.~Patient seen individually. Discussed the patient with Nursing staff reviewed the chart.~Reviewed interim history and current functioning. Reviewed vital signs,~Labs/ Radiology~and current medications noted below. Continue current treatment with the changes noted in the dictated addendum note Assessment: Vital Signs/I&O: Vital Signs Date Time Temp Pulse Resp B/P (MAP) Pulse Ox O2 Delivery O2 Flow Rate FiO2 02/04/20 15:44 98.3 77 18 137/83 (101) 95 Nasal Cannula 2.0 I & O 02/03/20 02/03/20 02/04/20 15:00 23:00 07:00 Intake Total 720 ml 720 ml Balance 720 ml 720 ml Current Medications: I have reviewed the current psychotropics carefully including drug interactions. Risk benefit ratio favors no change other than as noted in my dictated progress note. Diagnosis: Problems: (1) Schizoaffective disorder, bipolar type (2) Anxiety disorder (3) Schizoaffective disorder, chronic condition with acute exacerbation (4) Impulse control disorder TERRENCE DANIEL MD Feb 04, 2020 21:49
[2020-02-05] MEDS: LEVOTHYROXINE 50 MCG TABLET PO SCH (05:32)
[2020-02-05 06:22] VITALS: BP 110/81
--- NOTE | 2020-02-05 07:56 | PDOC ---
Exam Note: David Note: S/O: This note is a late entry for DOS 02/03/2020 covers elements not covered in my initial note. Discussed the patient with nursing staff, reviewed the chart. The patient was seen on audio-visual rounds in the evening with Abena KEEN. Nursing report was with Dasha KEEN. Patient slept 7-3/4 hours. She has been irritable, arguing, yelling at staff during showers, had to be in the west hallway to reduce stimuli and then did better. We will check her UA as well to make sure UTI is not worsening her agitation. ROS: Ambulation impaired in wheelchair. No CV, , Eye, ENT system symptoms on review. MSE: I had lengthy discussion about her mood lability, yelling and how it would be better for her to express to the staff, what it is she would like for them to do differently rather than yell and she was insightful about this. Speech coherent. Abstraction fair. Computation impaired. Language function intact. Attention span short. Mood and affect somewhat anxious, labile but improved. Labs: Reviewed. Imp: Schizoaffective disorder, bipolar type versus bipolar disorder mixed with psychotic features. Major depressive disorder. Anxiety disorder unspecified. Impulse control disorder unspecified. Plan: Continue psychotropics unchanged from initial note. Assessment: Vital Signs/I&O: VS - Last 72 Hours, by Label Date Time Temp Pulse Resp B/P (MAP) Pulse Ox O2 Delivery O2 Flow Rate FiO2 02/05/20 06:22 97.9 79 22 110/81 (91) 93 02/04/20 15:44 98.3 77 18 137/83 (101) 95 Nasal Cannula 2.0 02/04/20 06:21 98.2 80 20 139/80 (99) 93 2.0 02/03/20 15:42 98.3 71 18 115/66 (82) 94 Nasal Cannula 2.0 02/03/20 09:50 92 02/03/20 08:43 92 02/03/20 06:20 98.2 89 20 117/73 (88) 92 2.0 02/02/20 16:03 98.2 82 18 129/82 (98) 97 2.0 Vital Signs Date Time Temp Pulse Resp B/P (MAP) Pulse Ox O2 Delivery O2 Flow Rate FiO2 02/05/20 06:22 97.9 79 22 110/81 (91) 93 02/04/20 15:44 Nasal Cannula 2.0 I & O 02/04/20 02/04/20 02/05/20 15:00 23:00 07:00 Intake Total 720 ml 840 ml Balance 720 ml 840 ml Current Medications: I have reviewed the current psychotropics carefully including drug interactions. Risk benefit ratio favors no change other than as noted in my dictated progress note. Diagnosis: Problems: (1) Schizoaffective disorder, bipolar type (2) Anxiety disorder (3) Schizoaffective disorder, chronic condition with acute exacerbation (4) Impulse control disorder TERRENCE DANIEL MD Feb 05, 2020 07:56
--- NOTE | 2020-02-05 08:16 | PDOC ---
Exam Note: David Note: S/O: This note is a late entry for DOS 02/04/2020 covers elements not covered in my initial note. Discussed the patient with nursing staff, reviewed the chart. The patient was seen on audio-visual rounds in the evening with Addi KEEN. Nursing report was with Addi KEEN. She slept 7-1/4 hours, irritable, needy somewhat helpless at times according to Tamica KEEN. During the day today she has been withdrawn, compliant with medications. ROS: Ambulation impaired in wheelchair. No CV, , Eye, ENT system symptoms on review. MSE: Oriented reasonably. Speech coherent. Abstraction fair. Computation impaired. Language function intact. Attention span short. Mood and affect somewhat anxious, labile but improved. Labs: Reviewed. Imp: Schizoaffective disorder, bipolar type versus bipolar disorder mixed with psychotic features. Major depressive disorder. Anxiety disorder unspecified. Impulse control disorder unspecified. Plan: Continue psychotropics unchanged from initial note. Assessment: Vital Signs/I&O: Vital Signs Date Time Temp Pulse Resp B/P (MAP) Pulse Ox O2 Delivery O2 Flow Rate FiO2 02/05/20 06:22 97.9 79 22 110/81 (91) 93 02/04/20 15:44 Nasal Cannula 2.0 I & O 02/04/20 02/04/20 02/05/20 15:00 23:00 07:00 Intake Total 720 ml 840 ml Balance 720 ml 840 ml Current Medications: I have reviewed the current psychotropics carefully including drug interactions. Risk benefit ratio favors no change other than as noted in my dictated progress note. Diagnosis: Problems: (1) Schizoaffective disorder, bipolar type (2) Anxiety disorder (3) Schizoaffective disorder, chronic condition with acute exacerbation (4) Impulse control disorder TERRENCE DANIEL MD Feb 05, 2020 08:16
[2020-02-05] MEDS: POLYVINYL ALCOHOL/POVIDONE/PF OPHTH SOLUTION DROPERETTE. OU SCH ×3 (08:38→20:53)
[2020-02-05] MEDS: CETIRIZINE HCL 10 MG TABLET PO SCH (08:39)
[2020-02-05] MEDS: ASPIRIN ENTERIC COATED 81 MG TABLET.DR. PO SCH (08:39)
[2020-02-05] MEDS: LUBIPROSTONE 24 MCG CAPSULE PO SCH ×2 (08:39→16:23)
[2020-02-05] MEDS: POTASSIUM CHLORIDE 20 MEQ TABLET.ER. PO SCH ×3 (08:39→20:54)
[2020-02-05] MEDS: metOLazone 5 MG TABLET PO SCH (08:39)
[2020-02-05] MEDS: SPIRONOLACTONE 25 MG TABLET PO SCH (08:40)
[2020-02-05] MEDS: ACETAMINOPHEN 325 MG TABLET PO SCH ×3 (08:40→20:56)
[2020-02-05] MEDS: TOPIRAMATE 100 MG TABLET. PO SCH ×2 (08:40→20:54)
[2020-02-05] MEDS: BENZTROPINE MESYLATE 1 MG TABLET PO SCH ×2 (08:40→20:55)
[2020-02-05] MEDS: DIVALPROEX 125 MG CAP.SPRINK PO SCH ×2 (08:41→20:55)
[2020-02-05] MEDS: NYSTATIN TOPICAL POWDER 15GM BOTTLE. TP SCH ×2 (09:00→20:56)
[2020-02-05] MEDS: NYSTATIN 100,000 UNIT/GM TOPICAL CREAM 15GM TUBE. TP SCH ×2 (09:00→20:56)
[2020-02-05 15:54] VITALS: BP 114/75
[2020-02-05] MEDS: LATANOPROST 0.005% OPHTH SOLUTION 2.5ML BOTTLE. OU SCH (20:54)
[2020-02-05] MEDS: MIRTAZAPINE ODT 30 MG TAB.RAPDIS. PO SCH (20:55)
[2020-02-05] MEDS: QUEtiapine 100 MG TABLET. PO SCH (20:55)
[2020-02-05] MEDS: DULoxetine HCL 30 MG CAPSULE.DR PO SCH (20:57)
--- NOTE | 2020-02-05 22:08 | PDOC ---
Exam Note: David Note: Please also refer to the separate dictated note~for this date of service dictated separately.~Patient seen individually. Discussed the patient with Nursing staff reviewed the chart.~Reviewed interim history and current functioning. Reviewed vital signs,~Labs/ Radiology~and current medications noted below. Continue current treatment with the changes noted in the dictated addendum note Assessment: Vital Signs/I&O: Vital Signs Date Time Temp Pulse Resp B/P (MAP) Pulse Ox O2 Delivery O2 Flow Rate FiO2 02/05/20 15:54 98.2 75 18 114/75 (88) 96 02/04/20 15:44 Nasal Cannula 2.0 I & O 02/04/20 02/04/20 02/05/20 15:00 23:00 07:00 Intake Total 720 ml 840 ml Balance 720 ml 840 ml Current Medications: I have reviewed the current psychotropics carefully including drug interactions. Risk benefit ratio favors no change other than as noted in my dictated progress note. Diagnosis: Problems: (1) Schizoaffective disorder, bipolar type (2) Anxiety disorder (3) Schizoaffective disorder, chronic condition with acute exacerbation (4) Impulse control disorder TERRENCE DANIEL MD Feb 05, 2020 22:08
[2020-02-06 04:44] VITALS: BP 104/63
[2020-02-06] MEDS: LEVOTHYROXINE 50 MCG TABLET PO SCH (06:27)
[2020-02-06] MEDS: BENZTROPINE MESYLATE 1 MG TABLET PO SCH ×2 (08:40→20:27)
[2020-02-06] MEDS: ASPIRIN ENTERIC COATED 81 MG TABLET.DR. PO SCH (08:40)
[2020-02-06] MEDS: DIVALPROEX 125 MG CAP.SPRINK PO SCH ×2 (08:40→20:24)
[2020-02-06] MEDS: ACETAMINOPHEN 325 MG TABLET PO SCH ×3 (08:40→20:28)
[2020-02-06] MEDS: POLYVINYL ALCOHOL/POVIDONE/PF OPHTH SOLUTION DROPERETTE. OU SCH ×3 (08:41→20:23)
[2020-02-06] MEDS: SPIRONOLACTONE 25 MG TABLET PO SCH (08:41)
[2020-02-06] MEDS: POTASSIUM CHLORIDE 20 MEQ TABLET.ER. PO SCH ×3 (08:42→20:26)
[2020-02-06] MEDS: TOPIRAMATE 100 MG TABLET. PO SCH ×2 (08:42→20:24)
[2020-02-06] MEDS: LUBIPROSTONE 24 MCG CAPSULE PO SCH ×2 (08:46→17:29)
[2020-02-06] MEDS: NYSTATIN 100,000 UNIT/GM TOPICAL CREAM 15GM TUBE. TP SCH ×2 (08:52→20:29)
[2020-02-06] MEDS: CETIRIZINE HCL 10 MG TABLET PO SCH (08:52)
[2020-02-06] MEDS: NYSTATIN TOPICAL POWDER 15GM BOTTLE. TP SCH ×2 (08:52→20:29)
--- NOTE | 2020-02-06 09:53 | PDOC ---
Exam Note: David Note: S/O: This note is a late entry for DOS 02/05/2020covers elements not covered in my initial note. Discussed the patient with nursing staff, reviewed the chart. The patient was seen on audio-visual rounds in the evening with Abena KEEN. Nursing report was with Addi KEEN. Previous night the patient was noted to be quite attention-seeking, anxious, restless, but done much better during the day. ROS: Ambulation impaired in wheelchair. No CV, , Pulmonary, Eye, ENT system symptoms on review. She did complain of some nausea earlier and did not feel like having dinner but then after dinner she said she felt better as I met with her. MSE: Oriented reasonably. Speech coherent. Abstraction fair. Computation impaired. Language function intact. Attention span short. Mood and affect somewhat anxious, labile but improved. Labs: Reviewed. Imp: Schizoaffective disorder, bipolar type versus bipolar disorder mixed with psychotic features. Major depressive disorder. Anxiety disorder unspecified. Impulse control disorder unspecified. Plan: Continue psychotropics from initial note. Assessment: Vital Signs/I&O: Vital Signs Date Time Temp Pulse Resp B/P (MAP) Pulse Ox O2 Delivery O2 Flow Rate FiO2 02/06/20 04:44 98.1 76 18 104/63 (77) 94 2.0 02/04/20 15:44 Nasal Cannula I & O 02/05/20 02/05/20 02/06/20 15:00 23:00 07:00 Intake Total 1200 ml 480 ml Balance 1200 ml 480 ml Current Medications: I have reviewed the current psychotropics carefully including drug interactions. Risk benefit ratio favors no change other than as noted in my dictated progress note. Diagnosis: Problems: (1) Schizoaffective disorder, bipolar type (2) Anxiety disorder (3) Schizoaffective disorder, chronic condition with acute exacerbation (4) Impulse control disorder TERRENCE DANIEL MD Feb 06, 2020 09:53
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
[2020-02-06 15:48] VITALS: BP 129/80
[2020-02-06] MEDS: LATANOPROST 0.005% OPHTH SOLUTION 2.5ML BOTTLE. OU SCH (20:23)
[2020-02-06] MEDS: QUEtiapine 100 MG TABLET. PO SCH (20:25)
[2020-02-06] MEDS: MIRTAZAPINE ODT 30 MG TAB.RAPDIS. PO SCH (20:27)
[2020-02-06] MEDS: DULoxetine HCL 30 MG CAPSULE.DR PO SCH (20:27)
--- NOTE | 2020-02-06 22:10 | PDOC ---
Exam Note: David Note: Please also refer to the separate dictated note~for this date of service dictated separately.~Patient seen individually. Discussed the patient with Nursing staff reviewed the chart.~Reviewed interim history and current functioning. Reviewed vital signs,~Labs/ Radiology~and current medications noted below. Continue current treatment with the changes noted in the dictated addendum note Assessment: Vital Signs/I&O: Vital Signs Date Time Temp Pulse Resp B/P (MAP) Pulse Ox O2 Delivery O2 Flow Rate FiO2 02/06/20 15:48 98.6 75 20 129/80 (96) 98 2.0 02/04/20 15:44 Nasal Cannula I & O 02/05/20 02/05/20 02/06/20 15:00 23:00 07:00 Intake Total 1200 ml 480 ml Balance 1200 ml 480 ml Current Medications: I have reviewed the current psychotropics carefully including drug interactions. Risk benefit ratio favors no change other than as noted in my dictated progress note. Diagnosis: Problems: (1) Schizoaffective disorder, bipolar type (2) Anxiety disorder (3) Schizoaffective disorder, chronic condition with acute exacerbation (4) Impulse control disorder (5) Medical clearance for psychiatric admission TERRENCE DANIEL MD Feb 06, 2020 22:10
[2020-02-07] MEDS: LEVOTHYROXINE 50 MCG TABLET PO SCH (05:12)
[2020-02-07 06:14] VITALS: BP 131/84
[2020-02-07] MEDS: ASPIRIN ENTERIC COATED 81 MG TABLET.DR. PO SCH (08:28)
[2020-02-07] MEDS: ACETAMINOPHEN 325 MG TABLET PO SCH ×3 (08:28→20:41)
[2020-02-07] MEDS: CETIRIZINE HCL 10 MG TABLET PO SCH (08:28)
[2020-02-07] MEDS: SPIRONOLACTONE 25 MG TABLET PO SCH (08:28)
[2020-02-07] MEDS: LUBIPROSTONE 24 MCG CAPSULE PO SCH ×2 (08:28→17:35)
[2020-02-07] MEDS: TOPIRAMATE 100 MG TABLET. PO SCH ×2 (08:28→20:42)
[2020-02-07] MEDS: POLYVINYL ALCOHOL/POVIDONE/PF OPHTH SOLUTION DROPERETTE. OU SCH ×3 (08:29→20:41)
[2020-02-07] MEDS: POTASSIUM CHLORIDE 20 MEQ TABLET.ER. PO SCH ×3 (08:29→20:42)
[2020-02-07] MEDS: DIVALPROEX 125 MG CAP.SPRINK PO SCH ×2 (08:29→20:42)
[2020-02-07] MEDS: BENZTROPINE MESYLATE 1 MG TABLET PO SCH ×2 (08:29→20:43)
[2020-02-07] MEDS: NYSTATIN TOPICAL POWDER 15GM BOTTLE. TP SCH ×2 (08:30→20:43)
[2020-02-07] MEDS: NYSTATIN 100,000 UNIT/GM TOPICAL CREAM 15GM TUBE. TP SCH ×2 (08:30→20:42)
[2020-02-07] MEDS ORDERED: DIVA500T2 PO (09:27)
[2020-02-07] MEDS ORDERED: DIVA125C2 PO ×2 (09:29→09:30)
[2020-02-07] MEDS ORDERED: HYDR-2759 PO (09:31)
[2020-02-07] MEDS ORDERED: METH28OI2 TP (09:32)
[2020-02-07] MEDS ORDERED: MAGN24003 PO (09:32)
[2020-02-07] MEDS ORDERED: NYST15CR TP (09:41)
[2020-02-07] MEDS ORDERED: NYST15PO9 TP (09:42)
[2020-02-07] MEDS ORDERED: ONDA4TAB12 PO (09:43)
[2020-02-07 15:51] VITALS: BP 114/69
[2020-02-07] MEDS: QUEtiapine 100 MG TABLET. PO SCH (20:41)
[2020-02-07] MEDS: DULoxetine HCL 30 MG CAPSULE.DR PO SCH (20:41)
[2020-02-07] MEDS: MIRTAZAPINE ODT 30 MG TAB.RAPDIS. PO SCH (20:42)
[2020-02-07] MEDS: LATANOPROST 0.005% OPHTH SOLUTION 2.5ML BOTTLE. OU SCH (20:43)
--- NOTE | 2020-02-07 22:14 | PDOC ---
Exam Note: David Note: Please also refer to the separate dictated note~for this date of service dictated separately.~Patient seen individually. Discussed the patient with Nursing staff reviewed the chart.~Reviewed interim history and current functioning. Reviewed vital signs,~Labs/ Radiology~and current medications noted below. Continue current treatment with the changes noted in the dictated addendum note Assessment: Vital Signs/I&O: Vital Signs Date Time Temp Pulse Resp B/P (MAP) Pulse Ox O2 Delivery O2 Flow Rate FiO2 02/07/20 15:51 98.2 74 16 114/69 (84) 95 02/07/20 06:14 Nasal Cannula 2.0 I & O 02/06/20 02/06/20 02/07/20 15:00 23:00 07:00 Intake Total 840 ml 340 ml Balance 840 ml 340 ml Current Medications: I have reviewed the current psychotropics carefully including drug interactions. Risk benefit ratio favors no change other than as noted in my dictated progress note. Diagnosis: Problems: (1) Schizoaffective disorder, bipolar type (2) Anxiety disorder (3) Schizoaffective disorder, chronic condition with acute exacerbation (4) Impulse control disorder TERRENCE DANIEL MD Feb 07, 2020 22:14
[2020-02-08] MEDS: LEVOTHYROXINE 50 MCG TABLET PO SCH (04:45)
[2020-02-08 05:36] VITALS: BP 142/72
--- NOTE | 2020-02-08 07:56 | PDOC ---
Exam Note: David Note: S/O: This note is a late entry for DOS 02/06/2020 covers elements not covered in my initial note. Discussed the patient with treatment team meeting with the entire team in the morning including Mio, social service staff, nursing staff, and myself reviewed the chart. Also met with the patient indiv idually in the evening on audio-visual rounds. Nursing report was with Ruby KEEN. I have been informed that every patient will be tested in sequence for COVID-19 and disposition plans would be determined by the result of the testing. The patient has been demanding. Appetite is 100%. Sleeping 5-1/2 hours. ROS: Ambulation impaired in wheelchair. No CV, , Pulmonary, Eye, ENT system symptoms on review. MSE: During audio-visual rounds in the evening, patient was quite verbal, open, forthcoming, smiling, interactive, very appreciative of my visiting her. Speech coherent. Abstraction fair. Computation impaired. Language function intact. Attention span short. No psychotic symptoms, suicidal or homicidal ideation. Mood is improved. Affect is mood congruent. Labs: Reviewed. Her albumin is low and Dr. Bragg is monitoring this. Imp: Schizoaffective disorder, bipolar type versus bipolar disorder mixed with psychotic features. Major depressive disorder. Anxiety disorder unspecified. Impulse control disorder unspecified. Plan: Continue psychotropics from initial note. Assessment: Vital Signs/I&O: Vital Signs Date Time Temp Pulse Resp B/P (MAP) Pulse Ox O2 Delivery O2 Flow Rate FiO2 02/08/20 05:36 98.3 79 18 142/72 (95) Nasal Cannula 2.0 02/07/20 15:51 95 I & O 02/07/20 02/07/20 02/08/20 15:00 23:00 07:00 Intake Total 720 ml 955 ml Balance 720 ml 955 ml Current Medications: I have reviewed the current psychotropics carefully including drug interactions. Risk benefit ratio favors no change other than as noted in my dictated progress note. Diagnosis: Problems: (1) Schizoaffective disorder, bipolar type (2) Anxiety disorder (3) Schizoaffective disorder, chronic condition with acute exacerbation (4) Impulse control disorder TERRENCE DANIEL MD Feb 08, 2020 07:56
[2020-02-08] MEDS: SPIRONOLACTONE 25 MG TABLET PO SCH (12:20)
[2020-02-08] MEDS: POLYVINYL ALCOHOL/POVIDONE/PF OPHTH SOLUTION DROPERETTE. OU SCH ×3 (12:20→19:58)
[2020-02-08] MEDS: LUBIPROSTONE 24 MCG CAPSULE PO SCH ×2 (12:20→17:28)
[2020-02-08] MEDS: ASPIRIN ENTERIC COATED 81 MG TABLET.DR. PO SCH (12:21)
[2020-02-08] MEDS: BENZTROPINE MESYLATE 1 MG TABLET PO SCH ×2 (12:21→20:00)
[2020-02-08] MEDS: POTASSIUM CHLORIDE 20 MEQ TABLET.ER. PO SCH ×3 (12:23→19:59)
[2020-02-08] MEDS: DIVALPROEX 125 MG CAP.SPRINK PO SCH ×2 (12:23→19:58)
[2020-02-08] MEDS: NYSTATIN TOPICAL POWDER 15GM BOTTLE. TP SCH ×2 (12:24→19:57)
[2020-02-08] MEDS: ACETAMINOPHEN 325 MG TABLET PO SCH ×3 (12:24→20:00)
[2020-02-08] MEDS: NYSTATIN 100,000 UNIT/GM TOPICAL CREAM 15GM TUBE. TP SCH ×2 (12:24→19:57)
[2020-02-08] MEDS: CETIRIZINE HCL 10 MG TABLET PO SCH (12:24)
[2020-02-08] MEDS: TOPIRAMATE 100 MG TABLET. PO SCH ×2 (12:24→20:01)
[2020-02-08 15:18] VITALS: BP 122/76
[2020-02-08 17:21] LABS: BASO % 1 % (0-3); EOS # 0.2 x10^3/uL (0.0-0.7); EOS % 4 % (0-3); HEMATOCRIT 38.6 % (36.0-47.0); HEMOGLOBIN 12.6 g/dL (12.0-15.5); LYMPH # 1.2 x10^3/uL (1.0-4.8); LYMPH % 24 % (24-48); MEAN CORPUSCULAR HEMOGLOBIN 30 pg (25-35); MEAN CORPUSCULAR HGB CONC 33 g/dL (31-37); MEAN CORPUSCULAR VOLUME 93 fL (79-100); MONO # 0.4 x10^3/uL (0.0-1.1); MONO % 9 % (0-9); NEUT # 3.1 x10^3uL (1.8-7.7); NEUT % 62 % (31-73); PLATELET COUNT 139 x10^3/uL (140-400); RED BLOOD COUNT 4.16 x10^6/uL (3.50-5.40); RED CELL DISTRIBUTION WIDTH 14.9 % (11.5-14.5); WHITE BLOOD COUNT 4.9 x10^3/uL (4.0-11.0)
[2020-02-08 17:33] LABS: ALBUMIN 2.7 g/dL (3.4-5.0); ALBUMIN/GLOBULIN RATIO 0.6 (1.0-1.7); ALK PHOS 87 U/L (46-116); ALT (SGPT) 14 U/L (14-59); ANION GAP 4 (6-14); AST (SGOT) 15 U/L (15-37); BLOOD UREA NITROGEN 15 mg/dL (7-20); BUN/CREATININE RATIO 17 (6-20); CALCIUM 7.8 mg/dL (8.5-10.1); CARBON DIOXIDE 30 mmol/L (21-32); CHLORIDE 100 mmol/L (98-107); CREATININE 0.9 mg/dL (0.6-1.0); GFR 62.5; GLUCOSE 136 mg/dL (70-99); POTASSIUM 3.7 mmol/L (3.5-5.1); SODIUM 134 mmol/L (136-145); TOTAL PROTEIN 7.1 g/dL (6.4-8.2)
[2020-02-08 18:16] LABS: TOTAL BILIRUBIN < 0.1 mg/dL (0.2-1.0)
[2020-02-08] MEDS: LATANOPROST 0.005% OPHTH SOLUTION 2.5ML BOTTLE. OU SCH (19:58)
[2020-02-08] MEDS: DULoxetine HCL 30 MG CAPSULE.DR PO SCH (19:58)
[2020-02-08] MEDS: QUEtiapine 100 MG TABLET. PO SCH (19:59)
[2020-02-08] MEDS: MIRTAZAPINE ODT 30 MG TAB.RAPDIS. PO SCH (20:01)
--- NOTE | 2020-02-08 22:14 | PDOC ---
Exam Note: David Note: Please also refer to the separate dictated note~for this date of service dictated separately.~Patient seen individually. Discussed the patient with Nursing staff reviewed the chart.~Reviewed interim history and current functioning. Reviewed vital signs,~Labs/ Radiology~and current medications noted below. Continue current treatment with the changes noted in the dictated addendum note Assessment: Vital Signs/I&O: Vital Signs Date Time Temp Pulse Resp B/P (MAP) Pulse Ox O2 Delivery O2 Flow Rate FiO2 02/08/20 15:18 98.5 84 20 122/76 (91) 96 Nasal Cannula 2.0 I & O 02/07/20 02/07/20 02/08/20 15:00 23:00 07:00 Intake Total 720 ml 955 ml Balance 720 ml 955 ml Labs: Laboratory Tests Test 02/08/20 17:00 White Blood Count 4.9 x10^3/uL (4.0-11.0) Red Blood Count 4.16 x10^6/uL (3.50-5.40) Hemoglobin 12.6 g/dL (12.0-15.5) Hematocrit 38.6 % (36.0-47.0) Mean Corpuscular Volume 93 fL (79-100) Mean Corpuscular Hemoglobin 30 pg (25-35) Mean Corpuscular Hemoglobin Concent 33 g/dL (31-37) Red Cell Distribution Width 14.9 % (11.5-14.5) H Platelet Count 139 x10^3/uL (140-400) L Neutrophils (%) (Auto) 62 % (31-73) Lymphocytes (%) (Auto) 24 % (24-48) Monocytes (%) (Auto) 9 % (0-9) Eosinophils (%) (Auto) 4 % (0-3) H Basophils (%) (Auto) 1 % (0-3) Neutrophils # (Auto) 3.1 x10^3uL (1.8-7.7) Lymphocytes # (Auto) 1.2 x10^3/uL (1.0-4.8) Monocytes # (Auto) 0.4 x10^3/uL (0.0-1.1) Eosinophils # (Auto) 0.2 x10^3/uL (0.0-0.7) Basophils # (Auto) 0.0 x10^3/uL (0.0-0.2) Sodium Level 134 mmol/L (136-145) L Potassium Level 3.7 mmol/L (3.5-5.1) Chloride Level 100 mmol/L (98-107) Carbon Dioxide Level 30 mmol/L (21-32) Anion Gap 4 (6-14) L Blood Urea Nitrogen 15 mg/dL (7-20) Creatinine 0.9 mg/dL (0.6-1.0) Estimated GFR (Cockcroft-Gault) 62.5 BUN/Creatinine Ratio 17 (6-20) Glucose Level 136 mg/dL (70-99) H Calcium Level 7.8 mg/dL (8.5-10.1) L Total Bilirubin < 0.1 mg/dL (0.2-1.0) L Aspartate Amino Transferase (AST) 15 U/L (15-37) Alanine Aminotransferase (ALT) 14 U/L (14-59) Alkaline Phosphatase 87 U/L (46-116) Total Protein 7.1 g/dL (6.4-8.2) Albumin 2.7 g/dL (3.4-5.0) L Albumin/Globulin Ratio 0.6 (1.0-1.7) L Current Medications: I have reviewed the current psychotropics carefully including drug interactions. Risk benefit ratio favors no change other than as noted in my dictated progress note. Diagnosis: Problems: (1) Schizoaffective disorder, bipolar type (2) Anxiety disorder (3) Schizoaffective disorder, chronic condition with acute exacerbation (4) Impulse control disorder TERRENCE DANIEL MD Feb 08, 2020 22:14
[2020-02-09] MEDS: LEVOTHYROXINE 50 MCG TABLET PO SCH (05:45)
[2020-02-09 06:00] VITALS: BP 135/82
[2020-02-09] MEDS: ASPIRIN ENTERIC COATED 81 MG TABLET.DR. PO SCH (07:41)
[2020-02-09] MEDS: ACETAMINOPHEN 325 MG TABLET PO SCH ×3 (07:41→20:41)
[2020-02-09] MEDS: SPIRONOLACTONE 25 MG TABLET PO SCH (07:41)
[2020-02-09] MEDS: BENZTROPINE MESYLATE 1 MG TABLET PO SCH (07:42)
[2020-02-09] MEDS: CETIRIZINE HCL 10 MG TABLET PO SCH (07:42)
[2020-02-09] MEDS: TOPIRAMATE 100 MG TABLET. PO SCH ×2 (07:42→20:39)
[2020-02-09] MEDS: POLYVINYL ALCOHOL/POVIDONE/PF OPHTH SOLUTION DROPERETTE. OU SCH ×3 (07:43→20:37)
[2020-02-09] MEDS: POTASSIUM CHLORIDE 20 MEQ TABLET.ER. PO SCH ×3 (07:43→20:39)
[2020-02-09] MEDS: DIVALPROEX 125 MG CAP.SPRINK PO SCH ×2 (07:43→20:41)
[2020-02-09] MEDS: LUBIPROSTONE 24 MCG CAPSULE PO SCH ×2 (07:44→17:23)
[2020-02-09] MEDS: NYSTATIN TOPICAL POWDER 15GM BOTTLE. TP SCH ×2 (07:45→20:38)
--- NOTE | 2020-02-09 07:58 | PDOC ---
Exam Note: David Note: S/O: This note is a late entry for DOS 02/07/2020 covers elements not covered in my initial note. Discussed the patient with nursing staff, reviewed the chart. Also met with the patient individually in the evening on audio-visual rounds. Nursing report was with Addi KEEN. COVID-19 screen is negative. ROS: Ambulation impaired in wheelchair. No CV, , Pulmonary, Eye, ENT system symptoms on review. MSE: She has been pleasant, cooperative, fairly interactive. Speech coherent. Abstraction fair. Computation impaired. Language function intact. Attention s smith short. No psychotic symptoms, suicidal or homicidal ideation. Mood lability much improved. Affect is mood congruent. Labs: Reviewed. Imp: Schizoaffective disorder, bipolar type versus bipolar disorder mixed with psychotic features. Major depressive disorder. Anxiety disorder unspecified. Impulse control disorder unspecified. Plan: Continue psychotropics from initial note. Assessment: Vital Signs/I&O: Vital Signs Date Time Temp Pulse Resp B/P (MAP) Pulse Ox O2 Delivery O2 Flow Rate FiO2 02/09/20 06:00 97.5 72 20 135/82 (99) 95 Nasal Cannula 2.0 I & O 02/08/20 02/08/20 02/09/20 15:00 23:00 07:00 Intake Total 960 ml 600 ml Balance 960 ml 600 ml Labs: Laboratory Tests Test 02/08/20 17:00 White Blood Count 4.9 x10^3/uL (4.0-11.0) Red Blood Count 4.16 x10^6/uL (3.50-5.40) Hemoglobin 12.6 g/dL (12.0-15.5) Hematocrit 38.6 % (36.0-47.0) Mean Corpuscular Volume 93 fL (79-100) Mean Corpuscular Hemoglobin 30 pg (25-35) Mean Corpuscular Hemoglobin Concent 33 g/dL (31-37) Red Cell Distribution Width 14.9 % (11.5-14.5) H Platelet Count 139 x10^3/uL (140-400) L Neutrophils (%) (Auto) 62 % (31-73) Lymphocytes (%) (Auto) 24 % (24-48) Monocytes (%) (Auto) 9 % (0-9) Eosinophils (%) (Auto) 4 % (0-3) H Basophils (%) (Auto) 1 % (0-3) Neutrophils # (Auto) 3.1 x10^3uL (1.8-7.7) Lymphocytes # (Auto) 1.2 x10^3/uL (1.0-4.8) Monocytes # (Auto) 0.4 x10^3/uL (0.0-1.1) Eosinophils # (Auto) 0.2 x10^3/uL (0.0-0.7) Basophils # (Auto) 0.0 x10^3/uL (0.0-0.2) Sodium Level 134 mmol/L (136-145) L Potassium Level 3.7 mmol/L (3.5-5.1) Chloride Level 100 mmol/L (98-107) Carbon Dioxide Level 30 mmol/L (21-32) Anion Gap 4 (6-14) L Blood Urea Nitrogen 15 mg/dL (7-20) Creatinine 0.9 mg/dL (0.6-1.0) Estimated GFR (Cockcroft-Gault) 62.5 BUN/Creatinine Ratio 17 (6-20) Glucose Level 136 mg/dL (70-99) H Calcium Level 7.8 mg/dL (8.5-10.1) L Total Bilirubin < 0.1 mg/dL (0.2-1.0) L Aspartate Amino Transferase (AST) 15 U/L (15-37) Alanine Aminotransferase (ALT) 14 U/L (14-59) Alkaline Phosphatase 87 U/L (46-116) Total Protein 7.1 g/dL (6.4-8.2) Albumin 2.7 g/dL (3.4-5.0) L Albumin/Globulin Ratio 0.6 (1.0-1.7) L Current Medications: I have reviewed the current psychotropics carefully including drug interactions. Risk benefit ratio favors no change other than as noted in my dictated progress note. Diagnosis: Problems: (1) Schizoaffective disorder, bipolar type (2) Anxiety disorder (3) Schizoaffective disorder, chronic condition with acute exacerbation (4) Impulse control disorder TERRENCE DANIEL MD Feb 09, 2020 07:58
--- NOTE | 2020-02-09 08:13 | PDOC ---
Exam Note: David Note: S/O: This note is a late entry for DOS 02/08/2020 covers elements not covered in my initial note. Discussed the patient with nursing staff, reviewed the chart. Also met with the patient individually in the evening on audio-visual rounds. Nursing report was with Lulú KEEN. She slept 6-3/4 hours, refused a.m. medications. She slipped down in her bed. Nursing staff repositioned her, then she took her meds later. Per nursing report she took a shower previous evening and cooperated fully with this. No agitation, aggression or yelling happened the previous time she took a shower couple of days back. ROS: Ambulation impaired in wheelchair. No CV, , Pulmonary, Eye, ENT system symptoms on review. MSE: Oriented. Speech coherent. Abstraction fair. Computation impaired. Language function intact. Attention span short. No psychotic symptoms, suicidal or homicidal ideation. Mood is improved. Affect is mood congruent. Labs: Reviewed. Imp: Schizoaffective disorder, bipolar type versus bipolar disorder mixed with psychotic features. Major depressive disorder. Anxiety disorder unspecified. Impulse control disorder unspecified. Plan: Continue psychotropics from initial note. Assessment: Vital Signs/I&O: Vital Signs Date Time Temp Pulse Resp B/P (MAP) Pulse Ox O2 Delivery O2 Flow Rate FiO2 02/09/20 06:00 97.5 72 20 135/82 (99) 95 Nasal Cannula 2.0 I & O 02/08/20 02/08/20 02/09/20 14:59 22:59 06:59 Intake Total 960 ml 600 ml Balance 960 ml 600 ml Labs: Laboratory Tests Test 02/08/20 17:00 White Blood Count 4.9 x10^3/uL (4.0-11.0) Red Blood Count 4.16 x10^6/uL (3.50-5.40) Hemoglobin 12.6 g/dL (12.0-15.5) Hematocrit 38.6 % (36.0-47.0) Mean Corpuscular Volume 93 fL (79-100) Mean Corpuscular Hemoglobin 30 pg (25-35) Mean Corpuscular Hemoglobin Concent 33 g/dL (31-37) Red Cell Distribution Width 14.9 % (11.5-14.5) H Platelet Count 139 x10^3/uL (140-400) L Neutrophils (%) (Auto) 62 % (31-73) Lymphocytes (%) (Auto) 24 % (24-48) Monocytes (%) (Auto) 9 % (0-9) Eosinophils (%) (Auto) 4 % (0-3) H Basophils (%) (Auto) 1 % (0-3) Neutrophils # (Auto) 3.1 x10^3uL (1.8-7.7) Lymphocytes # (Auto) 1.2 x10^3/uL (1.0-4.8) Monocytes # (Auto) 0.4 x10^3/uL (0.0-1.1) Eosinophils # (Auto) 0.2 x10^3/uL (0.0-0.7) Basophils # (Auto) 0.0 x10^3/uL (0.0-0.2) Sodium Level 134 mmol/L (136-145) L Potassium Level 3.7 mmol/L (3.5-5.1) Chloride Level 100 mmol/L (98-107) Carbon Dioxide Level 30 mmol/L (21-32) Anion Gap 4 (6-14) L Blood Urea Nitrogen 15 mg/dL (7-20) Creatinine 0.9 mg/dL (0.6-1.0) Estimated GFR (Cockcroft-Gault) 62.5 BUN/Creatinine Ratio 17 (6-20) Glucose Level 136 mg/dL (70-99) H Calcium Level 7.8 mg/dL (8.5-10.1) L Total Bilirubin < 0.1 mg/dL (0.2-1.0) L Aspartate Amino Transferase (AST) 15 U/L (15-37) Alanine Aminotransferase (ALT) 14 U/L (14-59) Alkaline Phosphatase 87 U/L (46-116) Total Protein 7.1 g/dL (6.4-8.2) Albumin 2.7 g/dL (3.4-5.0) L Albumin/Globulin Ratio 0.6 (1.0-1.7) L Current Medications: I have reviewed the current psychotropics carefully including drug interactions. Risk benefit ratio favors no change other than as noted in my dictated progress note. Diagnosis: Problems: (1) Schizoaffective disorder, bipolar type (2) Anxiety disorder (3) Schizoaffective disorder, chronic condition with acute exacerbation (4) Impulse control disorder TERRENCE DANIEL MD Feb 09, 2020 08:13
[2020-02-09] MEDS: NYSTATIN 100,000 UNIT/GM TOPICAL CREAM 15GM TUBE. TP SCH ×2 (08:29→20:38)
[2020-02-09 15:51] VITALS: BP 149/74
[2020-02-09] MEDS: LATANOPROST 0.005% OPHTH SOLUTION 2.5ML BOTTLE. OU SCH (20:37)
[2020-02-09] MEDS: MIRTAZAPINE ODT 30 MG TAB.RAPDIS. PO SCH (20:38)
[2020-02-09] MEDS: DULoxetine HCL 30 MG CAPSULE.DR PO SCH (20:38)
[2020-02-09] MEDS: QUEtiapine 100 MG TABLET. PO SCH (20:40)
--- NOTE | 2020-02-09 22:13 | PDOC ---
Exam Note: David Note: Please also refer to the separate dictated note~for this date of service dictated separately.~Patient seen individually. Discussed the patient with Nursing staff reviewed the chart.~Reviewed interim history and current functioning. Reviewed vital signs,~Labs/ Radiology~and current medications noted below. Continue current treatment with the changes noted in the dictated addendum note Assessment: Vital Signs/I&O: Vital Signs Date Time Temp Pulse Resp B/P (MAP) Pulse Ox O2 Delivery O2 Flow Rate FiO2 02/09/20 15:51 98.2 87 20 149/74 (99) 98 02/09/20 06:00 Nasal Cannula 2.0 I & O 02/08/20 02/08/20 02/09/20 15:00 23:00 07:00 Intake Total 960 ml 600 ml Balance 960 ml 600 ml Current Medications: I have reviewed the current psychotropics carefully including drug interactions. Risk benefit ratio favors no change other than as noted in my dictated progress note. Diagnosis: Problems: (1) Schizoaffective disorder, bipolar type (2) Anxiety disorder (3) Schizoaffective disorder, chronic condition with acute exacerbation (4) Impulse control disorder TERRENCE DANIEL MD Feb 09, 2020 22:13
[2020-02-10] MEDS: LEVOTHYROXINE 50 MCG TABLET PO SCH (05:11)
[2020-02-10 05:54] VITALS: BP 102/71
[2020-02-10] MEDS: POLYVINYL ALCOHOL/POVIDONE/PF OPHTH SOLUTION DROPERETTE. OU SCH ×3 (09:00→20:19)
[2020-02-10] MEDS: SPIRONOLACTONE 25 MG TABLET PO SCH (09:00)
[2020-02-10] MEDS: TOPIRAMATE 100 MG TABLET. PO SCH ×2 (09:01→20:19)
[2020-02-10] MEDS: POTASSIUM CHLORIDE 20 MEQ TABLET.ER. PO SCH ×3 (09:01→21:00)
[2020-02-10] MEDS: DIVALPROEX 125 MG CAP.SPRINK PO SCH ×2 (09:01→20:18)
[2020-02-10] MEDS: NYSTATIN TOPICAL POWDER 15GM BOTTLE. TP SCH ×2 (09:02→20:17)
[2020-02-10] MEDS: ACETAMINOPHEN 325 MG TABLET PO SCH ×3 (09:02→20:19)
[2020-02-10] MEDS: CETIRIZINE HCL 10 MG TABLET PO SCH (09:02)
[2020-02-10] MEDS: NYSTATIN 100,000 UNIT/GM TOPICAL CREAM 15GM TUBE. TP SCH ×2 (09:02→20:19)
[2020-02-10] MEDS: BENZTROPINE MESYLATE 0.5 MG TABLET PO SCH (09:06)
[2020-02-10] MEDS: LUBIPROSTONE 24 MCG CAPSULE PO SCH ×2 (09:06→17:14)
[2020-02-10] MEDS: ASPIRIN ENTERIC COATED 81 MG TABLET.DR. PO SCH (09:06)
[2020-02-10 16:06] VITALS: BP 130/75
[2020-02-10] MEDS: LATANOPROST 0.005% OPHTH SOLUTION 2.5ML BOTTLE. OU SCH (20:17)
[2020-02-10] MEDS: QUEtiapine 100 MG TABLET. PO SCH (20:18)
[2020-02-10] MEDS: MIRTAZAPINE ODT 30 MG TAB.RAPDIS. PO SCH (20:19)
[2020-02-10] MEDS: DULoxetine HCL 30 MG CAPSULE.DR PO SCH (20:19)
--- NOTE | 2020-02-10 22:25 | PDOC ---
Exam Note: David Note: Please also refer to the separate dictated note~for this date of service dictated separately.~Patient seen individually. Discussed the patient with Nursing staff reviewed the chart.~Reviewed interim history and current functioning. Reviewed vital signs,~Labs/ Radiology~and current medications noted below. Continue current treatment with the changes noted in the dictated addendum note Assessment: Vital Signs/I&O: Vital Signs Date Time Temp Pulse Resp B/P (MAP) Pulse Ox O2 Delivery O2 Flow Rate FiO2 02/10/20 16:06 97.8 81 16 130/75 (93) 97 Nasal Cannula 2.0 I & O 02/09/20 02/09/20 02/10/20 14:59 22:59 06:59 Intake Total 1020 ml 660 ml 360 ml Balance 1020 ml 660 ml 360 ml Current Medications: Meds: Current Medications Medications (Trade) Dose Ordered Sig/Carlos Route PRN Reason Start Time Stop Time Status Last Admin Dose Admin Benztropine Mesylate (Cogentin) 0.5 mg DAILY PO 02/10/20 09:00 02/10/20 09:06 I have reviewed the current psychotropics carefully including drug interactions. Risk benefit ratio favors no change other than as noted in my dictated progress note. Diagnosis: Problems: (1) Schizoaffective disorder, bipolar type (2) Anxiety disorder (3) Schizoaffective disorder, chronic condition with acute exacerbation (4) Impulse control disorder TERRENCE DANIEL MD Feb 10, 2020 22:25
[2020-02-11] MEDS: LEVOTHYROXINE 50 MCG TABLET PO SCH (06:05)
[2020-02-11 06:19] VITALS: BP 136/80
--- NOTE | 2020-02-11 07:40 | PDOC ---
Exam Note: David Note: S/O: This note is a late entry for DOS 02/09/2020 covers elements not covered in my initial note. Discussed the patient with nursing staff, reviewed the chart. Also met with the patient individually in the evening on audio-visual rounds with Lulú KEEN. Nursing report was with Lulú KEEN. She slept 7-3/4 hours previous night. She has been quite appropriate on the unit, somewhat withdrawn, does complain of some dysuria but when nursing staff checked with her about an hour later she had no complaints of this. She does complain of some bladder retention and we will reduce the Cogentin from 0.5 mg b.i.d. down to 0.5 mg once a day. ROS: Ambulation impaired in wheelchair. No CV, Pulmonary, Eye, ENT system symptoms on review. symptoms noted above. MSE: Oriented. Speech coherent. Abstraction fair. Computation impaired. Language function intact. Attention span short. No psychotic symptoms, suicidal or homicidal ideation. Mood is improved. Affect is mood congruent. Labs: Reviewed. Imp: Schizoaffective disorder, bipolar type versus bipolar disorder mixed with psychotic features. Major depressive disorder. Anxiety disorder unspecified. Impulse control disorder unspecified. Plan: We will reduce the Cogentin from 0.5 mg b.i.d. down to 0.5 mg once a day. Rest same as before. Assessment: Vital Signs/I&O: Vital Signs Date Time Temp Pulse Resp B/P (MAP) Pulse Ox O2 Delivery O2 Flow Rate FiO2 02/11/20 06:19 97.8 77 20 136/80 (98) 98 Nasal Cannula 3.0 I & O 02/10/20 02/10/20 02/11/20 15:00 23:00 07:00 Intake Total 720 ml 960 ml Balance 720 ml 960 ml Current Medications: Meds: Current Medications Medications (Trade) Dose Ordered Sig/Carlos Route PRN Reason Start Time Stop Time Status Last Admin Dose Admin Benztropine Mesylate (Cogentin) 0.5 mg DAILY PO 02/10/20 09:00 02/10/20 09:06 I have reviewed the current psychotropics carefully including drug interactions. Risk benefit ratio favors no change other than as noted in my dictated progress note. Diagnosis: Problems: (1) Schizoaffective disorder, bipolar type (2) Anxiety disorder (3) Schizoaffective disorder, chronic condition with acute exacerbation (4) Impulse control disorder TERRENCE DANIEL MD Feb 11, 2020 07:40
--- NOTE | 2020-02-11 07:55 | PDOC ---
Exam Note: David Note: S/O: This note is a late entry for DOS 02/10/2020 covers elements not covered in my initial note. Discussed the patient with nursing staff, reviewed the chart. Also met with the patient individually in the evening on audio-visual rounds with Lulú KEEN. Nursing report was with Lulú KEEN. She slept 5-1/4 hours, did well previous night and during the day today no further complaints of dysuria. ROS: Ambulation impaired in wheelchair. No CV, GI, Pulmonary, Eye, ENT system symptoms on review. MSE: Oriented. Speech coherent. Abstraction fair. Computation impaired. Language function intact. Attention span short. No psychotic symptoms, suicidal or homicidal ideation. Mood is improved. Affect is mood congruent. Labs: Reviewed. Imp: Schizoaffective disorder, bipolar type versus bipolar disorder mixed with psychotic features. Major depressive disorder. Anxiety disorder unspecified. Impulse control disorder unspecified. Plan: Continue psychotropics from initial note. Assessment: Vital Signs/I&O: Vital Signs Date Time Temp Pulse Resp B/P (MAP) Pulse Ox O2 Delivery O2 Flow Rate FiO2 02/11/20 06:19 97.8 77 20 136/80 (98) 98 Nasal Cannula 3.0 I & O 02/10/20 02/10/20 02/11/20 15:00 23:00 07:00 Intake Total 720 ml 960 ml Balance 720 ml 960 ml Current Medications: Meds: Current Medications Medications (Trade) Dose Ordered Sig/Carlos Route PRN Reason Start Time Stop Time Status Last Admin Dose Admin Benztropine Mesylate (Cogentin) 0.5 mg DAILY PO 02/10/20 09:00 02/10/20 09:06 I have reviewed the current psychotropics carefully including drug interactions. Risk benefit ratio favors no change other than as noted in my dictated progress note. Diagnosis: Problems: (1) Schizoaffective disorder, bipolar type (2) Anxiety disorder (3) Schizoaffective disorder, chronic condition with acute exacerbation (4) Impulse control disorder TERRENCE DANIEL MD Feb 11, 2020 07:55
[2020-02-11] MEDS: ACETAMINOPHEN 325 MG TABLET PO SCH ×3 (08:44→20:17)
[2020-02-11] MEDS: SPIRONOLACTONE 25 MG TABLET PO SCH (08:45)
[2020-02-11] MEDS: CETIRIZINE HCL 10 MG TABLET PO SCH (08:45)
[2020-02-11] MEDS: ASPIRIN ENTERIC COATED 81 MG TABLET.DR. PO SCH (08:45)
[2020-02-11] MEDS: DIVALPROEX 125 MG CAP.SPRINK PO SCH ×2 (08:45→20:17)
[2020-02-11] MEDS: BENZTROPINE MESYLATE 0.5 MG TABLET PO SCH (08:45)
[2020-02-11] MEDS: LUBIPROSTONE 24 MCG CAPSULE PO SCH ×2 (08:46→18:04)
[2020-02-11] MEDS: POTASSIUM CHLORIDE 20 MEQ TABLET.ER. PO SCH ×3 (08:46→20:19)
[2020-02-11] MEDS: TOPIRAMATE 100 MG TABLET. PO SCH ×2 (08:46→20:18)
[2020-02-11] MEDS: POLYVINYL ALCOHOL/POVIDONE/PF OPHTH SOLUTION DROPERETTE. OU SCH ×3 (08:46→20:17)
[2020-02-11] MEDS: NYSTATIN 100,000 UNIT/GM TOPICAL CREAM 15GM TUBE. TP SCH ×2 (08:47→20:19)
[2020-02-11] MEDS: NYSTATIN TOPICAL POWDER 15GM BOTTLE. TP SCH ×2 (08:47→20:19)
[2020-02-11 15:43] VITALS: BP 150/72
[2020-02-11] MEDS: MIRTAZAPINE ODT 30 MG TAB.RAPDIS. PO SCH (20:17)
[2020-02-11] MEDS: LATANOPROST 0.005% OPHTH SOLUTION 2.5ML BOTTLE. OU SCH (20:17)
[2020-02-11] MEDS: QUEtiapine 100 MG TABLET. PO SCH (20:18)
[2020-02-11] MEDS: DULoxetine HCL 30 MG CAPSULE.DR PO SCH (20:20)
--- NOTE | 2020-02-11 21:57 | PDOC ---
Exam Note: David Note: Please also refer to the separate dictated note~for this date of service dictated separately.~Patient seen individually. Discussed the patient with Nursing staff reviewed the chart.~Reviewed interim history and current functioning. Reviewed vital signs,~Labs/ Radiology~and current medications noted below. Continue current treatment with the changes noted in the dictated addendum note Assessment: Vital Signs/I&O: Vital Signs Date Time Temp Pulse Resp B/P (MAP) Pulse Ox O2 Delivery O2 Flow Rate FiO2 02/11/20 15:43 98.3 79 16 150/72 (98) 97 2.0 02/11/20 06:19 Nasal Cannula I & O 02/10/20 02/10/20 02/11/20 15:00 23:00 07:00 Intake Total 720 ml 960 ml Balance 720 ml 960 ml Current Medications: I have reviewed the current psychotropics carefully including drug interactions. Risk benefit ratio favors no change other than as noted in my dictated progress note. Diagnosis: Problems: (1) Schizoaffective disorder, bipolar type (2) Anxiety disorder (3) Schizoaffective disorder, chronic condition with acute exacerbation (4) Impulse control disorder TERRENCE DANIEL MD Feb 11, 2020 21:56
[2020-02-12 05:37] VITALS: BP 143/82
[2020-02-12] MEDS: LEVOTHYROXINE 50 MCG TABLET PO SCH (06:12)
[2020-02-12] MEDS: POTASSIUM CHLORIDE 20 MEQ TABLET.ER. PO SCH ×3 (08:46→19:55)
[2020-02-12] MEDS: POLYVINYL ALCOHOL/POVIDONE/PF OPHTH SOLUTION DROPERETTE. OU SCH ×3 (08:46→19:55)
[2020-02-12] MEDS: DIVALPROEX 125 MG CAP.SPRINK PO SCH ×2 (08:47→19:58)
[2020-02-12] MEDS: TOPIRAMATE 100 MG TABLET. PO SCH ×2 (08:47→19:57)
[2020-02-12] MEDS: ASPIRIN ENTERIC COATED 81 MG TABLET.DR. PO SCH (08:47)
[2020-02-12] MEDS: metOLazone 5 MG TABLET PO SCH (08:47)
[2020-02-12] MEDS: CETIRIZINE HCL 10 MG TABLET PO SCH (08:47)
[2020-02-12] MEDS: SPIRONOLACTONE 25 MG TABLET PO SCH (08:48)
[2020-02-12] MEDS: BENZTROPINE MESYLATE 0.5 MG TABLET PO SCH (08:48)
[2020-02-12] MEDS: NYSTATIN 100,000 UNIT/GM TOPICAL CREAM 15GM TUBE. TP SCH ×2 (08:48→19:58)
[2020-02-12] MEDS: NYSTATIN TOPICAL POWDER 15GM BOTTLE. TP SCH ×2 (08:48→19:58)
[2020-02-12] MEDS: LUBIPROSTONE 24 MCG CAPSULE PO SCH ×2 (08:48→16:36)
[2020-02-12] MEDS: ACETAMINOPHEN 325 MG TABLET PO SCH ×3 (08:48→19:56)
[2020-02-12 15:33] VITALS: BP 137/81
[2020-02-12] MEDS: QUEtiapine 100 MG TABLET. PO SCH (19:56)
[2020-02-12] MEDS: MIRTAZAPINE ODT 30 MG TAB.RAPDIS. PO SCH (19:57)
[2020-02-12] MEDS: DULoxetine HCL 30 MG CAPSULE.DR PO SCH (19:57)
[2020-02-12] MEDS: LATANOPROST 0.005% OPHTH SOLUTION 2.5ML BOTTLE. OU SCH (19:59)
--- NOTE | 2020-02-12 22:46 | PDOC ---
Exam Note: David Note: S/O: This note is a late entry for DOS 02/11/2020 covers elements not covered in my initial note. This is an addendum to psychiatric progress note for DOS 02/11/2020. Discussed the patient with nursing staff, reviewed the chart. The patient was seen on audio-visual rounds in the evening with Dasha KEEN. Tiara godwin report was with Estrella KEEN. She slept 8 hours, has been pleasant, cooperative with meds. ROS: Ambulation impaired in wheelchair. No CV, GI, Pulmonary, Eye, ENT system symptoms on review. MSE: Oriented. She is pleasant, verbal and interactive, waving at me on the audio-visual round, smiling. Speech coherent. Abstraction fair. Computation impaired. Language function intact. Attention span short. No psychotic symptoms, suicidal or homicidal ideation. Mood lability is much improved. Affect is mood congruent. Labs: Reviewed. Imp: Schizoaffective disorder, bipolar type versus bipolar disorder mixed with psychotic features. Major depressive disorder. Anxiety disorder unspecified. Impulse control disorder unspecified. Plan: Continue psychotropics from initial note. Assessment: Vital Signs/I&O: Vital Signs Date Time Temp Pulse Resp B/P (MAP) Pulse Ox O2 Delivery O2 Flow Rate FiO2 02/12/20 15:33 98.5 81 16 137/81 (99) 97 2.0 02/12/20 05:37 Nasal Cannula I & O 02/11/20 02/11/20 02/12/20 15:00 23:00 07:00 Intake Total 720 ml 840 ml Balance 720 ml 840 ml Current Medications: I have reviewed the current psychotropics carefully including drug interactions. Risk benefit ratio favors no change other than as noted in my dictated progress note. Diagnosis: Problems: (1) Schizoaffective disorder, bipolar type (2) Anxiety disorder (3) Schizoaffective disorder, chronic condition with acute exacerbation (4) Impulse control disorder TERRENCE DANIEL MD Feb 12, 2020 22:46
--- NOTE | 2020-02-12 22:59 | PDOC ---
Exam Note: David Note: Please also refer to the separate dictated note~for this date of service dictated separately.~Patient seen individually. Discussed the patient with Nursing staff reviewed the chart.~Reviewed interim history and current functioning. Reviewed vital signs,~Labs/ Radiology~and current medications noted below. Continue current treatment with the changes noted in the dictated addendum note Assessment: Vital Signs/I&O: Vital Signs Date Time Temp Pulse Resp B/P (MAP) Pulse Ox O2 Delivery O2 Flow Rate FiO2 02/12/20 15:33 98.5 81 16 137/81 (99) 97 2.0 02/12/20 05:37 Nasal Cannula I & O 02/11/20 02/11/20 02/12/20 15:00 23:00 07:00 Intake Total 720 ml 840 ml Balance 720 ml 840 ml Current Medications: I have reviewed the current psychotropics carefully including drug interactions. Risk benefit ratio favors no change other than as noted in my dictated progress note. Diagnosis: Problems: (1) Schizoaffective disorder, bipolar type (2) Anxiety disorder (3) Schizoaffective disorder, chronic condition with acute exacerbation (4) Impulse control disorder TERRENCE DANIEL MD Feb 12, 2020 22:59
[2020-02-13] MEDS: LEVOTHYROXINE 50 MCG TABLET PO SCH (03:14)
[2020-02-13 06:11] VITALS: BP 121/68
[2020-02-13] MEDS: ASPIRIN ENTERIC COATED 81 MG TABLET.DR. PO SCH (08:48)
[2020-02-13] MEDS: BENZTROPINE MESYLATE 0.5 MG TABLET PO SCH (08:48)
[2020-02-13] MEDS: LUBIPROSTONE 24 MCG CAPSULE PO SCH ×2 (08:48→17:10)
[2020-02-13] MEDS: DIVALPROEX 125 MG CAP.SPRINK PO SCH ×2 (08:48→20:30)
[2020-02-13] MEDS: SPIRONOLACTONE 25 MG TABLET PO SCH (08:49)
[2020-02-13] MEDS: TOPIRAMATE 100 MG TABLET. PO SCH ×2 (08:49→20:30)
[2020-02-13] MEDS: NYSTATIN TOPICAL POWDER 15GM BOTTLE. TP SCH ×2 (08:50→20:31)
[2020-02-13] MEDS: POLYVINYL ALCOHOL/POVIDONE/PF OPHTH SOLUTION DROPERETTE. OU SCH ×3 (08:50→20:30)
[2020-02-13] MEDS: POTASSIUM CHLORIDE 20 MEQ TABLET.ER. PO SCH ×3 (08:50→20:30)
[2020-02-13] MEDS: CETIRIZINE HCL 10 MG TABLET PO SCH (08:50)
[2020-02-13] MEDS: ACETAMINOPHEN 325 MG TABLET PO SCH ×3 (08:50→20:29)
[2020-02-13] MEDS: NYSTATIN 100,000 UNIT/GM TOPICAL CREAM 15GM TUBE. TP SCH ×2 (08:50→20:31)
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
[2020-02-13 15:38] VITALS: BP 126/78
[2020-02-13] MEDS: MIRTAZAPINE ODT 30 MG TAB.RAPDIS. PO SCH (20:29)
[2020-02-13] MEDS: QUEtiapine 100 MG TABLET. PO SCH (20:29)
[2020-02-13] MEDS: DULoxetine HCL 30 MG CAPSULE.DR PO SCH (20:30)
[2020-02-13] MEDS: LATANOPROST 0.005% OPHTH SOLUTION 2.5ML BOTTLE. OU SCH (20:31)
--- NOTE | 2020-02-13 22:30 | PDOC ---
Exam Note: David Note: S/O: This note is a late entry for DOS 02/12/2020 covers elements not covered in my initial note. This is an addendum to psychiatric progress note for DOS 02/12/2020. Discussed the patient with nursing staff, reviewed the chart. The patient was seen on audio-visual rounds in the evening with Addi KEEN. Nursing report was with Dasha KEEN. She slept 7-3/4 hours, cooperative with meds. ROS: Ambulation impaired in wheelchair. No CV, GI, Pulmonary, Eye, ENT system symptoms on review. MSE: Oriented. She is pleasant, verbal and interactive, very appreciative that she could visit with me in the evening. Speech coherent. Abstraction fair. Computation impaired. Language function intact. Attention span short. No psychotic symptoms, suicidal or homicidal ideation. Mood lability is much improved. Affect is mood congruent. Labs: Reviewed. Imp: Schizoaffective disorder, bipolar type versus bipolar disorder mixed with psychotic features. Major depressive disorder. Anxiety disorder unspecified. Impulse control disorder unspecified. Plan: Continue psychotropics from initial note. Assessment: Vital Signs/I&O: Vital Signs Date Time Temp Pulse Resp B/P (MAP) Pulse Ox O2 Delivery O2 Flow Rate FiO2 02/13/20 15:38 98.3 72 16 126/78 (94) 96 Nasal Cannula 2.0 I & O 02/12/20 02/12/20 02/13/20 15:00 23:00 07:00 Intake Total 960 ml 420 ml Balance 960 ml 420 ml Current Medications: I have reviewed the current psychotropics carefully including drug interactions. Risk benefit ratio favors no change other than as noted in my dictated progress note. Diagnosis: Problems: (1) Schizoaffective disorder, bipolar type (2) Acute UTI (3) Anxiety disorder (4) Schizoaffective disorder, chronic condition with acute exacerbation (5) Impulse control disorder TERRENCE DANIEL MD Feb 13, 2020 22:30
--- NOTE | 2020-02-13 22:31 | PDOC ---
Exam Note: David Note: Please also refer to the separate dictated note~for this date of service dictated separately.~Patient seen individually. Discussed the patient with Nursing staff reviewed the chart.~Reviewed interim history and current functioning. Reviewed vital signs,~Labs/ Radiology~and current medications noted below. Continue current treatment with the changes noted in the dictated addendum note Assessment: Vital Signs/I&O: Vital Signs Date Time Temp Pulse Resp B/P (MAP) Pulse Ox O2 Delivery O2 Flow Rate FiO2 02/13/20 15:38 98.3 72 16 126/78 (94) 96 Nasal Cannula 2.0 I & O 02/12/20 02/12/20 02/13/20 15:00 23:00 07:00 Intake Total 960 ml 420 ml Balance 960 ml 420 ml Current Medications: I have reviewed the current psychotropics carefully including drug interactions. Risk benefit ratio favors no change other than as noted in my dictated progress note. Diagnosis: Problems: (1) Schizoaffective disorder, bipolar type (2) Acute UTI (3) Anxiety disorder (4) Schizoaffective disorder, chronic condition with acute exacerbation (5) Impulse control disorder TERRENCE DANIEL MD Feb 13, 2020 22:30
[2020-02-14] MEDS: LEVOTHYROXINE 50 MCG TABLET PO SCH (06:06)
[2020-02-14 06:30] VITALS: BP 126/83
[2020-02-14] MEDS: NYSTATIN 100,000 UNIT/GM TOPICAL CREAM 15GM TUBE. TP SCH ×2 (09:00→20:31)
[2020-02-14] MEDS: ACETAMINOPHEN 325 MG TABLET PO SCH ×3 (09:52→20:30)
[2020-02-14] MEDS: DIVALPROEX 125 MG CAP.SPRINK PO SCH ×2 (09:52→20:29)
[2020-02-14] MEDS: CETIRIZINE HCL 10 MG TABLET PO SCH (09:52)
[2020-02-14] MEDS: LUBIPROSTONE 24 MCG CAPSULE PO SCH ×2 (09:52→16:23)
[2020-02-14] MEDS: BENZTROPINE MESYLATE 0.5 MG TABLET PO SCH (09:52)
[2020-02-14] MEDS: TOPIRAMATE 100 MG TABLET. PO SCH ×2 (09:52→20:30)
[2020-02-14] MEDS: ASPIRIN ENTERIC COATED 81 MG TABLET.DR. PO SCH (09:53)
[2020-02-14] MEDS: SPIRONOLACTONE 25 MG TABLET PO SCH (09:53)
[2020-02-14] MEDS: POLYVINYL ALCOHOL/POVIDONE/PF OPHTH SOLUTION DROPERETTE. OU SCH ×3 (09:53→20:31)
[2020-02-14] MEDS: POTASSIUM CHLORIDE 20 MEQ TABLET.ER. PO SCH ×3 (09:53→20:30)
[2020-02-14] MEDS: NYSTATIN TOPICAL POWDER 15GM BOTTLE. TP SCH ×2 (09:54→20:31)
[2020-02-14 15:59] VITALS: BP 118/76
[2020-02-14] MEDS: DULoxetine HCL 30 MG CAPSULE.DR PO SCH (20:30)
[2020-02-14] MEDS: QUEtiapine 100 MG TABLET. PO SCH (20:30)
[2020-02-14] MEDS: MIRTAZAPINE ODT 30 MG TAB.RAPDIS. PO SCH (20:31)
[2020-02-14] MEDS: LATANOPROST 0.005% OPHTH SOLUTION 2.5ML BOTTLE. OU SCH (20:31)
--- NOTE | 2020-02-14 22:01 | PDOC ---
Exam Note: David Note: Please also refer to the separate dictated note~for this date of service dictated separately.~Patient seen individually. Discussed the patient with Nursing staff reviewed the chart.~Reviewed interim history and current functioning. Reviewed vital signs,~Labs/ Radiology~and current medications noted below. Continue current treatment with the changes noted in the dictated addendum note Assessment: Vital Signs/I&O: Vital Signs Date Time Temp Pulse Resp B/P (MAP) Pulse Ox O2 Delivery O2 Flow Rate FiO2 02/14/20 15:59 98.1 73 18 118/76 (90) 94 2.0 02/14/20 06:30 Room Air I & O 02/13/20 02/13/20 02/14/20 15:00 23:00 07:00 Intake Total 960 ml 720 ml Balance 960 ml 720 ml Current Medications: I have reviewed the current psychotropics carefully including drug interactions. Risk benefit ratio favors no change other than as noted in my dictated progress note. Diagnosis: Problems: (1) Schizoaffective disorder, bipolar type (2) Anxiety disorder (3) Schizoaffective disorder, chronic condition with acute exacerbation (4) Impulse control disorder TERRENCE DANIEL MD Feb 14, 2020 22:01
[2020-02-15] MEDS: LEVOTHYROXINE 50 MCG TABLET PO SCH (05:40)
[2020-02-15 06:00] VITALS: BP 132/81
[2020-02-15] MEDS: LUBIPROSTONE 24 MCG CAPSULE PO SCH ×2 (08:19→17:15)
[2020-02-15] MEDS: POLYVINYL ALCOHOL/POVIDONE/PF OPHTH SOLUTION DROPERETTE. OU SCH ×3 (08:19→20:08)
[2020-02-15] MEDS: SPIRONOLACTONE 25 MG TABLET PO SCH (08:21)
[2020-02-15] MEDS: DIVALPROEX 125 MG CAP.SPRINK PO SCH ×2 (08:21→20:07)
[2020-02-15] MEDS: BENZTROPINE MESYLATE 0.5 MG TABLET PO SCH (08:21)
[2020-02-15] MEDS: ASPIRIN ENTERIC COATED 81 MG TABLET.DR. PO SCH (08:21)
[2020-02-15] MEDS: POTASSIUM CHLORIDE 20 MEQ TABLET.ER. PO SCH ×3 (08:22→20:07)
[2020-02-15] MEDS: CETIRIZINE HCL 10 MG TABLET PO SCH (08:23)
[2020-02-15] MEDS: TOPIRAMATE 100 MG TABLET. PO SCH ×2 (08:23→20:08)
[2020-02-15] MEDS: ACETAMINOPHEN 325 MG TABLET PO SCH ×3 (08:23→20:08)
[2020-02-15] MEDS: NYSTATIN TOPICAL POWDER 15GM BOTTLE. TP SCH ×2 (08:24→20:08)
[2020-02-15] MEDS: NYSTATIN 100,000 UNIT/GM TOPICAL CREAM 15GM TUBE. TP SCH ×2 (08:24→20:08)
--- NOTE | 2020-02-15 08:42 | PDOC ---
Exam Note: David Note: S/O: This note is a late entry for DOS 02/13/2020 covers elements not covered in my initial note. This is Treatment team meeting was done in the morning with Ellen Fleming, and Lilia Loyd along with Estrella KEEN and Teetee from [facility]. Discussed the patient with nursing staff, reviewed the chart. The patient was seen on audio-visual rounds in the evening with Addi KEEN. She is alert and oriented x4, cooperative. Appetite is 95%. Sleep 7 hours average. She slept 5-1/4 hours previous night. ROS: Ambulation impaired in wheelchair. No CV, GI, Pulmonary, Eye, ENT system symptoms on review. MSE: Oriented reasonably. She is alert and oriented x4. Speech coherent somewhat pressured at times, appropriate. She had a shower and did well with this. Abstraction fair. Computation impaired. Language function intact. Attention span short. No psychotic symptoms, suicidal or homicidal ideation. Mood lability is much improved. Affect is mood congruent. Labs: Reviewed. Imp: Schizoaffective disorder, bipolar type versus bipolar disorder mixed with psychotic features. Major depressive disorder. Anxiety disorder unspecified. Impulse control disorder unspecified. Plan: Continue psychotropics from initial note. Assessment: Vital Signs/I&O: Vital Signs Date Time Temp Pulse Resp B/P (MAP) Pulse Ox O2 Delivery O2 Flow Rate FiO2 02/15/20 06:00 97.3 74 18 132/81 (98) 94 Nasal Cannula 3.0 I & O 02/14/20 02/14/20 02/15/20 15:00 23:00 07:00 Intake Total 960 ml 720 ml Balance 960 ml 720 ml Current Medications: I have reviewed the current psychotropics carefully including drug interactions. Risk benefit ratio favors no change other than as noted in my dictated progress note. Diagnosis: Problems: (1) Schizoaffective disorder, bipolar type (2) Anxiety disorder (3) Schizoaffective disorder, chronic condition with acute exacerbation (4) Impulse control disorder TERRENCE DANIEL MD Feb 15, 2020 08:42
--- NOTE | 2020-02-15 08:58 | PDOC ---
Exam Note: David Note: S/O: This note is a late entry for DOS 02/14/2020 covers elements not covered in my initial note. Discussed the patient with nursing staff, reviewed the chart. The patient was seen on audio-visual rounds in the evening with Liya KEEN. Nursing report was with Addi KEEN. ROS: Ambulation impaired in wheelchair. No CV, GI, Pulmonary, Eye, ENT system symptoms on review. MSE: Oriented. She is pleasant, verbal and interactive during the audio-visual round. Speech coherent. Abstraction fair. Computation impaired. Language function intact. Attention span short. No psychotic symptoms, suicidal or homicidal ideation. Mood lability is much improved. Affect is mood congruent, less anxious. Labs: Reviewed. Imp: Schizoaffective disorder, bipolar type versus bipolar disorder mixed with psychotic features. Major depressive disorder. Anxiety disorder unspecified. Impulse control disorder unspecified. Plan: Continue psychotropics from initial note. Assessment: Vital Signs/I&O: Vital Signs Date Time Temp Pulse Resp B/P (MAP) Pulse Ox O2 Delivery O2 Flow Rate FiO2 02/15/20 06:00 97.3 74 18 132/81 (98) 94 Nasal Cannula 3.0 I & O 02/14/20 02/14/20 02/15/20 15:00 23:00 07:00 Intake Total 960 ml 720 ml Balance 960 ml 720 ml Current Medications: I have reviewed the current psychotropics carefully including drug interactions. Risk benefit ratio favors no change other than as noted in my dictated progress note. Diagnosis: Problems: (1) Schizoaffective disorder, bipolar type (2) Anxiety disorder (3) Schizoaffective disorder, chronic condition with acute exacerbation (4) Impulse control disorder TERRENCE DANIEL MD Feb 15, 2020 08:57
[2020-02-15 09:41] LABS: ALBUMIN 2.7 g/dL (3.4-5.0); ALBUMIN/GLOBULIN RATIO 0.6 (1.0-1.7); CREATININE 0.9 mg/dL (0.6-1.0); GFR 62.5; POTASSIUM 3.7 mmol/L (3.5-5.1); TOTAL BILIRUBIN 0.2 mg/dL (0.2-1.0); TOTAL PROTEIN 7.2 g/dL (6.4-8.2)
[2020-02-15 10:02] LABS: BASO % 1 % (0-3); EOS # 0.2 x10^3/uL (0.0-0.7); EOS % 5 % (0-3); HEMATOCRIT 38.4 % (36.0-47.0); HEMOGLOBIN 12.5 g/dL (12.0-15.5); LYMPH # 0.9 x10^3/uL (1.0-4.8); LYMPH % 26 % (24-48); MEAN CORPUSCULAR HEMOGLOBIN 30 pg (25-35); MEAN CORPUSCULAR HGB CONC 33 g/dL (31-37); MEAN CORPUSCULAR VOLUME 93 fL (79-100); MONO # 0.3 x10^3/uL (0.0-1.1); MONO % 10 % (0-9); NEUT % 58 % (31-73); PLATELET COUNT 104 x10^3/uL (140-400); RED BLOOD COUNT 4.11 x10^6/uL (3.50-5.40); WHITE BLOOD COUNT 3.4 x10^3/uL (4.0-11.0)
[2020-02-15 15:40] VITALS: BP 138/84
[2020-02-15] MEDS: QUEtiapine 100 MG TABLET. PO SCH (20:06)
[2020-02-15] MEDS: DULoxetine HCL 30 MG CAPSULE.DR PO SCH (20:07)
[2020-02-15] MEDS: MIRTAZAPINE ODT 30 MG TAB.RAPDIS. PO SCH (20:07)
[2020-02-15] MEDS: LATANOPROST 0.005% OPHTH SOLUTION 2.5ML BOTTLE. OU SCH (20:08)
--- NOTE | 2020-02-15 22:01 | PDOC ---
Exam Note: David Note: Please also refer to the separate dictated note~for this date of service dictated separately.~Patient seen individually. Discussed the patient with Nursing staff reviewed the chart.~Reviewed interim history and current functioning. Reviewed vital signs,~Labs/ Radiology~and current medications noted below. Continue current treatment with the changes noted in the dictated addendum note Assessment: Vital Signs/I&O: Vital Signs Date Time Temp Pulse Resp B/P (MAP) Pulse Ox O2 Delivery O2 Flow Rate FiO2 02/15/20 15:40 98.8 79 18 138/84 (102) 96 02/15/20 06:00 Nasal Cannula 3.0 I & O 02/14/20 02/14/20 02/15/20 15:00 23:00 07:00 Intake Total 960 ml 720 ml Balance 960 ml 720 ml Labs: Laboratory Tests Test 02/15/20 09:08 White Blood Count 3.4 x10^3/uL (4.0-11.0) L Red Blood Count 4.11 x10^6/uL (3.50-5.40) Hemoglobin 12.5 g/dL (12.0-15.5) Hematocrit 38.4 % (36.0-47.0) Mean Corpuscular Volume 93 fL (79-100) Mean Corpuscular Hemoglobin 30 pg (25-35) Mean Corpuscular Hemoglobin Concent 33 g/dL (31-37) Red Cell Distribution Width 15.0 % (11.5-14.5) H Platelet Count 104 x10^3/uL (140-400) L Neutrophils (%) (Auto) 58 % (31-73) Lymphocytes (%) (Auto) 26 % (24-48) Monocytes (%) (Auto) 10 % (0-9) H Eosinophils (%) (Auto) 5 % (0-3) H Basophils (%) (Auto) 1 % (0-3) Neutrophils # (Auto) 2.0 x10^3uL (1.8-7.7) Lymphocytes # (Auto) 0.9 x10^3/uL (1.0-4.8) L Monocytes # (Auto) 0.3 x10^3/uL (0.0-1.1) Eosinophils # (Auto) 0.2 x10^3/uL (0.0-0.7) Basophils # (Auto) 0.0 x10^3/uL (0.0-0.2) Sodium Level 132 mmol/L (136-145) L Potassium Level 3.7 mmol/L (3.5-5.1) Chloride Level 96 mmol/L (98-107) L Carbon Dioxide Level 32 mmol/L (21-32) Anion Gap 4 (6-14) L Blood Urea Nitrogen 16 mg/dL (7-20) Creatinine 0.9 mg/dL (0.6-1.0) Estimated GFR (Cockcroft-Gault) 62.5 BUN/Creatinine Ratio 18 (6-20) Glucose Level 116 mg/dL (70-99) H Calcium Level 8.0 mg/dL (8.5-10.1) L Total Bilirubin 0.2 mg/dL (0.2-1.0) Aspartate Amino Transferase (AST) 16 U/L (15-37) Alanine Aminotransferase (ALT) 16 U/L (14-59) Alkaline Phosphatase 66 U/L (46-116) Total Protein 7.2 g/dL (6.4-8.2) Albumin 2.7 g/dL (3.4-5.0) L Albumin/Globulin Ratio 0.6 (1.0-1.7) L Current Medications: I have reviewed the current psychotropics carefully including drug interactions. Risk benefit ratio favors no change other than as noted in my dictated progress note. Diagnosis: Problems: (1) Schizoaffective disorder, bipolar type (2) Anxiety disorder (3) Schizoaffective disorder, chronic condition with acute exacerbation (4) Impulse control disorder TERRENCE DANIEL MD Feb 15, 2020 22:01
[2020-02-16] MEDS: LEVOTHYROXINE 50 MCG TABLET PO SCH (05:28)
[2020-02-16 05:44] VITALS: BP 129/81
[2020-02-16] MEDS: ASPIRIN ENTERIC COATED 81 MG TABLET.DR. PO SCH (08:01)
[2020-02-16] MEDS: DIVALPROEX 125 MG CAP.SPRINK PO SCH ×2 (08:01→20:21)
[2020-02-16] MEDS: BENZTROPINE MESYLATE 0.5 MG TABLET PO SCH (08:02)
[2020-02-16] MEDS: TOPIRAMATE 100 MG TABLET. PO SCH ×2 (08:02→20:20)
[2020-02-16] MEDS: ACETAMINOPHEN 325 MG TABLET PO SCH ×3 (08:02→20:20)
[2020-02-16] MEDS: LUBIPROSTONE 24 MCG CAPSULE PO SCH ×2 (08:03→17:22)
[2020-02-16] MEDS: POTASSIUM CHLORIDE 20 MEQ TABLET.ER. PO SCH ×3 (08:03→20:21)
[2020-02-16] MEDS: SPIRONOLACTONE 25 MG TABLET PO SCH (08:03)
[2020-02-16] MEDS: POLYVINYL ALCOHOL/POVIDONE/PF OPHTH SOLUTION DROPERETTE. OU SCH ×3 (08:03→20:21)
[2020-02-16] MEDS: NYSTATIN 100,000 UNIT/GM TOPICAL CREAM 15GM TUBE. TP SCH ×2 (08:03→20:21)
[2020-02-16] MEDS: CETIRIZINE HCL 10 MG TABLET PO SCH (08:03)
[2020-02-16] MEDS: NYSTATIN TOPICAL POWDER 15GM BOTTLE. TP SCH ×2 (08:04→20:19)
[2020-02-16 15:47] VITALS: BP 125/68
[2020-02-16] MEDS: QUEtiapine 100 MG TABLET. PO SCH (20:20)
[2020-02-16] MEDS: DULoxetine HCL 30 MG CAPSULE.DR PO SCH (20:21)
[2020-02-16] MEDS: LATANOPROST 0.005% OPHTH SOLUTION 2.5ML BOTTLE. OU SCH (20:21)
[2020-02-16] MEDS: MIRTAZAPINE ODT 30 MG TAB.RAPDIS. PO SCH (20:21)
--- NOTE | 2020-02-16 21:52 | PDOC ---
Exam Note: David Note: Please also refer to the separate dictated note~for this date of service dictated separately.~Patient seen individually. Discussed the patient with Nursing staff reviewed the chart.~Reviewed interim history and current functioning. Reviewed vital signs,~Labs/ Radiology~and current medications noted below. Continue current treatment with the changes noted in the dictated addendum note Assessment: Vital Signs/I&O: Vital Signs Date Time Temp Pulse Resp B/P (MAP) Pulse Ox O2 Delivery O2 Flow Rate FiO2 02/16/20 15:47 98.2 76 20 125/68 (87) 96 2.0 02/16/20 05:44 Nasal Cannula I & O 02/15/20 02/15/20 02/16/20 15:00 23:00 07:00 Intake Total 720 ml 540 ml Balance 720 ml 540 ml Current Medications: I have reviewed the current psychotropics carefully including drug interactions. Risk benefit ratio favors no change other than as noted in my dictated progress note. Diagnosis: Problems: (1) Schizoaffective disorder, bipolar type (2) Anxiety disorder (3) Schizoaffective disorder, chronic condition with acute exacerbation (4) Impulse control disorder TERRENCE DANIEL MD Feb 16, 2020 21:52
[2020-02-17] MEDS: LEVOTHYROXINE 50 MCG TABLET PO SCH (05:34)
[2020-02-17 05:56] VITALS: BP 112/78
[2020-02-17] MEDS: LUBIPROSTONE 24 MCG CAPSULE PO SCH ×2 (08:27→16:47)
[2020-02-17] MEDS: SPIRONOLACTONE 25 MG TABLET PO SCH (08:28)
[2020-02-17] MEDS: DIVALPROEX 125 MG CAP.SPRINK PO SCH ×2 (08:28→20:13)
[2020-02-17] MEDS: POLYVINYL ALCOHOL/POVIDONE/PF OPHTH SOLUTION DROPERETTE. OU SCH ×3 (08:28→20:11)
[2020-02-17] MEDS: ASPIRIN ENTERIC COATED 81 MG TABLET.DR. PO SCH (08:28)
[2020-02-17] MEDS: BENZTROPINE MESYLATE 0.5 MG TABLET PO SCH (08:28)
[2020-02-17] MEDS: TOPIRAMATE 100 MG TABLET. PO SCH ×2 (08:29→20:13)
[2020-02-17] MEDS: CETIRIZINE HCL 10 MG TABLET PO SCH (08:29)
[2020-02-17] MEDS: NYSTATIN 100,000 UNIT/GM TOPICAL CREAM 15GM TUBE. TP SCH ×2 (08:29→20:13)
[2020-02-17] MEDS: POTASSIUM CHLORIDE 20 MEQ TABLET.ER. PO SCH ×3 (08:29→20:11)
[2020-02-17] MEDS: ACETAMINOPHEN 325 MG TABLET PO SCH ×3 (08:29→20:12)
[2020-02-17] MEDS: NYSTATIN TOPICAL POWDER 15GM BOTTLE. TP SCH ×2 (08:30→20:11)
--- NOTE | 2020-02-17 08:48 | PDOC ---
Exam Note: David Note: S/O: This note is a late entry for DOS 02/15/2020 covers elements not covered in my initial note. Discussed the patient with nursing staff, reviewed the chart. The patient was seen on audio-visual rounds in the evening with Lulú KEEN. Nursing report was with Lulú KEEN. ROS: Ambulation impaired in wheelchair. No CV, GI, Pulmonary, Eye, ENT system symptoms on review. MSE: During individual visit, the patient had many questions about difference between illusions and delusions. She stated how several years ago she was noted to have delusions and was sent to the psychiatric hospital because she believes certain things that other people did not agree to. We had discussion about this and let the nursing staff explore this further with her at night. Speech coherent. Abstraction fair. Computation impaired. Language function intact. Attention span short. No psychotic symptoms, suicidal or homicidal ideation. Mood lability is much improved. Affect is mood congruent, less anxious. Labs: Reviewed. WBC has dropped to 3.2 and sodium was 132. We will defer to Dr. Coelho and we will have a pharmacy consult to make sure there is no psychotropic that could be contributing to this. Imp: Schizoaffective disorder, bipolar type versus bipolar disorder mixed with psychotic features. Major depressive disorder. Anxiety disorder unspecified. Impulse control disorder unspecified. Plan: Continue psychotropics from initial note. Assessment: Vital Signs/I&O: Vital Signs Date Time Temp Pulse Resp B/P (MAP) Pulse Ox O2 Delivery O2 Flow Rate FiO2 02/17/20 05:56 97.4 73 18 112/78 (89) 96 2.0 02/16/20 05:44 Nasal Cannula l I & O 02/16/20 02/16/20 02/17/20 15:00 23:00 07:00 Intake Total 820 ml 720 ml Balance 820 ml 720 ml Current Medications: I have reviewed the current psychotropics carefully including drug interactions. Risk benefit ratio favors no change other than as noted in my dictated progress note. Diagnosis: Problems: (1) Schizoaffective disorder, bipolar type (2) Anxiety disorder (3) Schizoaffective disorder, chronic condition with acute exacerbation (4) Impulse control disorder TERRENCE DANIEL MD Feb 17, 2020 08:48
--- NOTE | 2020-02-17 08:59 | PDOC ---
Exam Note: David Note: S/O: This note is a late entry for DOS 02/16/2020 covers elements not covered in my initial note. Discussed the patient with nursing staff, reviewed the chart. The patient was seen on audio-visual rounds in the evening with Liya KEEN. Nursing report was with Primo KEEN. ROS: Ambulation impaired in wheelchair. No CV, GI, Pulmonary, Eye, ENT system symptoms on review. MSE: The patient is not talking about her past delusions or illusions and seemed quite appropriate in fact. She is pleasant, verbal and interactive. Speech coherent. Abstraction fair. Computation impaired. Language function intact. Attention span short. No psychotic symptoms, suicidal or homicidal ideation. Mood lability is much improved. Affect is mood congruent, less anxious. Labs: Reviewed. Imp: Schizoaffective disorder, bipolar type versus bipolar disorder mixed with psychotic features. Major depressive disorder. Anxiety disorder unspecified. Impulse control disorder unspecified. Plan: Continue psychotropics from initial note. Assessment: Vital Signs/I&O: Vital Signs Date Time Temp Pulse Resp B/P (MAP) Pulse Ox O2 Delivery O2 Flow Rate FiO2 02/17/20 05:56 97.4 73 18 112/78 (89) 96 2.0 02/16/20 05:44 Nasal Cannula I & O 02/16/20 02/16/20 02/17/20 15:00 23:00 07:00 Intake Total 820 ml 720 ml Balance 820 ml 720 ml Current Medications: I have reviewed the current psychotropics carefully including drug interactions. Risk benefit ratio favors no change other than as noted in my dictated progress note. Diagnosis: Problems: (1) Schizoaffective disorder, bipolar type (2) Anxiety disorder (3) Schizoaffective disorder, chronic condition with acute exacerbation (4) Impulse control disorder TERRENCE DANIEL MD Feb 17, 2020 08:59
[2020-02-17 15:41] VITALS: BP 136/78
[2020-02-17] MEDS: LATANOPROST 0.005% OPHTH SOLUTION 2.5ML BOTTLE. OU SCH (20:11)
[2020-02-17] MEDS: QUEtiapine 100 MG TABLET. PO SCH (20:12)
[2020-02-17] MEDS: MIRTAZAPINE ODT 30 MG TAB.RAPDIS. PO SCH (20:13)
[2020-02-17] MEDS: DULoxetine HCL 30 MG CAPSULE.DR PO SCH (20:13)
--- NOTE | 2020-02-17 22:55 | PDOC ---
Exam Note: David Note: S/O: This note covers elements not covered in my initial note. Discussed the patient with nursing staff, reviewed the chart. The patient was seen on audio- visual rounds in the evening with Addi KEEN. Nursing report was with Lulú KEEN. She slept 7-1/2 hours. ROS: Ambulation impaired in wheelchair. No CV, GI, Pulmonary, Eye, ENT system symptoms on review. MSE: The patient is quite verbal, open, pleasant, and forthcoming, smiling and appreciative of her care and happy that I was able to visit with her every day. Speech coherent. Abstraction fair. Computation impaired. Language function intact. Attention span short. No psychotic symptoms, suicidal or homicidal ideation. Mood lability is much improved. Affect is mood congruent, less anxious. Labs: Reviewed. Imp: Schizoaffective disorder, bipolar type versus bipolar disorder mixed with psychotic features. Major depressive disorder. Anxiety disorder unspecified. Impulse control disorder unspecified. Plan: Continue psychotropics from initial note. According to the [facility] and CDC, the patient has to remain in the hospital for another 7 days for her quarantine due to COVID-19 exposure on the unit. Assessment: Vital Signs/I&O: Vital Signs Date Time Temp Pulse Resp B/P (MAP) Pulse Ox O2 Delivery O2 Flow Rate FiO2 02/17/20 15:41 98.1 77 18 136/78 (97) 96 2.0 02/16/20 05:44 Nasal Cannula I & O 02/16/20 02/16/20 02/17/20 15:00 23:00 07:00 Intake Total 820 ml 720 ml Balance 820 ml 720 ml Current Medications: I have reviewed the current psychotropics carefully including drug interactions. Risk benefit ratio favors no change other than as noted in my dictated progress note. Diagnosis: Problems: (1) Schizoaffective disorder, bipolar type (2) Anxiety disorder (3) Schizoaffective disorder, chronic condition with acute exacerbation (4) Impulse control disorder TERRENCE DANIEL MD Feb 17, 2020 22:55
[2020-02-18] MEDS: LEVOTHYROXINE 50 MCG TABLET PO SCH (05:26)
[2020-02-18 05:59] VITALS: BP 119/76
[2020-02-18] MEDS: SPIRONOLACTONE 25 MG TABLET PO SCH (08:26)
[2020-02-18] MEDS: CETIRIZINE HCL 10 MG TABLET PO SCH (08:26)
[2020-02-18] MEDS: ASPIRIN ENTERIC COATED 81 MG TABLET.DR. PO SCH (08:27)
[2020-02-18] MEDS: POTASSIUM CHLORIDE 20 MEQ TABLET.ER. PO SCH ×3 (08:27→19:45)
[2020-02-18] MEDS: ACETAMINOPHEN 325 MG TABLET PO SCH ×3 (08:27→19:44)
[2020-02-18] MEDS: TOPIRAMATE 100 MG TABLET. PO SCH ×2 (08:27→19:44)
[2020-02-18] MEDS: BENZTROPINE MESYLATE 0.5 MG TABLET PO SCH (08:27)
[2020-02-18] MEDS: NYSTATIN TOPICAL POWDER 15GM BOTTLE. TP SCH ×2 (08:28→19:43)
[2020-02-18] MEDS: POLYVINYL ALCOHOL/POVIDONE/PF OPHTH SOLUTION DROPERETTE. OU SCH ×3 (08:28→19:43)
[2020-02-18] MEDS: DIVALPROEX 125 MG CAP.SPRINK PO SCH ×2 (08:28→19:44)
[2020-02-18] MEDS: LUBIPROSTONE 24 MCG CAPSULE PO SCH ×2 (08:31→17:13)
[2020-02-18] MEDS: NYSTATIN 100,000 UNIT/GM TOPICAL CREAM 15GM TUBE. TP SCH ×2 (09:55→19:45)
[2020-02-18 15:38] VITALS: BP 135/79
[2020-02-18] MEDS: LATANOPROST 0.005% OPHTH SOLUTION 2.5ML BOTTLE. OU SCH (19:43)
[2020-02-18] MEDS: MIRTAZAPINE ODT 30 MG TAB.RAPDIS. PO SCH (19:45)
[2020-02-18] MEDS: QUEtiapine 100 MG TABLET. PO SCH (19:45)
[2020-02-18] MEDS: DULoxetine HCL 30 MG CAPSULE.DR PO SCH (19:45)
--- NOTE | 2020-02-18 22:36 | PDOC ---
Exam Note: David Note: S/O: This note covers elements not covered in my initial note. Discussed the patient with nursing staff, reviewed the chart. The patient was seen on audio- visual rounds in the evening with Addi KEEN. Nursing report was with Estrella KEEN. She slept 6-3/4 hours previous night. She is very pleasant and verbal. ROS: Ambulation impaired in wheelchair. No CV, GI, Pulmonary, Eye, ENT system symptoms on review. MSE: The patient is alert and oriented x4, very pleasant, verbal and animated as I met with her individually, smiling. Speech coherent. Abstraction fair. Computation impaired. Language function intact. Attention span short. No psychotic symptoms, suicidal or homicidal ideation. Mood lability is much improved. Affect is mood congruent, less anxious. Labs: Reviewed. Imp: Schizoaffective disorder, bipolar type versus bipolar disorder mixed with psychotic features. Major depressive disorder. Anxiety disorder unspecified. Impulse control disorder unspecified. Plan: Continue psychotropics from initial note. Assessment: Vital Signs/I&O: Vital Signs Date Time Temp Pulse Resp B/P (MAP) Pulse Ox O2 Delivery O2 Flow Rate FiO2 02/18/20 15:38 98.1 74 18 135/79 (97) 96 Room Air 2.0 I & O 02/17/20 02/17/20 02/18/20 15:00 23:00 07:00 Intake Total 1200 ml 720 ml Balance 1200 ml 720 ml Current Medications: I have reviewed the current psychotropics carefully including drug interactions. Risk benefit ratio favors no change other than as noted in my dictated progress note. Diagnosis: Problems: (1) Schizoaffective disorder, bipolar type (2) Anxiety disorder (3) Schizoaffective disorder, chronic condition with acute exacerbation (4) Impulse control disorder TERRENCE DANIEL MD Feb 18, 2020 22:36
[2020-02-19] MEDS: LEVOTHYROXINE 50 MCG TABLET PO SCH (05:46)
[2020-02-19 06:17] VITALS: BP 122/79
[2020-02-19] MEDS: DIVALPROEX 125 MG CAP.SPRINK PO SCH ×2 (08:38→19:51)
[2020-02-19] MEDS: BENZTROPINE MESYLATE 0.5 MG TABLET PO SCH (08:39)
[2020-02-19] MEDS: POTASSIUM CHLORIDE 20 MEQ TABLET.ER. PO SCH ×3 (08:39→19:51)
[2020-02-19] MEDS: CETIRIZINE HCL 10 MG TABLET PO SCH (08:39)
[2020-02-19] MEDS: TOPIRAMATE 100 MG TABLET. PO SCH ×2 (08:39→19:50)
[2020-02-19] MEDS: ASPIRIN ENTERIC COATED 81 MG TABLET.DR. PO SCH (08:40)
[2020-02-19] MEDS: POLYVINYL ALCOHOL/POVIDONE/PF OPHTH SOLUTION DROPERETTE. OU SCH ×3 (08:40→19:51)
[2020-02-19] MEDS: ACETAMINOPHEN 325 MG TABLET PO SCH ×3 (08:40→19:50)
[2020-02-19] MEDS: SPIRONOLACTONE 25 MG TABLET PO SCH (08:40)
[2020-02-19] MEDS: metOLazone 5 MG TABLET PO SCH (08:40)
[2020-02-19] MEDS: NYSTATIN TOPICAL POWDER 15GM BOTTLE. TP SCH ×2 (08:44→19:51)
[2020-02-19] MEDS: LUBIPROSTONE 24 MCG CAPSULE PO SCH ×2 (08:44→17:32)
[2020-02-19] MEDS: NYSTATIN 100,000 UNIT/GM TOPICAL CREAM 15GM TUBE. TP SCH ×2 (08:45→19:51)
[2020-02-19 15:51] VITALS: BP 125/77
[2020-02-19] MEDS: MIRTAZAPINE ODT 30 MG TAB.RAPDIS. PO SCH (19:50)
[2020-02-19] MEDS: DULoxetine HCL 30 MG CAPSULE.DR PO SCH (19:50)
[2020-02-19] MEDS: QUEtiapine 100 MG TABLET. PO SCH (19:50)
[2020-02-19] MEDS: LATANOPROST 0.005% OPHTH SOLUTION 2.5ML BOTTLE. OU SCH (19:51)
--- NOTE | 2020-02-19 21:46 | PDOC ---
Exam Note: David Note: Please also refer to the separate dictated note~for this date of service dictated separately.~Patient seen individually. Discussed the patient with Nursing staff reviewed the chart.~Reviewed interim history and current functioning. Reviewed vital signs,~Labs/ Radiology~and current medications noted below. Continue current treatment with the changes noted in the dictated addendum note Assessment: Vital Signs/I&O: Vital Signs Date Time Temp Pulse Resp B/P (MAP) Pulse Ox O2 Delivery O2 Flow Rate FiO2 02/19/20 15:51 97.5 68 20 125/77 (93) 98 02/18/20 15:38 Room Air 2.0 I & O 02/18/20 02/18/20 02/19/20 14:59 22:59 06:59 Intake Total 840 ml 120 ml Balance 840 ml 120 ml Current Medications: I have reviewed the current psychotropics carefully including drug interactions. Risk benefit ratio favors no change other than as noted in my dictated progress note. Diagnosis: Problems: (1) Schizoaffective disorder, bipolar type (2) Anxiety disorder (3) Schizoaffective disorder, chronic condition with acute exacerbation (4) Impulse control disorder TERRENCE DANIEL MD Feb 19, 2020 21:46
[2020-02-20] MEDS: LEVOTHYROXINE 50 MCG TABLET PO SCH ×2 (05:24→08:15)
[2020-02-20 05:37] VITALS: BP 138/83
[2020-02-20] MEDS: ASPIRIN ENTERIC COATED 81 MG TABLET.DR. PO SCH (08:14)
[2020-02-20] MEDS: BENZTROPINE MESYLATE 0.5 MG TABLET PO SCH (08:14)
[2020-02-20] MEDS: TOPIRAMATE 100 MG TABLET. PO SCH ×2 (08:15→19:31)
[2020-02-20] MEDS: DIVALPROEX 125 MG CAP.SPRINK PO SCH ×2 (08:15→19:32)
[2020-02-20] MEDS: POTASSIUM CHLORIDE 20 MEQ TABLET.ER. PO SCH ×3 (08:15→19:31)
[2020-02-20] MEDS: ACETAMINOPHEN 325 MG TABLET PO SCH ×3 (08:15→19:31)
[2020-02-20] MEDS: NYSTATIN TOPICAL POWDER 15GM BOTTLE. TP SCH ×2 (08:16→19:32)
[2020-02-20] MEDS: NYSTATIN 100,000 UNIT/GM TOPICAL CREAM 15GM TUBE. TP SCH ×2 (08:16→19:32)
[2020-02-20] MEDS: POLYVINYL ALCOHOL/POVIDONE/PF OPHTH SOLUTION DROPERETTE. OU SCH ×3 (08:16→19:31)
[2020-02-20] MEDS: CETIRIZINE HCL 10 MG TABLET PO SCH (08:16)
[2020-02-20] MEDS: SPIRONOLACTONE 25 MG TABLET PO SCH (08:16)
[2020-02-20] MEDS: LUBIPROSTONE 24 MCG CAPSULE PO SCH ×3 (08:16→19:31)
--- NOTE | 2020-02-20 10:32 | PDOC ---
Exam Note: David Note: S/O: This note is a late entry for DOS 02/19/20 covers elements not covered in my initial note. Discussed the patient with nursing staff, reviewed the chart. The patient was seen on audio-visual rounds in the evening with Addi KEEN. Nursing report was with Estrella KEEN. She slept 7-1/2 hours previous night. Her appetite is better. She has been pleasant, interactive, cooperative. ROS: Ambulation impaired in wheelchair. No CV, , Pulmonary, Eye, ENT system symptoms on review. MSE: The patient is alert and oriented x4, very pleasant, interactive. Speech coherent. Abstraction fair. Computation impaired. Language function intact. Attention span short. No psychotic symptoms, suicidal or homicidal ideation. Mood lability is much improved. Affect is mood congruent, less anxious. Labs: Reviewed. Imp: Schizoaffective disorder, bipolar type versus bipolar disorder mixed with psychotic features. Major depressive disorder. Anxiety disorder unspecified. Impulse control disorder unspecified. Plan: Continue psychotropics from initial note. Assessment: Vital Signs/I&O: Vital Signs Date Time Temp Pulse Resp B/P (MAP) Pulse Ox O2 Delivery O2 Flow Rate FiO2 02/20/20 05:37 97.9 69 20 138/83 (101) 95 2.0 02/18/20 15:38 Room Air I & O 02/19/20 02/19/20 02/20/20 15:00 23:00 07:00 Intake Total 840 ml 360 ml Balance 840 ml 360 ml Current Medications: I have reviewed the current psychotropics carefully including drug interactions. Risk benefit ratio favors no change other than as noted in my dictated progress note. Diagnosis: Problems: (1) Schizoaffective disorder, bipolar type (2) Anxiety disorder (3) Schizoaffective disorder, chronic condition with acute exacerbation (4) Impulse control disorder TERRENCE DANIEL MD Feb 20, 2020 10:32
[2020-02-20 15:44] VITALS: BP 128/75
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
[2020-02-20] MEDS: QUEtiapine 100 MG TABLET. PO SCH (19:30)
[2020-02-20] MEDS: DULoxetine HCL 30 MG CAPSULE.DR PO SCH (19:31)
[2020-02-20] MEDS: MIRTAZAPINE ODT 30 MG TAB.RAPDIS. PO SCH (19:31)
[2020-02-20] MEDS: LATANOPROST 0.005% OPHTH SOLUTION 2.5ML BOTTLE. OU SCH (19:32)
--- NOTE | 2020-02-20 22:02 | PDOC ---
Exam Note: David Note: Please also refer to the separate dictated note~for this date of service dictated separately.~Patient seen individually. Discussed the patient with Nursing staff reviewed the chart.~Reviewed interim history and current functioning. Reviewed vital signs,~Labs/ Radiology~and current medications noted below. Continue current treatment with the changes noted in the dictated addendum note Assessment: Vital Signs/I&O: Vital Signs Date Time Temp Pulse Resp B/P (MAP) Pulse Ox O2 Delivery O2 Flow Rate FiO2 02/20/20 15:44 98.3 76 18 128/75 (92) 97 02/20/20 05:37 2.0 02/18/20 15:38 Room Air I & O 0 02/19/20 02/19/20 02/20/20 14:59 22:59 06:59 Intake Total 840 ml 360 ml Balance 840 ml 360 ml Current Medications: I have reviewed the current psychotropics carefully including drug interactions. Risk benefit ratio favors no change other than as noted in my dictated progress note. Diagnosis: Problems: (1) Schizoaffective disorder, bipolar type (2) Anxiety disorder (3) Schizoaffective disorder, chronic condition with acute exacerbation (4) Impulse control disorder TERRENCE DANIEL MD Feb 20, 2020 22:01
[2020-02-21 06:22] LABS: BASO % 1 % (0-3); EOS # 0.2 x10^3/uL (0.0-0.7); EOS % 5 % (0-3); HEMATOCRIT 40.4 % (36.0-47.0); HEMOGLOBIN 13.2 g/dL (12.0-15.5); LYMPH # 1.1 x10^3/uL (1.0-4.8); LYMPH % 27 % (24-48); MEAN CORPUSCULAR HEMOGLOBIN 30 pg (25-35); MEAN CORPUSCULAR HGB CONC 33 g/dL (31-37); MEAN CORPUSCULAR VOLUME 93 fL (79-100); MONO # 0.4 x10^3/uL (0.0-1.1); MONO % 10 % (0-9); NEUT # 2.3 x10^3uL (1.8-7.7); NEUT % 57 % (31-73); PLATELET COUNT 99 x10^3/uL (140-400); RED BLOOD COUNT 4.34 x10^6/uL (3.50-5.40); RED CELL DISTRIBUTION WIDTH 15.5 % (11.5-14.5); WHITE BLOOD COUNT 4.1 x10^3/uL (4.0-11.0)
[2020-02-21 06:23] VITALS: BP 119/71
[2020-02-21 06:32] LABS: ALBUMIN 2.8 g/dL (3.4-5.0); ALBUMIN/GLOBULIN RATIO 0.6 (1.0-1.7); CALCIUM 8.2 mg/dL (8.5-10.1); CREATININE 0.8 mg/dL (0.6-1.0); GFR 71.5; POTASSIUM 3.7 mmol/L (3.5-5.1); TOTAL BILIRUBIN 0.3 mg/dL (0.2-1.0); TOTAL PROTEIN 7.5 g/dL (6.4-8.2)
[2020-02-21] MEDS: ACETAMINOPHEN 325 MG TABLET PO SCH ×3 (07:49→19:57)
[2020-02-21] MEDS: DIVALPROEX 125 MG CAP.SPRINK PO SCH ×2 (07:49→19:58)
[2020-02-21] MEDS: POLYVINYL ALCOHOL/POVIDONE/PF OPHTH SOLUTION DROPERETTE. OU SCH ×3 (07:49→19:56)
[2020-02-21] MEDS: ASPIRIN ENTERIC COATED 81 MG TABLET.DR. PO SCH (07:49)
[2020-02-21] MEDS: CETIRIZINE HCL 10 MG TABLET PO SCH (07:49)
[2020-02-21] MEDS: TOPIRAMATE 100 MG TABLET. PO SCH ×2 (07:50→19:57)
[2020-02-21] MEDS: POTASSIUM CHLORIDE 20 MEQ TABLET.ER. PO SCH ×3 (07:50→19:57)
[2020-02-21] MEDS: BENZTROPINE MESYLATE 0.5 MG TABLET PO SCH (07:50)
[2020-02-21] MEDS: SPIRONOLACTONE 25 MG TABLET PO SCH (07:51)
[2020-02-21] MEDS: NYSTATIN TOPICAL POWDER 15GM BOTTLE. TP SCH ×2 (07:56→19:56)
[2020-02-21] MEDS: NYSTATIN 100,000 UNIT/GM TOPICAL CREAM 15GM TUBE. TP SCH ×2 (07:56→20:32)
--- NOTE | 2020-02-21 09:41 | PDOC ---
Exam Note: David Note: S/O: This note is a late entry for DOS 02/20/20 covers elements not covered in my initial note. Treatment team meeting was done in the morning with Lilia Loyd (social service assistant) and Estrella KEEN. Reviewed the patients progress, disposition plans, current psychotropics, discussed potential side-effects and drug interactions. The patient was seen on audio-visual rounds in the evening due to the COVID-19 exposure on the unit with Abena KEEN. Her appetite is 100%. Sleeping 7 hours average. She slept 6-1/4 hours previous night. She is constantly eating snacks and we addressed this. She complained of some vague chest pain which attributes to intermittent anxiety. Sodium is being low and is repeated. We will defer to Dr. Bragg for medical management. ROS: Ambulation impaired in wheelchair. No CV, , Pulmonary, Eye, ENT system symptoms on review. MSE: The patient is alert and oriented, very pleasant, smiling as I met with her. Abstraction fair. Computation impaired. Language function intact. Mood and affect is improved. No suicidal or homicidal ideation. Labs: Reviewed. Imp: Schizoaffective disorder, bipolar type versus bipolar disorder mixed with psychotic features. Major depressive disorder. Anxiety disorder unspecified. Impulse control disorder unspecified. Plan: Continue psychotropics from initial note. Discharge is for next Monday. Assessment: Vital Signs/I&O: Vital Signs Date Time Temp Pulse Resp B/P (MAP) Pulse Ox O2 Delivery O2 Flow Rate FiO2 02/21/20 06:23 97.9 66 20 119/71 (87) 97 02/20/20 05:37 2.0 02/18/20 15:38 Room Air I & O 02/20/20 02/20/20 02/21/20 15:00 23:00 07:00 Intake Total 960 ml 480 ml Balance 960 ml 480 ml Labs: Laboratory Tests Test 02/21/20 05:54 White Blood Count 4.1 x10^3/uL (4.0-11.0) Red Blood Count 4.34 x10^6/uL (3.50-5.40) Hemoglobin 13.2 g/dL (12.0-15.5) Hematocrit 40.4 % (36.0-47.0) Mean Corpuscular Volume 93 fL (79-100) Mean Corpuscular Hemoglobin 30 pg (25-35) Mean Corpuscular Hemoglobin Concent 33 g/dL (31-37) Red Cell Distribution Width 15.5 % (11.5-14.5) H Platelet Count 99 x10^3/uL (140-400) L Neutrophils (%) (Auto) 57 % (31-73) Lymphocytes (%) (Auto) 27 % (24-48) Monocytes (%) (Auto) 10 % (0-9) H Eosinophils (%) (Auto) 5 % (0-3) H Basophils (%) (Auto) 1 % (0-3) Neutrophils # (Auto) 2.3 x10^3uL (1.8-7.7) Lymphocytes # (Auto) 1.1 x10^3/uL (1.0-4.8) Monocytes # (Auto) 0.4 x10^3/uL (0.0-1.1) Eosinophils # (Auto) 0.2 x10^3/uL (0.0-0.7) Basophils # (Auto) 0.0 x10^3/uL (0.0-0.2) Sodium Level 134 mmol/L (136-145) L Potassium Level 3.7 mmol/L (3.5-5.1) Chloride Level 95 mmol/L (98-107) L Carbon Dioxide Level 38 mmol/L (21-32) H Anion Gap 1 (6-14) L Blood Urea Nitrogen 16 mg/dL (7-20) Creatinine 0.8 mg/dL (0.6-1.0) Estimated GFR (Cockcroft-Gault) 71.5 BUN/Creatinine Ratio 20 (6-20) Glucose Level 86 mg/dL (70-99) Calcium Level 8.2 mg/dL (8.5-10.1) L Total Bilirubin 0.3 mg/dL (0.2-1.0) Aspartate Amino Transferase (AST) 20 U/L (15-37) Alanine Aminotransferase (ALT) 18 U/L (14-59) Alkaline Phosphatase 66 U/L (46-116) Total Protein 7.5 g/dL (6.4-8.2) Albumin 2.8 g/dL (3.4-5.0) L Albumin/Globulin Ratio 0.6 (1.0-1.7) L Current Medications: I have reviewed the current psychotropics carefully including drug interactions. Risk benefit ratio favors no change other than as noted in my dictated progress note. Diagnosis: Problems: (1) Schizoaffective disorder, bipolar type (2) Anxiety disorder (3) Schizoaffective disorder, chronic condition with acute exacerbation (4) Impulse control disorder TERRENCE DANIEL MD Feb 21, 2020 09:41
[2020-02-21 15:43] VITALS: BP 143/76
[2020-02-21] MEDS: LUBIPROSTONE 24 MCG CAPSULE PO SCH (16:54)
[2020-02-21] MEDS: DULoxetine HCL 30 MG CAPSULE.DR PO SCH (19:56)
[2020-02-21] MEDS: QUEtiapine 100 MG TABLET. PO SCH (19:56)
[2020-02-21] MEDS: MIRTAZAPINE ODT 30 MG TAB.RAPDIS. PO SCH (19:56)
[2020-02-21] MEDS: LATANOPROST 0.005% OPHTH SOLUTION 2.5ML BOTTLE. OU SCH (19:57)
--- NOTE | 2020-02-21 21:54 | PDOC ---
Exam Note: David Note: Please also refer to the separate dictated note~for this date of service dictated separately.~Patient seen individually. Discussed the patient with Nursing staff reviewed the chart.~Reviewed interim history and current functioning. Reviewed vital signs,~Labs/ Radiology~and current medications noted below. Continue current treatment with the changes noted in the dictated addendum note Assessment: Vital Signs/I&O: Vital Signs Date Time Temp Pulse Resp B/P (MAP) Pulse Ox O2 Delivery O2 Flow Rate FiO2 02/21/20 15:43 98.3 71 18 143/76 (98) 93 3.0 02/18/20 15:38 Room Air I & O 02/20/20 02/20/20 02/21/20 15:00 23:00 07:00 Intake Total 960 ml 480 ml Balance 960 ml 480 ml Labs: Laboratory Tests Test 02/21/20 05:54 White Blood Count 4.1 x10^3/uL (4.0-11.0) Red Blood Count 4.34 x10^6/uL (3.50-5.40) Hemoglobin 13.2 g/dL (12.0-15.5) Hematocrit 40.4 % (36.0-47.0) Mean Corpuscular Volume 93 fL (79-100) Mean Corpuscular Hemoglobin 30 pg (25-35) Mean Corpuscular Hemoglobin Concent 33 g/dL (31-37) Red Cell Distribution Width 15.5 % (11.5-14.5) H Platelet Count 99 x10^3/uL (140-400) L Neutrophils (%) (Auto) 57 % (31-73) Lymphocytes (%) (Auto) 27 % (24-48) Monocytes (%) (Auto) 10 % (0-9) H Eosinophils (%) (Auto) 5 % (0-3) H Basophils (%) (Auto) 1 % (0-3) Neutrophils # (Auto) 2.3 x10^3uL (1.8-7.7) Lymphocytes # (Auto) 1.1 x10^3/uL (1.0-4.8) Monocytes # (Auto) 0.4 x10^3/uL (0.0-1.1) Eosinophils # (Auto) 0.2 x10^3/uL (0.0-0.7) Basophils # (Auto) 0.0 x10^3/uL (0.0-0.2) Sodium Level 134 mmol/L (136-145) L Potassium Level 3.7 mmol/L (3.5-5.1) Chloride Level 95 mmol/L (98-107) L Carbon Dioxide Level 38 mmol/L (21-32) H Anion Gap 1 (6-14) L Blood Urea Nitrogen 16 mg/dL (7-20) Creatinine 0.8 mg/dL (0.6-1.0) Estimated GFR (Cockcroft-Gault) 71.5 BUN/Creatinine Ratio 20 (6-20) Glucose Level 86 mg/dL (70-99) Calcium Level 8.2 mg/dL (8.5-10.1) L Total Bilirubin 0.3 mg/dL (0.2-1.0) Aspartate Amino Transferase (AST) 20 U/L (15-37) Alanine Aminotransferase (ALT) 18 U/L (14-59) Alkaline Phosphatase 66 U/L (46-116) Total Protein 7.5 g/dL (6.4-8.2) Albumin 2.8 g/dL (3.4-5.0) L Albumin/Globulin Ratio 0.6 (1.0-1.7) L Current Medications: I have reviewed the current psychotropics carefully including drug interactions. Risk benefit ratio favors no change other than as noted in my dictated progress note. Diagnosis: Problems: (1) Schizoaffective disorder, bipolar type (2) Anxiety disorder (3) Schizoaffective disorder, chronic condition with acute exacerbation (4) Impulse control disorder TERRENCE DANIEL MD Feb 21, 2020 21:54
[2020-02-22 06:18] VITALS: BP 123/74
[2020-02-22] MEDS: ASPIRIN ENTERIC COATED 81 MG TABLET.DR. PO SCH (07:56)
[2020-02-22] MEDS: POTASSIUM CHLORIDE 20 MEQ TABLET.ER. PO SCH ×3 (07:56→20:29)
[2020-02-22] MEDS: LEVOTHYROXINE 50 MCG TABLET PO SCH (07:56)
[2020-02-22] MEDS: TOPIRAMATE 100 MG TABLET. PO SCH ×2 (07:56→20:29)
[2020-02-22] MEDS: ACETAMINOPHEN 325 MG TABLET PO SCH ×3 (07:56→20:29)
[2020-02-22] MEDS: SPIRONOLACTONE 25 MG TABLET PO SCH (07:57)
[2020-02-22] MEDS: CETIRIZINE HCL 10 MG TABLET PO SCH (07:57)
[2020-02-22] MEDS: DIVALPROEX 125 MG CAP.SPRINK PO SCH ×2 (07:57→20:28)
[2020-02-22] MEDS: POLYVINYL ALCOHOL/POVIDONE/PF OPHTH SOLUTION DROPERETTE. OU SCH ×3 (07:57→20:28)
[2020-02-22] MEDS: BENZTROPINE MESYLATE 0.5 MG TABLET PO SCH (07:58)
[2020-02-22] MEDS: NYSTATIN TOPICAL POWDER 15GM BOTTLE. TP SCH ×2 (07:59→20:30)
[2020-02-22] MEDS: LUBIPROSTONE 24 MCG CAPSULE PO SCH ×2 (07:59→17:33)
[2020-02-22] MEDS: NYSTATIN 100,000 UNIT/GM TOPICAL CREAM 15GM TUBE. TP SCH ×2 (07:59→20:30)
[2020-02-22 15:34] VITALS: BP 147/75
[2020-02-22] MEDS: LATANOPROST 0.005% OPHTH SOLUTION 2.5ML BOTTLE. OU SCH (20:28)
[2020-02-22] MEDS: MIRTAZAPINE ODT 30 MG TAB.RAPDIS. PO SCH (20:29)
[2020-02-22] MEDS: QUEtiapine 100 MG TABLET. PO SCH (20:30)
[2020-02-22] MEDS: DULoxetine HCL 30 MG CAPSULE.DR PO SCH (20:31)
--- NOTE | 2020-02-22 22:50 | PDOC ---
Exam Note: David Note: Please also refer to the separate dictated note~for this date of service dictated separately.~Patient seen individually. Discussed the patient with Nursing staff reviewed the chart.~Reviewed interim history and current functioning. Reviewed vital signs,~Labs/ Radiology~and current medications noted below. Continue current treatment with the changes noted in the dictated addendum note Assessment: Vital Signs/I&O: Vital Signs Date Time Temp Pulse Resp B/P (MAP) Pulse Ox O2 Delivery O2 Flow Rate FiO2 02/22/20 15:34 98.0 72 16 147/75 (99) 97 Nasal Cannula 2.0 I & O 02/21/20 02/21/20 02/22/20 15:00 23:00 07:00 Intake Total 960 ml 840 ml Balance 960 ml 840 ml Current Medications: I have reviewed the current psychotropics carefully including drug interactions. Risk benefit ratio favors no change other than as noted in my dictated progress note. Diagnosis: Problems: (1) Schizoaffective disorder, bipolar type (2) Anxiety disorder (3) Schizoaffective disorder, chronic condition with acute exacerbation (4) Impulse control disorder TERRENCE DANIEL MD Feb 22, 2020 22:50
--- NOTE | 2020-02-22 22:50 | PDOC ---
Exam Note: David Note: S/O: This note is a late entry for DOS 02/21/2020 covers elements not covered in my initial note. The patient was seen on audio-visual rounds in the evening with Liya RN. Discussed the patient with nursing staff reviewed the chart. Nursing report was with Liya KEEN. Her COVID-19 swab is being repeated as re quested by the halfway to have two negative swabs before she can be readmitted to the halfway next week and it needs to be 24 hours apart. ROS: Ambulation impaired in wheelchair. No CV, , Pulmonary, Eye system symptoms on review. She complains of being tired, has been a dreary day and does seem to do better when there is sunshine. MSE: The patient was lying in bed as I met with her. Despite the above withdrawal she is animated, verbal during the individual visit. She is alert and oriented, very pleasant. Abstraction fair. Computation impaired. Language function intact. Mood and affect is improved. No suicidal or homicidal ideation. Labs: Reviewed. Imp: Schizoaffective disorder, bipolar type versus bipolar disorder mixed with psychotic features. Major depressive disorder. Anxiety disorder unspecified. Impulse control disorder unspecified. Plan: Continue psychotropics from initial note. Assessment: Vital Signs/I&O: Vital Signs Date Time Temp Pulse Resp B/P (MAP) Pulse Ox O2 Delivery O2 Flow Rate FiO2 02/22/20 15:34 98.0 72 16 147/75 (99) 97 Nasal Cannula 2.0 I & O 02/21/20 02/21/20 02/22/20 15:00 23:00 07:00 Intake Total 960 ml 840 ml Balance 960 ml 840 ml Current Medications: I have reviewed the current psychotropics carefully including drug interactions. Risk benefit ratio favors no change other than as noted in my dictated progress note. Diagnosis: Problems: (1) Schizoaffective disorder, bipolar type (2) Anxiety disorder (3) Schizoaffective disorder, chronic condition with acute exacerbation (4) Impulse control disorder TERRENCE DANIEL MD Feb 22, 2020 22:50
[2020-02-23] MEDS: LEVOTHYROXINE 50 MCG TABLET PO SCH (05:36)
[2020-02-23 06:01] VITALS: BP 130/79
[2020-02-23] MEDS: POTASSIUM CHLORIDE 20 MEQ TABLET.ER. PO SCH ×3 (07:17→20:08)
[2020-02-23] MEDS: ASPIRIN ENTERIC COATED 81 MG TABLET.DR. PO SCH (07:17)
[2020-02-23] MEDS: CETIRIZINE HCL 10 MG TABLET PO SCH (07:17)
[2020-02-23] MEDS: ACETAMINOPHEN 325 MG TABLET PO SCH ×3 (07:17→20:09)
[2020-02-23] MEDS: SPIRONOLACTONE 25 MG TABLET PO SCH (07:17)
[2020-02-23] MEDS: TOPIRAMATE 100 MG TABLET. PO SCH ×2 (07:18→20:10)
[2020-02-23] MEDS: DIVALPROEX 125 MG CAP.SPRINK PO SCH ×2 (07:18→20:10)
[2020-02-23] MEDS: POLYVINYL ALCOHOL/POVIDONE/PF OPHTH SOLUTION DROPERETTE. OU SCH ×3 (07:18→20:06)
[2020-02-23] MEDS: LUBIPROSTONE 24 MCG CAPSULE PO SCH ×2 (07:18→16:41)
[2020-02-23] MEDS: BENZTROPINE MESYLATE 0.5 MG TABLET PO SCH (07:18)
[2020-02-23] MEDS: NYSTATIN 100,000 UNIT/GM TOPICAL CREAM 15GM TUBE. TP SCH ×2 (07:19→20:06)
[2020-02-23] MEDS: NYSTATIN TOPICAL POWDER 15GM BOTTLE. TP SCH ×2 (07:19→20:05)
[2020-02-23 16:24] VITALS: BP 139/84
[2020-02-23] MEDS: QUEtiapine 100 MG TABLET. PO SCH (20:06)
[2020-02-23] MEDS: LATANOPROST 0.005% OPHTH SOLUTION 2.5ML BOTTLE. OU SCH (20:06)
[2020-02-23] MEDS: MIRTAZAPINE ODT 30 MG TAB.RAPDIS. PO SCH (20:08)
[2020-02-23] MEDS: DULoxetine HCL 30 MG CAPSULE.DR PO SCH (20:09)
--- NOTE | 2020-02-23 22:49 | PDOC ---
Exam Note: David Note: S/O: This note is a late entry for DOS 02/22/2020 covers elements not covered in my initial note. The patient was seen on audio-visual rounds in the evening with Lulú KEEN. Discussed the patient with nursing staff reviewed the chart. Nursing report was with Liya KEEN. Overall the patient has been doing reas onably well. She went out in the sunshine earlier in the day. Has been much more animated very verbal as I met with her in the evening. ROS: Ambulation impaired in wheelchair. No CV, , Pulmonary, Eye system symptoms on review. MSE: The patient has been reasonably well, animated, verbal during the individual visit. She is alert and oriented, very pleasant. Abstraction fair. Computation impaired. Language function intact. Mood and affect is improved. No suicidal or homicidal ideation. Labs: Reviewed. Imp: Schizoaffective disorder, bipolar type versus bipolar disorder mixed with psychotic features. Major depressive disorder. Anxiety disorder unspecified. Impulse control disorder unspecified. Plan: Continue psychotropics from initial note. Assessment: Vital Signs/I&O: Vital Signs Date Time Temp Pulse Resp B/P (MAP) Pulse Ox O2 Delivery O2 Flow Rate FiO2 02/23/20 16:24 98.2 74 18 139/84 (102) 98 02/23/20 06:01 2.0 02/22/20 15:34 Nasal Cannula I & O 02/22/20 02/22/20 02/23/20 15:00 23:00 07:00 Intake Total 960 ml 840 ml Balance 960 ml 840 ml Current Medications: I have reviewed the current psychotropics carefully including drug interactions. Risk benefit ratio favors no change other than as noted in my dictated progress note. Diagnosis: Problems: (1) Schizoaffective disorder, bipolar type (2) Anxiety disorder (3) Schizoaffective disorder, chronic condition with acute exacerbation (4) Impulse control disorder TERRENCE DANIEL MD Feb 23, 2020 22:49
--- NOTE | 2020-02-23 22:51 | PDOC ---
Exam Note: David Note: S/O: This note of 02/23/2020 covers elements not covered in my initial note. The patient was seen on audio-visual rounds in the evening with Tamica KEEN. Discussed the patient with nursing staff reviewed the chart. Nursing report was with Arlyn KEEN. I met with the patient in her room, quite animated, verbal and we discussed transition to shelter this coming week. ROS: Ambulation impaired in wheelchair. No CV, , Pulmonary, Eye system symptoms on review. MSE: The patient was pleasant, verbal and animated. Speech coherent. Abstraction fair. Computation impaired. Language function intact. Mood and affect is improved. No suicidal or homicidal ideation. Labs: Reviewed. Imp: Schizoaffective disorder, bipolar type versus bipolar disorder mixed with psychotic features. Major depressive disorder. Anxiety disorder unspecified. Impulse control disorder unspecified. Plan: Continue psychotropics from initial note. Transition to shelter this coming week. Assessment: Vital Signs/I&O: Vital Signs Date Time Temp Pulse Resp B/P (MAP) Pulse Ox O2 Delivery O2 Flow Rate FiO2 02/23/20 16:24 98.2 74 18 139/84 (102) 98 02/23/20 06:01 2.0 02/22/20 15:34 Nasal Cannula I & O 02/22/20 02/22/20 02/23/20 15:00 23:00 07:00 Intake Total 960 ml 840 ml Balance 960 ml 840 ml Current Medications: I have reviewed the current psychotropics carefully including drug interactions. Risk benefit ratio favors no change other than as noted in my dictated progress note. Diagnosis: Problems: (1) Schizoaffective disorder, bipolar type (2) Anxiety disorder (3) Schizoaffective disorder, chronic condition with acute exacerbation (4) Impulse control disorder TERRENCE DANIEL MD Feb 23, 2020 22:51
[2020-02-24] MEDS: LEVOTHYROXINE 50 MCG TABLET PO SCH (06:07)
[2020-02-24 06:16] VITALS: BP 126/74
[2020-02-24] MEDS: DIVALPROEX 125 MG CAP.SPRINK PO SCH ×2 (08:18→20:12)
[2020-02-24] MEDS: POTASSIUM CHLORIDE 20 MEQ TABLET.ER. PO SCH ×3 (08:19→20:10)
[2020-02-24] MEDS: BENZTROPINE MESYLATE 0.5 MG TABLET PO SCH (08:19)
[2020-02-24] MEDS: SPIRONOLACTONE 25 MG TABLET PO SCH (08:19)
[2020-02-24] MEDS: LUBIPROSTONE 24 MCG CAPSULE PO SCH ×2 (08:19→17:00)
[2020-02-24] MEDS: ACETAMINOPHEN 325 MG TABLET PO SCH ×3 (08:19→20:11)
[2020-02-24] MEDS: TOPIRAMATE 100 MG TABLET. PO SCH ×2 (08:20→20:11)
[2020-02-24] MEDS: POLYVINYL ALCOHOL/POVIDONE/PF OPHTH SOLUTION DROPERETTE. OU SCH ×3 (08:20→20:10)
[2020-02-24] MEDS: CETIRIZINE HCL 10 MG TABLET PO SCH (08:20)
[2020-02-24] MEDS: ASPIRIN ENTERIC COATED 81 MG TABLET.DR. PO SCH (08:20)
[2020-02-24] MEDS: NYSTATIN 100,000 UNIT/GM TOPICAL CREAM 15GM TUBE. TP SCH ×3 (08:24→20:12)
[2020-02-24] MEDS: NYSTATIN TOPICAL POWDER 15GM BOTTLE. TP SCH ×3 (08:24→20:12)
[2020-02-24 15:36] VITALS: BP 164/80
[2020-02-24] MEDS: DULoxetine HCL 30 MG CAPSULE.DR PO SCH (20:10)
[2020-02-24] MEDS: MIRTAZAPINE ODT 30 MG TAB.RAPDIS. PO SCH (20:10)
[2020-02-24] MEDS: QUEtiapine 100 MG TABLET. PO SCH (20:11)
[2020-02-24] MEDS: LATANOPROST 0.005% OPHTH SOLUTION 2.5ML BOTTLE. OU SCH (20:12)
--- NOTE | 2020-02-24 22:34 | PDOC ---
Exam Note: David Note: S/O: This note covers elements not covered in my initial note. The patient was seen on audio-visual rounds in the evening with Addi KEEN. Discussed the patient with nursing staff reviewed the chart. Nursing report was with Addi KEEN. She slept reasonably well last night. She states she has done well during the day but has been somewhat tired. ROS: Ambulation impaired in wheelchair. No CV, , Pulmonary, Eye system symptoms on review. MSE: The patient was pleasant, verbal, interactive and smiling. Speech coherent. Abstraction fair. Computation impaired. Language function intact. Mood and affect is improved. No suicidal or homicidal ideation. Labs: Reviewed. Imp: Schizoaffective disorder, bipolar type versus bipolar disorder mixed with psychotic features. Major depressive disorder. Anxiety disorder unspecified. Impulse control disorder unspecified. Plan: Continue psychotropics from initial note. Transition to long-term on 02/25/2020. Assessment: Vital Signs/I&O: Vital Signs Date Time Temp Pulse Resp B/P (MAP) Pulse Ox O2 Delivery O2 Flow Rate FiO2 02/24/20 15:36 98.4 81 18 164/80 (108) 95 2.0 02/22/20 15:34 Nasal Cannula I & O 02/23/20 02/23/20 02/24/20 15:00 23:00 07:00 Intake Total 720 ml 360 ml 120 ml Balance 720 ml 360 ml 120 ml Current Medications: I have reviewed the current psychotropics carefully including drug interactions. Risk benefit ratio favors no change other than as noted in my dictated progress note. Diagnosis: Problems: (1) Schizoaffective disorder, bipolar type (2) Anxiety disorder (3) Schizoaffective disorder, chronic condition with acute exacerbation (4) Impulse control disorder TERRENCE DANIEL MD Feb 24, 2020 22:34
[2020-02-25 05:52] VITALS: BP 162/67
[2020-02-25] MEDS: LEVOTHYROXINE 50 MCG TABLET PO SCH (06:27)
[2020-02-25] MEDS: POTASSIUM CHLORIDE 20 MEQ TABLET.ER. PO SCH (08:44)
[2020-02-25] MEDS: DIVALPROEX 125 MG CAP.SPRINK PO SCH (08:45)
[2020-02-25] MEDS: SPIRONOLACTONE 25 MG TABLET PO SCH (08:45)
[2020-02-25] MEDS: ACETAMINOPHEN 325 MG TABLET PO SCH (08:45)
[2020-02-25] MEDS: ASPIRIN ENTERIC COATED 81 MG TABLET.DR. PO SCH (08:45)
[2020-02-25] MEDS: TOPIRAMATE 100 MG TABLET. PO SCH (08:45)
[2020-02-25] MEDS: BENZTROPINE MESYLATE 0.5 MG TABLET PO SCH (08:46)
[2020-02-25] MEDS: NYSTATIN TOPICAL POWDER 15GM BOTTLE. TP SCH (08:46)
[2020-02-25] MEDS: POLYVINYL ALCOHOL/POVIDONE/PF OPHTH SOLUTION DROPERETTE. OU SCH (08:46)
[2020-02-25] MEDS: LUBIPROSTONE 24 MCG CAPSULE PO SCH (08:46)
[2020-02-25] MEDS: CETIRIZINE HCL 10 MG TABLET PO SCH (08:46)
[2020-02-25] MEDS: NYSTATIN 100,000 UNIT/GM TOPICAL CREAM 15GM TUBE. TP SCH (08:46)
--- NOTE | 2020-02-25 22:09 | PDOC ---
Exam Note: David Note: Please also refer to the separate dictated note~for this date of service dictated separately.~Patient seen individually. Discussed the patient with Nursing staff reviewed the chart.~Reviewed interim history and current functioning. Reviewed vital signs,~Labs/ Radiology~and current medications noted below. Continue current treatment with the changes noted in the dictated addendum note Assessment: Vital Signs/I&O: Vital Signs Date Time Temp Pulse Resp B/P (MAP) Pulse Ox O2 Delivery O2 Flow Rate FiO2 02/25/20 05:52 97.4 72 18 162/67 (98) 98 2.0 02/22/20 15:34 Nasal Cannula I & O 02/24/20 02/24/20 02/25/20 15:00 23:00 07:00 Intake Total 1080 ml 660 ml Balance 1080 ml 660 ml Current Medications: I have reviewed the current psychotropics carefully including drug interactions. Risk benefit ratio favors no change other than as noted in my dictated progress note. Diagnosis: Problems: (1) Schizoaffective disorder, bipolar type (2) Anxiety disorder (3) Schizoaffective disorder, chronic condition with acute exacerbation (4) Impulse control disorder TERRENCE DANIEL MD Feb 25, 2020 22:09
--- NOTE | 2020-02-25 22:38 | DS ---
DATE OF DISCHARGE: 02/25/2020 DISCHARGE SUMMARY/PSYCHIATRIC PROGRESS NOTE This note covers elements not covered in my initial note on 02/25/2020. REASON FOR ADMISSION: Please refer to the admission history for details. Briefly, the patient is a 69-year-old female referred to us from [facility] on account of increasing anger, verbal aggression towards staff, refusing cares, being argumentative, urinating on the floor, having marked mood lability, threatening staff and peers. The patient has a diagnosis of bipolar disorder versus schizoaffective disorder. She had an acute exacerbation of her symptoms. Behaviors were unmanageable, dangerous at the facility resulting in this referral. SIGNIFICANT FINDINGS AND CLINICAL COURSE: Following admission, the patient was seen daily individually by myself from a psychiatric standpoint, medical followup per Dr. Bragg/Dr. Coelho. The patient was extremely labile in her mood, manic, anxious at admission. Adjustments were made in her psychotropics. She seemed to respond to a combination of Depakote 500 mg at 0900 and 750 mg at bedtime with a therapeutic level of 58. Ammonia was normal at 10. Cogentin was reduced down to 0.5 mg daily and she was also on Cymbalta 30 mg at bedtime, Remeron 30 mg at bedtime and Seroquel 250 mg at bedtime. She was also on Topamax 150 mg b.i.d., which was continued from what she was taking prior to admission. REVIEW OF SYSTEMS: Prior to discharge on 02/25/2020, ambulation impaired, in wheelchair. No CV, , pulmonary, eye system symptoms on review. MENTAL STATUS EXAMINATION: The patient is reasonably oriented. Speech coherent, abstraction fair, computation impaired, language function intact. Mood and affect is improved. She is pleasant, verbal, smiling. No suicidal or homicidal ideation. Aggression and agitation, much improved. CONDITION AT DISCHARGE: Improved. FINAL DIAGNOSES: Bipolar disorder, manic versus mixed with psychotic features, in partial remission; anxiety disorder, unspecified; impulse control disorder, unspecified. Rest unchanged from admission. DISCHARGE MEDICATIONS: Please refer to the [facility]. DISCHARGE INSTRUCTIONS: Outpatient psychiatric and medical followup at the group home. Time for discharge day management greater than 30 minutes. TERRENCE DANIEL MD DR: GILDA/macario JOB#: [id number] / [id number]
== END 2020-02-25 13:00 | DRG 885 ==
LOC: ER 11:23 → GEROPSY 13:41
PROVIDERS: ADMIT Psychiatry & Neurology Psychiatry; ATTEND Psychiatry & Neurology Psychiatry
DX: F25.0 Schizoaffective disorder, bipolar type (principal); N39.0 Urinary tract infection, site not specified; Z68.43 Body mass index [BMI] 50.0-59.9, adult; F41.9 Anxiety disorder, unspecified; F63.9 Impulse disorder, unspecified; F32.9 Major depressive disorder, single episode, unspecified; E03.9 Hypothyroidism, unspecified; E66.01 Morbid (severe) obesity due to excess calories; E83.51 Hypocalcemia; E87.6 Hypokalemia; F41.1 Generalized anxiety disorder; H40.9 Unspecified glaucoma; I11.0 Hypertensive heart disease with heart failure; I50.9 Heart failure, unspecified; I87.8 Other specified disorders of veins; K21.9 Gastro-esophageal reflux disease without esophagitis; K58.9 Irritable bowel syndrome, unspecified; M81.0 Age-related osteoporosis without current pathological fracture; Z79.899 Other long term (current) drug therapy; Z90.49 Acquired absence of other specified parts of digestive tract; M19.90 Unspecified osteoarthritis, unspecified site; Z88.0 Allergy status to penicillin; Z88.2 Allergy status to sulfonamides; Z20.828 Contact with and (suspected) exposure to other viral communicable diseases
CPT/HCPCS: 36415; 71045; 80053; 80061; 80164; 80307; 80329; 81001; 82140; 82306; 82553; 82607; 83036; 83540; 83550; 83735; 84436; 84443; 84480; 84484; 85025; 85610; 85730; 86592; 87070; 87086; 87420; 87635; 87804; 87880; 93005; G0480; J1650; Q0162; Q0163; 99285-25